=== PATIENT | female | born 1995 | race Hispanic/Latino ===

== ENCOUNTER 2018-05-17 17:42 | Emergency (ER) | payer SELFPAY ==
[2018-05-17] MEDS ORDERED: KETOROLAC 30 MG/ML INJ ONE (19:12)
[2018-05-17] MEDS ORDERED: FENTANYL CITR 100 MCG/2 ML ONE (19:12)
[2018-05-17] MEDS ORDERED: LIDOCAINE 1% MPF 30 ML VIAL ONE (20:13)
--- NOTE | 2018-05-17 20:52 | ER ---
Nurse's Notes [facility] Name: Bette Dahl Age: 23 yrs Sex: Female : 1995 Arrival Date: 05/17/2018 Time: 17:46 Bed 19 Private MD: None, None Diagnosis: Cutaneous abscess of limb;Cellulitis of left lower limb Presentation: 05/17 18:18 Presenting complaint: Patient states: Abscess to back of L upper leg, seen in [facility] and prescribed Clindamycin and bactroban, reports that mother drained abscess yesterday and today,appears to be approx nickel sized w/ purulent drainage noted, pt denies fever, V/D reports nausea yesterday. Transition of care: patient was not received from another setting of care. Onset of symptoms was May 17, 2018. Risk Assessment: Do you want to hurt yourself or someone else? Patient reports no desire to harm self or others. Initial Sepsis Screen: Does the patient meet any 2 criteria? No. Patient's initial sepsis screen is negative. Does the patient have a suspected source of infection? No. Patient's initial sepsis screen is negative. Care prior to arrival: None. 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 Denies injuries from another. Nutritional hb screening: No deficits noted. Tuberculosis screening: No symptoms or risk factors identified. Fall Risk None identified. Assessment: 18:27 General: Appears in no apparent distress. Behavior is calm, cooperative. Pain: Pain hb currently is 2 out of 10 on a pain scale. Neuro: Level of Consciousness is awake, alert, obeys commands, Oriented to person, place, time, situation. Cardiovascular: Capillary refill < 3 seconds Patient's skin is warm and dry. Respiratory: Airway is patent Trachea midline Respiratory effort is even, unlabored, Respiratory pattern is regular, symmetrical. GI: No signs and/or symptoms were reported involving the gastrointestinal system. : No signs and/or symptoms were reported regarding the genitourinary system. EENT: No signs and/or symptoms were reported regarding the EENT system. Derm: Skin is healthy with good turgor, Abscess located on left leg is nickel sized, has purulent drainage, is hot to touch, is red. Musculoskeletal: No signs and/or symptoms reported regarding the musculoskeletal system. 20:00 Reassessment: Patient and/or family updated on plan of care and expected duration. Pain ls4 level reassessed. Patient is alert, oriented x 3, equal unlabored respirations, skin warm/dry/pink. 21:14 Reassessment: Patient and/or family updated on plan of care and expected duration. Pain ls4 level reassessed. Patient is alert, oriented x 3, equal unlabored respirations, skin warm/dry/pink. Patient states symptoms have improved. Vital Signs: 18:21 BP 132 / 84; Pulse 115; Resp 16; Temp 98.5(TE); Pulse Ox 100% on R/A; Weight 90.26 kg; ph Height 4 ft. 11 in. (149.86 cm); 20:29 BP 131 / 82; Pulse 107; Resp 16; Pulse Ox 99% on R/A; mt 21:14 BP 130 / 80; Pulse 78; Resp 16; Pulse Ox 99% on R/A; Pain 3/10; ls4 18:21 Body Mass Index 40.19 (90.26 kg, 149.86 cm) ph ED Course: 17:46 Patient arrived in ED. mr 17:47 None, None is Private Physician. mr 18:15 Myra Crenshaw FNP-C [facility]. snw 18:15 Evangelista Diaz MD is Attending Physician. snw 18:21 Triage completed. ph 18:22 Arm band placed on. ph 18:27 Jany Strickland, RINA is Primary Nurse. hb 18:28 Patient has correct armband on for positive identification. Bed in low position. Call light in reach. Side rails up X 1. 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 Exp: ls4 06/25/2020. Lot #: [id number]. } Route: IM; Site: left deltoid; 21:31 Follow up: Response: No adverse reaction ls4 Outcome: 20:52 Discharge ordered by . snnicole 21:15 Discharged to home ambulatory, with family. ls4 21:15 Condition: good 21:15 Discharge instructions given to patient, friend, Instructed on discharge instructions, follow up and referral plans. medication usage, safety practices, Demonstrated understanding of instructions, follow-up care, medications, wound care, Prescriptions given X 1. 21:24 Patient left the ED. ls4 Signatures: Myra Crenshaw, INTERNAL COMBUSTION ENGINEER-C INTERNAL COMBUSTION ENGINEER-Lisset Pemberton Patricia RN RN Jany Lopez RN RN hb [facility] Varsha Christopher RN RN ls4
--- NOTE | 2018-05-17 20:53 | EDPHYS ---
Physician Documentation [facility] Name: Bette Dahl Age: 23 yrs Sex: Female : 1995 Arrival Date: 05/17/2018 Time: 17:46 Bed 19 Private MD: None, None ED Physician Evangelista Diaz HPI: 05/17 19:05 This 23 yrs old Female presents to ER via Ambulatory with complaints of snw Abscess. 19:05 The patient presents with an abscess of the left hamstring, The patient presents with snw cellulitis of the left hamstring. Description: firm exudate noted. Onset: The symptoms/episode began/occurred 1 week(s) ago, and became worse. Associated signs and symptoms: Pertinent positives: pain. Severity of symptoms: At their worst the symptoms were moderate. The patient has not experienced similar symptoms in the past. The patient has been recently seen by a physician: Pt was seen at a [place] ER and given oral and topical abx, area has since worsened and her Mom squeezed area and large amount of exudate returned. 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 ph Historical: - Allergies: 18:23 No Known Allergies; ph - Home Meds: 18:23 oral control [Active]; ph - PMHx: 18:23 None; ph - PSHx: 18:23 None; ph ROS: 19:04 Constitutional: Negative for fever, chills, and weight loss, Eyes: Negative for injury, snw pain, redness, and discharge, ENT: Negative for injury, pain, and discharge, Neck: Negative for injury, pain, and swelling, Cardiovascular: Negative for chest pain, palpitations, and edema, Respiratory: Negative for shortness of breath, cough, wheezing, and pleuritic chest pain, Abdomen/GI: Negative for abdominal pain, nausea, vomiting, diarrhea, and constipation, Back: Negative for injury and pain, : Negative for injury, bleeding, discharge, and swelling, Skin: Negative for injury, rash, and discoloration, Neuro: Negative for headache, weakness, numbness, tingling, and seizure, Psych: Negative for depression, anxiety, suicide ideation, homicidal ideation, and hallucinations. 19:04 MS/extremity: Positive for pain, of the left posterior thigh, abscess, cellulitis. Exam: 19:01 Constitutional: This is a well developed, well nourished patient who is awake, alert, snw and in no acute distress. Head/Face: Normocephalic, atraumatic. Eyes: Pupils equal round and reactive to light, extra-ocular motions intact. Lids and lashes normal. Conjunctiva and sclera are non-icteric and not injected. Cornea within normal limits. Periorbital areas with no swelling, redness, or edema. ENT: Nares patent. No nasal discharge, no septal abnormalities noted. Tympanic membranes are normal and external auditory canals are clear. Oropharynx with no redness, swelling, or masses, exudates, or evidence of obstruction, uvula midline. Mucous membranes moist. Neck: Trachea midline, no thyromegaly or masses palpated, and no cervical lymphadenopathy. Supple, full range of motion without nuchal rigidity, or vertebral point tenderness. No Meningismus. Chest/axilla: Normal chest wall appearance and motion. Nontender with no deformity. No lesions are appreciated. 19:01 Respiratory: Lungs have equal breath sounds bilaterally, clear to auscultation and percussion. No rales, rhonchi or wheezes noted. No increased work of breathing, no retractions or nasal flaring. Abdomen/GI: Soft, non-tender, with normal bowel sounds. No distension or tympany. No guarding or rebound. No evidence of tenderness throughout. Back: No spinal tenderness. No costovertebral tenderness. Full range of motion. MS/ Extremity: Pulses equal, no cyanosis. Neurovascular intact. Full, normal range of motion. Neuro: Awake and alert, GCS 15, oriented to person, place, time, and situation. Cranial nerves II-XII grossly intact. Motor strength 5/5 in all extremities. Sensory grossly intact. Cerebellar exam normal. Normal gait. Psych: Awake, alert, with orientation to person, place and time. Behavior, mood, and affect are within normal limits. 19:01 Cardiovascular: Rate: tachycardic, Pulses: no pulse deficits are appreciated, Edema: is not appreciated. 19:01 Skin: Appearance: normal except for affected area, abscess, that is moderate sized, approximately 2 cm(s), of the left hamstring, thick exudate noted. Vital Signs: 18:21 BP 132 / 84; Pulse 115; Resp 16; Temp 98.5(TE); Pulse Ox 100% on R/A; Weight 90.26 kg; ph Height 4 ft. 11 in. (149.86 cm); 20:29 BP 131 / 82; Pulse 107; Resp 16; Pulse Ox 99% on R/A; mt 21:14 BP 130 / 80; Pulse 78; Resp 16; Pulse Ox 99% on R/A; Pain 3/10; ls4 18:21 Body Mass Index 40.19 (90.26 kg, 149.86 cm) ph Procedures: 20:48 I \T\ D: Incision and drainage was performed for an abscess of the left left leg Prepped snw with hibiclens. Anesthetized with 8 ml's 1% Lidocaine. Drained small amount Loculations removed. Abscess cavity explored. Dressing: sterile 4x4 gauze, the patient tolerated the procedure well. MDM: 18:28 Patient medically screened. snw 20:48 Data reviewed: vital signs, nurses notes. Data interpreted: Pulse oximetry: on room air snw is 99 %. Interpretation: normal. Counseling: I had a detailed discussion with the patient and/or guardian regarding: the historical points, exam findings, and any diagnostic results supporting the discharge/admit diagnosis, radiology results, the need for outpatient follow up, to return to the emergency department if symptoms worsen or persist or if there are any questions or concerns that arise at home. Special discussion: I have referred the patient to see his PCP for further evaluation of high blood pressure. I discussed in detail with the patient the higher chance of wound infection based on his presenting history. Based on the history and exam findings, there is no indication for further emergent testing or inpatient evaluation. I discussed with the patient/guardian the need to see the primary care provider for further evaluation of the symptoms. 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 Exp: ls4 06/25/2020. Lot #: [id number]. } Route: IM; Site: left deltoid; 21:31 Follow up: Response: No adverse reaction ls4 Disposition: 05/18 07:03 Co-signature as Attending Physician, Evangelista Diaz MD. rn Disposition: 05/17/18 20:52 Discharged to Home. Impression: Cutaneous abscess of limb, Cellulitis of left lower limb. - Condition is Stable. - Discharge Instructions: Skin Abscess, Cellulitis, Adult, Heat Therapy. - Prescriptions for Diclofenac Sodium 75 mg Oral Tablet Sustained Release - take 1 tablet by ORAL route 2 times per day; 30 tablet. - Work release form, Medication Reconciliation Form, Thank You Letter, Antibiotic Education, Prescription Opioid Use form. - Follow up: Private Physician; When: 2 - 3 days; Reason: Recheck today's complaints, Continuance of care, Re-evaluation by your physician. Follow up: Emergency Department; When: As needed; Reason: Worsening of condition. - Notes: continue Clindamycin Signatures: Myra Crenshaw, LASTING MACHINE OPERATOR BED-C LASTING MACHINE OPERATOR BED-Csnw Evangelista Diaz MD MD rn Hall, Patricia, RN RN Varsha Christopher RN RN ls4 Corrections: (The following items were deleted from the chart) 05/17 20:52 20:52 05/17/2018 20:52 Discharged to Home. Impression: Cutaneous abscess of limb. snw Condition is Stable. Forms are Medication Reconciliation Form, Thank You Letter, Antibiotic Education, Prescription Opioid Use. Follow up: Private Physician; When: 2 - 3 days; Reason: Recheck today's complaints, Continuance of care, Re-evaluation by your physician. Follow up: Emergency Department; When: As needed; Reason: Worsening of condition. snw 21:24 20:52 05/17/2018 20:52 Discharged to Home. Impression: Cutaneous abscess of limb; ls4 Cellulitis of left lower limb. Condition is Stable. Forms are Medication Reconciliation Form, Thank You Letter, Antibiotic Education, Prescription Opioid Use. Follow up: Private Physician; When: 2 - 3 days; Reason: Recheck today's complaints, Continuance of care, Re-evaluation by your physician. Follow up: Emergency Department; When: As needed; Reason: Worsening of condition. snw
[2018-05-17] MEDS ORDERED: TETANUS & DIPHTHERIA TOX,ADULT 0.5 ML VIAL ONE (21:14)
== END 2018-05-17 21:24 | disposition home or self-care (01) ==
LOC: ER 17:42
PROC: 0J9P0ZZ Drainage of Left Lower Leg Subcutaneous Tissue and Fascia, Open Approach (ICD-10-PCS; principal; 2018-05-17)
DX: L03.116 Cellulitis of left lower limb (principal); Z23 Encounter for immunization
CPT/HCPCS: 90714; 96372; 99283; J3010

== ENCOUNTER 2019-03-05 20:52 | Observation (INO) | payer SELFPAY ==
[2019-03-05] MEDS ORDERED: ONDANSETRON 4 MG/2 ML VIAL ONE (21:14)
[2019-03-05] MEDS ORDERED: NA CHLORIDE 0.9% 1,000 ML ONE (21:14)
[2019-03-05] MEDS ORDERED: FAMOTIDINE 20 MG/2 ML VIAL IV ONE (21:15)
[2019-03-05 21:22] LABS: Absolute Lymphocytes (CBC) 3.3 K/uL (0.7-4.9); Basophils % 0.6 % (0-1.3); Hematocrit 40.8 % (36.0-45.0); Lymphocytes % 40.3 % (15.3-44.8); MPV 8.8 fL (7.6-11.3); RBC Red Blood Cell Count 4.54 M/uL (3.86-4.86)
[2019-03-05] MEDS ORDERED: MORPHINE 2 MG/ML SYR ONE ×3 (21:23→22:37)
[2019-03-05 21:40] LABS: ALT/SGPT 26 U/L (12-78); AST/SGOT 30 U/L (15-37); Alkaline Phosphatase 83 U/L (45-117); BUN Blood Urea Nitrogen 10 mg/dL (7-18); Bicarbonate 26 mmol/L (21-32); Bilirubin Direct 0.1 mg/dL (0-0.2); Bilirubin Total 0.4 mg/dL (0.2-1.0); Glucose Level 120 mg/dL (74-106); Lipase 164 U/L (73-393); Protein, Total 7.3 g/dL (6.4-8.2); Sodium Level 141 mmol/L (136-145)
[2019-03-05 22:32] LABS: Urine Blood NEGATIVE (NEG); Urine Glucose NEGATIVE (NEG); Urine Protein NEGATIVE (NEG); Urine Specific Gravity 1.025 (1.005-1.030)
--- NOTE | 2019-03-05 22:42 | EDPHYS ---
Physician Documentation [facility] Name: Bette Dahl Age: 24 yrs Sex: Female : 1995 Arrival Date: 03/05/2019 Time: 20:54 Bed 8 Private MD: ED Physician Rj Trujillo HPI: 03/05 21:10 This 24 yrs old Female presents to ER via Ambulatory with complaints of cp Abdominal Pain. 21:10 The patient presents with abdominal pain in the epigastric area. The symptoms do not cp radiate. Associated signs and symptoms: Pertinent positives: nausea and vomiting, chest pain, Pertinent negatives: constipation, diarrhea, dysuria, fever. 21:10 The symptoms are described as sharp. cp 21:10 Onset: The symptoms/episode began/occurred 10 minute(s) ago. Modifying factors: the cp symptoms are aggravated by pressure. Severity of pain: in the emergency department the pain is unchanged. 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 - Social history:: Smoking status: Patient/guardian denies using tobacco. - Ebola Screening: : No symptoms or risks identified at this time. ROS: 21:15 Constitutional: Negative for body aches, chills, fever, poor PO intake. cp 21:15 Eyes: Negative for injury, pain, redness, and discharge. cp 21:15 ENT: Negative for drainage from ear(s), ear pain, sore throat, difficulty swallowing, difficulty handling secretions. 21:15 Cardiovascular: Positive for chest pain. 21:15 Respiratory: Negative for cough, shortness of breath, wheezing. 21:15 Abdomen/GI: Positive for abdominal pain, nausea and vomiting, Negative for diarrhea, constipation, hematemesis. 21:15 Back: Negative for radiated pain. 21:15 : Negative for urinary symptoms, pelvic pain, flank pain, difficulty urinating. 21:15 Skin: Negative for rash. 21:15 Neuro: Negative for headache. 21:15 All other systems are negative. Exam: 21:20 Constitutional: The patient appears in no acute distress, alert, awake, cp non-diaphoretic, non-toxic, well developed, well nourished, uncomfortable. 21:20 Head/Face: Normocephalic, atraumatic. cp 21:20 Eyes: Periorbital structures: appear normal, Conjunctiva: normal, no exudate, no injection, Sclera: no appreciated abnormality, Lids and lashes: appear normal, bilaterally. 21:20 ENT: External ear(s): are unremarkable, Nose: is normal, Mouth: Lips: moist, Oral mucosa: pink and intact, moist, Posterior pharynx: is normal, airway is patent, no erythema, no exudate. 21:20 Chest/axilla: Inspection: normal, Palpation: is normal, no crepitus, no tenderness. 21:20 Cardiovascular: Rate: normal, Rhythm: regular. 21:20 Respiratory: the patient does not display signs of respiratory distress, Respirations: normal, no use of accessory muscles, no retractions, no splinting, no tachypnea, labored breathing, is not present, Breath sounds: are clear throughout, no decreased breath sounds, no stridor, no wheezing. 21:20 Abdomen/GI: Inspection: abdomen appears normal, Bowel sounds: active, all quadrants, Palpation: soft, in all quadrants, severe abdominal tenderness, in the epigastric area, voluntary guarding, is elicited in the epigastric area. 21:20 Back: pain, is absent, ROM is normal. 21:20 Neuro: Orientation: to person, place \T\ time. Mentation: is normal, Motor: moves all fours, strength is normal. Vital Signs: 21:06 BP 114 / 72; Pulse 90; Resp 18; Temp 97.8; Pulse Ox 100% on R/A; Weight 76.2 kg; Height aa1 4 ft. 11 in. (149.86 cm); Pain 7/10; 22:05 Pulse 70; Resp 16 S; Pulse Ox 100% on R/A; Pain 0/10; jd3 23:30 BP 113 / 59; Pulse 75; Resp 17 S; Pulse Ox 100% on R/A; jd3 21:06 Body Mass Index 33.93 (76.20 kg, 149.86 cm) aa1 MDM: 21:07 Patient medically screened. cp 22:35 Data reviewed: vital signs, nurses notes, lab test result(s), radiologic studies, cp ultrasound, I have discussed the patient's presentation/case with the attending Emergency Department Physician;. 22:40 Physician consultation: Estevan Lopez MD was called at 22:40, was contacted at 22:40, cp regarding admission, to the medical/surgical unit. patient's condition. 03/05 21:08 Order name: Basic Metabolic Panel; Complete Time: 21:42 03/05 21:42 Interpretation: Normal except: CL 109; GLUC 120. 03/05 21:08 Order name: CBC with Diff; Complete Time: 21:42 03/05 21:42 Interpretation: Reviewed. 03/05 21:08 Order name: Creatinine for Radiology; Complete Time: 21:42 03/05 21:08 Order name: Hepatic Function; Complete Time: 21:42 03/05 21:08 Order name: Lipase; Complete Time: 21:42 03/05 21:42 Interpretation: Reviewed. 03/05 22:29 Order name: Urine Dipstick--Ancillary (enter results); Complete Time: 22:34 [facility] 03/05 22:29 Order name: Urine --Ancillary (enter results); Complete Time: 22:34 [facility] 03/05 22:53 Order name: Basic Metabolic Panel [facility] 03/05 22:53 Order name: Basic Metabolic Panel [facility] 03/05 22:53 Order name: CBC with Automated Diff [facility] 03/05 22:53 Order name: CBC with Automated Diff [facility] 03/05 22:53 Order name: Lipase [facility] 03/05 22:53 Order name: Lipase [facility] 03/05 22:53 Order name: Liver (Hepatic) Function [facility] 03/05 21:08 Order name: IV Saline Lock; Complete Time: 21:20 03/05 21:08 Order name: Labs collected and sent; Complete Time: 21:20 03/05 21:08 Order name: Urine Dipstick-Ancillary (obtain specimen); Complete Time: 22:29 03/05 21:08 Order name: Urine Test (obtain specimen); Complete Time: 22:29 03/05 21:09 Order name: US Abdomen Limited 03/05 22:40 Order name: NPO; Complete Time: 22:43 03/05 22:53 Order name: NPO [facility] 09/29 22:53 Order name: Liver (Hepatic) Function EDMS Administered Medications: 21:25 Drug: Zofran 4 mg Route: IVP; Site: right antecubital; jd3 22:25 Follow up: Response: No adverse reaction jd3 21:25 Drug: Pepcid 20 mg Route: IVP; Site: right antecubital; jd3 22:25 Follow up: Response: No adverse reaction jd3 21:25 Drug: NS 0.9% 1000 ml Route: IV; Rate: 1 bolus; Site: right antecubital; jd3 23:01 Follow up: Response: No adverse reaction; IV Status: Completed infusion; IV Intake: jd3 1000ml 21:25 Drug: morphine 2 mg Route: IVP; Site: right antecubital; jd3 23:38 Follow up: Response: No adverse reaction; RASS: Alert and Calm (0) jd3 21:42 Drug: morphine 2 mg Route: IVP; Site: right antecubital; jd3 22:25 Follow up: Response: No adverse reaction; RASS: Alert and Calm (0) jd3 22:45 Drug: morphine 2 mg Route: IVP; Site: right antecubital; jd3 23:37 Follow up: Response: No adverse reaction; RASS: Alert and Calm (0) jd3 23:00 Drug: Rocephin 1 grams Route: IV; Rate: calculated rate; Site: right antecubital; jd3 23:37 Follow up: Response: No adverse reaction; IV Status: Completed infusion; IV Intake: [id number] Disposition: 03/06 06:32 Co-signature as Attending Physician, Rj Trujillo MD Available for consultation at ps1 all times . Disposition: 03/05/19 22:41 Hospitalization ordered by Estevan Lopez for Observation. Preliminary diagnosis are Cholelithiasis, Upper abdominal pain, unspecified - intractable. - Bed requested for Telemetry/MedSurg (observation). - Status is Observation. jd3 - Condition is Stable. - Problem is new. - Symptoms have improved. UTI on Admission? No Signatures: Dispatcher [employer] EDMS Dorene Aguilera RN RN mw Autenrieth, Alissa, RN RN aa1 Esau Anaya PA PA cp Davies, Jonathon, RN RN jd3 Singer, Phillip, MD MD ps1 Corrections: (The following items were deleted from the chart) 03/05 21:34 21:10 Onset: The symptoms/episode began/occurred suddenly, just prior to arrival, cp cp : 22:41 Hospitalization Ordered by Estevan Lopez MD for Observation. Preliminary cp diagnosis is Cholecystitis. Bed requested for Telemetry/MedSurg (observation). Status is Observation. Condition is Stable. Problem is new. Symptoms have improved. UTI on Admission? No. cp : 23:04 03/05/2019 22:41 Hospitalization Ordered by Estevan Lopez MD for Observation. mw Preliminary diagnosis is Cholelithiasis; Upper abdominal pain, unspecified - intractable. Bed requested for Telemetry/MedSurg (observation). Status is Observation. Condition is Stable. Problem is new. Symptoms have improved. UTI on Admission? No. cp 03/06 00:08 03/05 23:29 03/05/2019 22:41 Hospitalization Ordered by Estevan Lopez MD for jd3 Observation. Preliminary diagnosis is Cholelithiasis; Upper abdominal pain, unspecified - intractable. Bed requested for Telemetry/MedSurg (observation). Status is Observation. Condition is Stable. Problem is new. Symptoms have improved. UTI on Admission? No. mw
--- NOTE | 2019-03-05 22:42 | ER ---
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 Transition of care: patient was not received from another setting of care. Onset of symptoms was March 05, 2019. Risk Assessment: Do you want to hurt yourself or someone else? Patient reports no desire to harm self or others. Initial Sepsis Screen: Does the patient meet any 2 criteria? No. Patient's initial sepsis screen is negative. Does the patient have a suspected source of infection? Yes: Acute abdominal pain. Care prior to arrival: None. 21:04 Method Of Arrival: Ambulatory aa1 21:04 Acuity: SHAKIRA 3 aa1 Triage Assessment: 21:06 General: Appears in no apparent distress. uncomfortable, Behavior is calm, cooperative, aa1 appropriate for age. 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 - Social history:: Smoking status: Patient/guardian denies using tobacco. - Ebola Screening: : No symptoms or risks identified at this time. Screenin:31 Abuse screen: Denies threats or abuse. Nutritional screening: No deficits noted. jd3 Tuberculosis screening: No symptoms or risk factors identified. Fall Risk IV access (20 points). Ambulatory Aid- None/Bed Rest/Nurse Assist (0 pts). Gait- Normal/Bed Rest/Wheelchair (0 pts) Mental Status- Oriented to own ability (0 pts). Total Cervantes Fall Scale indicates No Risk (0-24 pts). Assessment: 21:05 General: Appears in no apparent distress. uncomfortable, Behavior is calm, cooperative, jd3 appropriate for age. Pain: Complains of pain in epigastric area Quality of pain is described as sharp, tender. Neuro: Level of Consciousness is awake, alert, obeys commands, Oriented to person, place, time, situation. Cardiovascular: Capillary refill < 3 seconds Patient's skin is warm and dry. Respiratory: Airway is patent Respiratory effort is even, unlabored, Respiratory pattern is regular, symmetrical. GI: Abdomen is round non-distended, Bowel sounds present X 4 quads. Abd is soft X 4 quads Abdomen is tender to palpation X 4 quads. Reports upper abdominal pain, nausea, Patient currently denies diarrhea. : No signs and/or symptoms were reported regarding the genitourinary system. EENT: No signs and/or symptoms were reported regarding the EENT system. Derm: Skin is intact, Skin is dry, Skin is normal, Skin temperature is warm. Musculoskeletal: Circulation, motion, and sensation intact. Range of motion: intact in all extremities. 21:33 Reassessment: Patient appears in no apparent distress at this time. Patient and/or jd3 family updated on plan of care and expected duration. Pain level reassessed. Patient is alert, oriented x 3, equal unlabored respirations, skin warm/dry/pink. pt reports relief from pain Patient states feeling better. 21:42 Reassessment: pt reported pain returning, provider notified. new order received, see jd3 MAR. 22:05 Reassessment: Patient appears in no apparent distress at this time. Patient and/or jd3 family updated on plan of care and expected duration. Pain level reassessed. Patient is alert, oriented x 3, equal unlabored respirations, skin warm/dry/pink. pt reports relief from pain. 23:30 Reassessment: Patient appears in no apparent distress at this time. Patient and/or jd3 family updated on plan of care and expected duration. Pain level reassessed. Patient is alert, oriented x 3, equal unlabored respirations, skin warm/dry/pink. Patient states feeling better. Vital Signs: 21:06 BP 114 / 72; Pulse 90; Resp 18; Temp 97.8; Pulse Ox 100% on R/A; Weight 76.2 kg; Height aa1 4 ft. 11 in. (149.86 cm); Pain 7/10; 22:05 Pulse 70; Resp 16 S; Pulse Ox 100% on R/A; Pain 0/10; jd3 23:30 BP 113 / 59; Pulse 75; Resp 17 S; Pulse Ox 100% on R/A; jd3 21:06 Body Mass Index 33.93 (76.20 kg, 149.86 cm) aa1 ED Course: 20:54 Patient arrived in ED. mr 21:02 Esau Anaya PA is PHCP. cp 21:02 Rj Trujillo MD is Attending Physician. cp 21:05 Triage completed. aa1 21:06 Arm band placed on right wrist. aa1 21:10 Elmer Varela RN is Primary Nurse. jd3 21:18 Inserted saline lock: 20 gauge in right antecubital area, using aseptic technique. mt Blood collected. 21:56 US Abdomen Limited In Process Unspecified. EDMS 22:41 Estevan Lopez MD is Hospitalizing Provider. cp 23:31 Patient has correct armband on for positive identification. Bed in low position. Call jd3 light in reach. Side rails up X2. Adult w/ patient. 23:41 No provider procedures requiring assistance completed. Patient admitted, IV remains in jd3 place. Administered Medications: 21:25 Drug: Zofran 4 mg Route: IVP; Site: right antecubital; jd3 22:25 Follow up: Response: No adverse reaction jd3 21:25 Drug: Pepcid 20 mg Route: IVP; Site: right antecubital; jd3 22:25 Follow up: Response: No adverse reaction jd3 21:25 Drug: NS 0.9% 1000 ml Route: IV; Rate: 1 bolus; Site: right antecubital; jd3 23:01 Follow up: Response: No adverse reaction; IV Status: Completed infusion; IV Intake: jd3 1000ml 21:25 Drug: morphine 2 mg Route: IVP; Site: right antecubital; jd3 23:38 Follow up: Response: No adverse reaction; RASS: Alert and Calm (0) jd3 21:42 Drug: morphine 2 mg Route: IVP; Site: right antecubital; jd3 22:25 Follow up: Response: No adverse reaction; RASS: Alert and Calm (0) jd3 22:45 Drug: morphine 2 mg Route: IVP; Site: right antecubital; jd3 23:37 Follow up: Response: No adverse reaction; RASS: Alert and Calm (0) jd3 23:00 Drug: Rocephin 1 grams Route: IV; Rate: calculated rate; Site: right antecubital; jd3 23:37 Follow up: Response: No adverse reaction; IV Status: Completed infusion; IV Intake: [id number] Intake: 23:01 IV: 1000ml; Total: 1000ml. jd3 23:37 IV: 10ml; Total: 1010ml. jd3 Outcome: 22:41 Decision to Hospitalize by Provider. cp 23:41 Admitted to Med/surg accompanied by tech, via wheelchair, room 409, with chart, Report jd3 called to Sussy FLYNN 23:41 Condition: stable 23:41 Instructed on the need for admit, Demonstrated understanding of instructions. 03/06 00:08 Patient left the ED. guerrero Signatures: Dispatcher [employer] EDMS Queenie Mckeon RN RN aa1 Deon, Lisset mr Esau Anaya PA PA cp Thompson, Elmer Rod mt, RN RN jd3 Corrections: (The following items were deleted from the chart) 03/05 23:38 22:25 Response: No adverse reaction jofe jofe
[2019-03-05] MEDS ORDERED: MORPHINE 4 MG/ML SYR IV PRN (22:48)
[2019-03-05] MEDS ORDERED: ONDANSETRON 4 MG/2 ML VIAL IV PRN (22:48)
[2019-03-05] MEDS ORDERED: ACETAMINOPHEN 500 MG TAB PO PRN (22:48)
--- NOTE | 2019-03-05 22:55 | RAD REPORT ---
EXAM DESCRIPTION: US - Abdomen Exam Limited - 03/05/2019 9:56 pm CLINICAL HISTORY: EPIGASTRIC PAIN COMPARISON: <Comparisons> FINDINGS: The gallbladder demonstrates several large shadowing stones No pericholecystic fluid or ga llbladder wall thickening. The common bile duct is normal measuring 5-6 mm. The liver demonstrates no findings of intrahepatic biliary dilatation. IMPRESSION: Cholelithiasis.
[2019-03-05] MEDS ORDERED: CEFTRIAXONE/SWI 1gm 1 GM/10 ML SYR ONE (22:58)
[2019-03-06 00:20] VITALS: BMI 35.5
[2019-03-06] MEDS: D5 0.45 NS 1,000 ML IV SCH ×2 (00:29→09:00)
[2019-03-06 05:43] LABS: Absolute Lymphocytes (CBC) 2.9 K/uL (0.7-4.9); Basophils % 0.5 % (0-1.3); Hematocrit 36.6 % (36.0-45.0); Lymphocytes % 32.5 % (15.3-44.8); MPV 9.1 fL (7.6-11.3); RBC Red Blood Cell Count 4.12 M/uL (3.86-4.86)
[2019-03-06 05:58] LABS: ALT/SGPT 27 U/L (12-78); AST/SGOT 22 U/L (15-37); Albumin 3.4 g/dL (3.4-5.0); Alkaline Phosphatase 69 U/L (45-117); BUN Blood Urea Nitrogen 6 mg/dL (7-18); Bicarbonate 25 mmol/L (21-32); Bilirubin Direct 0.1 mg/dL (0-0.2); Bilirubin Total 0.4 mg/dL (0.2-1.0); Glucose Level 87 mg/dL (74-106); Lipase 99 U/L (73-393); Potassium 3.6 mmol/L (3.5-5.1); Protein, Total 6.2 g/dL (6.4-8.2); Sodium Level 141 mmol/L (136-145)
[2019-03-06] MEDS ORDERED: INFLUENZA VACCINE (for 3y+) 0.5 ML DOSE IMVAC ONE (08:00)
[2019-03-06] MEDS ORDERED: CEFTRIAXONE 1 GM/NS 50 ML 1 GM/50 ML BAG IV SCH (09:00)
[2019-03-06] MEDS ORDERED: CEFTRIAXONE/SWI 1gm 1 GM/10 ML SYR IV SCH (09:00)
--- NOTE | 2019-03-06 11:10 | HP ---
Date of Admission: 03/05/2019 Reason For Service: Epigastric right upper quadrant pain, acute cholecystitis, and symptomatic toribio lithiasis. History Of Present Illness: This is the case of a 24-year-old patient, came overnight to the ER, com plaining of epigastric right upper quadrant pain radiating to the back with nausea, vomiting. The pa in is constant and intractable. She denies any dysuria, hematuria, hematochezia, or melena. Denies any recent traveling out of the country. Denies any family member sick at home. Allergies: NONE. Medical Problems: None. Surgeries: None. Last menstrual period 01/11/2019. Family History: Unremarkable. Social History: She does not smoke. She does not drink alcohol. Review of Systems: Ten points, otherwise unremarkable. Physical Examination: General: Patient is awake and alert. HEENT: Pupils are equal and reactive, anicteric. Neck: Supple. Chest: Clear. Heart: S1, S2. Abdomen: Epigastric right upper quadrant tenderness with Guy sign positive. Breasts, Rectal, Pel alvin: Deferred. Extremities: Good capillary refill. NEUROLOGIC: Oriented x3. Laboratory Data: Blood work shows WBC count of 8.2 with hemoglobin of 13.8 and platelets of 227. Sod ium is 141, chloride is 109, glucose 120. UA, nitrite negative. Urine test negative. Abd omen ultrasound interpreted by Dr. Quigley as cholelithiasis. Assessment: This is a 24-year-old patient with intractable right upper quadrant pain, diagnosed with acute cholecystitis, symptomatic cholelithiasis. Guy sign positive. She does not want to go home . She is very tender. She wants the gallbladder to be removed during this admission. The patient w as admitted to the hospital and explained that the options for laparoscopic, possible open cholecyste ctomy with benefits, alternatives, and risks including, but not limited to infection, bleeding, damag e to adjacent structures as complication, choledocholithiasis, bile leak, pancreatitis, LA, and even . She also understands this may not relieve any symptoms, she might need more than one surgical intervention. She understood, signed a consent. The patient was booked in OR. ALVARO/ROBBIE Voice ID: [id number]
[2019-03-06] MEDS ORDERED: Ringers Lactate 1,000 ML IV ONE (11:25)
[2019-03-06] MEDS ORDERED: PROPOFOL 200 MG/20 ML VIAL IV ONE (11:57)
[2019-03-06] MEDS ORDERED: GLYCOPYRROLATE 0.2 MG/ML SYR ONE (11:58)
[2019-03-06] MEDS ORDERED: LIDOCAINE 2% MPF 5 ML VIAL ONE (11:58)
[2019-03-06] MEDS ORDERED: FENTANYL CITR 250 MCG/5 ML ONE (11:58)
[2019-03-06] MEDS ORDERED: MIDAZOLAM HCL 2 MG/2 ML INJ ONE (11:58)
--- NOTE | 2019-03-06 12:45 | P.BOP ---
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
[2019-03-06] MEDS ORDERED: ONDANSETRON 4 MG/2 ML VIAL ONE (13:05)
[2019-03-06] MEDS ORDERED: ROCURONIUM 50 MG/5 ML VIAL IV ONE (13:05)
[2019-03-06] MEDS ORDERED: NEOSTIGMINE 1 MG/ML -10 ML VIAL ONE (13:05)
[2019-03-06] MEDS ORDERED: CODEINE 30MG/APAP 300MG TAB PO PRN (13:20)
[2019-03-06 13:31] VITALS: O2SAT 100
[2019-03-06 20:10] VITALS: BP 120/68; TEMP 98.7
--- NOTE | 2019-03-08 13:27 | OP ---
Surgeon: Estevan Lopez MD Participant Administrator: ELIZABETH Mckay. Preoperative Diagnoses: Acute cholecystitis, symptomatic cholelithiasis. Postoperative Diagnoses: Acute cholecystitis, symptomatic cholelithiasis. Procedure: Laparoscopic cholecystectomy. Anesthesia: General. Indications: This is a case of a female who comes to us with above diagnosis. Fully explained the b enefits, alternatives, and risks of laparoscopic, possible open cholecystectomy, which include but ar e not limited to infection, bleeding, damage to adjacent structures and complication, choledocholithi asis, bile leak, pancreatitis, MT, and even . She also understands this may not relieve the sym ptoms. She may need more than 1 surgical intervention. She understood, signed a consent. Description Of Procedure: The patient was brought to the operating room, placed in supine position. Anesthesia was given without complication. Abdominal area was prepped and draped in the usual steri le fashion. Marcaine 0.5% was injected for local anesthetic, followed by sharp incision of the skin in the infraumbilical region. Incision was carried down to fascia, which was opened under direct vis ion. Peritoneum was encountered, opened under direct vision. Vicryl #1 placed inside the fascia. H asson trocar was carefully introduced. No bleeding was obtained. I placed 3 more trocars, 5 mm each one of them, 1 in the epigastric area, 2 in the right upper quadrant under direct visualization. Th is allowed me to put a grasper in the dome of the fundus of the gallbladder, another grasper in the i nfundibulum, retracted the gallbladder in the inferolateral fashion exposing the triangle of Calot, o btaining critical view of safety. Cystic duct and cystic artery were clearly isolated free circumfer entially and a connection between those and the gallbladder was clearly identified. I proceeded to l igate those by using at least 3 clips proximal, 1 clip distal, ligation in middle. Same was done wit h the cystic artery. No bile leak. No bleeding. The gallbladder was removed from liver using hook Bovie cauterizer and removed from abdominal cavity using EndoCatch through the umbilical incision. T he area was inspected once again. No bile leak. No bleeding. Gallbladder fossa was intact. At patrick t moment, I proceeded to remove the trocars under direct vision. Deflated the pneumoperitoneum. Tanisha sed the fascia with #1 Vicryl. Irrigated subcu tissue, closed with 3-0 chromic and skin approximated . Sponge count and instrument counts were correct. The patient tolerated the procedure well. [facility]. ALVARO/ROBBIE Voice ID: [id number] Report ID: [id number]
--- NOTE | 2019-03-08 13:33 | DS ---
Date of Discharge: 03/06/2019 Diagnoses: Acute cholecystitis, symptomatic cholelithiasis. Procedure: Laparoscopic cholecystectomy. The patient will be discharged home if she can tolerate diet. Discharge Instructions: Follow in my office in 1 week if she goes home today otherwise tomorrow morn ing. No heavy lifting, no more than 20 pounds. Keep area dry for 48 hours, then may shower. Medications: See orders. ALVARO/ROBBIE Voice ID: [id number] Report ID: [id number]
== END 2019-03-06 20:15 | disposition home or self-care (01) ==
LOC: ER 20:52 → ERHOLD 22:46 → 4TH 23:56
PROVIDERS: ADMIT Surgery; ATTEND Surgery
PROC: 0FT44ZZ Resection of Gallbladder, Percutaneous Endoscopic Approach (ICD-10-PCS; principal; 2019-03-05)
DX: K80.00 Calculus of gallbladder with acute cholecystitis without obstruction (principal); Z28.21 Immunization not carried out because of patient refusal
CPT/HCPCS: 36415; 76705; 80048; 80076; 81003; 81025; 83690; 85025; 88304; 96361; 96365; 96375; 99285; G0378; J0696; J2250; J2270; J2405; J2704; J2710; J3010; J7030

== ENCOUNTER 2019-07-22 16:24 | Emergency (ER) | payer SELFPAY ==
--- NOTE | 2019-07-22 18:26 | EDPHYS ---
Physician Documentation [facility] Name: Bette Dahl Age: 24 yrs Sex: Female : 1995 Arrival Date: 07/22/2019 Time: 16:27 Bed 26 Private MD: ED Physician Esau Child HPI: 07/22 18:12 This 24 yrs old Female presents to ER via Ambulatory with complaints of Ankle snw Injury. 18:12 The patient presents with a contusion, decreased range of motion, an injury, pain, snw swelling, tenderness. The complaints affect the left ankle. Onset: The symptoms/episode began/occurred suddenly, last night. Context: pt states, "I got drunk and fell off the porch". Associated signs and symptoms: The patient has no apparent associated signs or symptoms. Modifying factors: The symptoms are alleviated by sitting. Severity of symptoms: At their worst the symptoms were moderate. It is unknown whether or not the patient has had similar symptoms in the past. It is unknown whether or not the patient has recently seen a physician. denies LOC. denies vomiting. Historical: - Allergies: 17:14 No Known Allergies; ls4 - Home Meds: 17:14 ORAL CONTROL [Active]; ls4 - PMHx: 17:15 None; ls4 - PSHx: 17:14 Cholecystectomy; ls4 - Immunization history:: Adult Immunizations up to date. - Coronavirus screen:: The patient has NOT traveled to [place] in the past 14 days. Proceed with normal triage process as indicated. - Social history:: Smoking status: Patient denies any tobacco usage or history of. - Ebola Screening: : No symptoms or risks identified at this time. ROS: 18:11 Constitutional: Negative for fever, chills, and weight loss, Eyes: Negative for injury, snw pain, redness, and discharge, ENT: Negative for injury, pain, and discharge, Neck: Negative for injury, pain, and swelling, Cardiovascular: Negative for chest pain, palpitations, and edema, Respiratory: Negative for shortness of breath, cough, wheezing, and pleuritic chest pain, Abdomen/GI: Negative for abdominal pain, nausea, vomiting, diarrhea, and constipation, Back: Negative for injury and pain, : Negative for injury, bleeding, discharge, and swelling, Skin: Negative for injury, rash, and discoloration, Neuro: Negative for headache, weakness, numbness, tingling, and seizure. 18:11 MS/extremity: Positive for injury or acute deformity, decreased range of motion, pain, swelling, tenderness, of the left ankle. Exam: 18:09 Constitutional: This is a well developed, well nourished patient who is awake, alert, snw and in no acute distress. Head/Face: Normocephalic, atraumatic. Eyes: Pupils equal round and reactive to light, extra-ocular motions intact. Lids and lashes normal. Conjunctiva and sclera are non-icteric and not injected. Cornea within normal limits. Periorbital areas with no swelling, redness, or edema. ENT: Nares patent. No nasal discharge, no septal abnormalities noted. Tympanic membranes are normal and external auditory canals are clear. Oropharynx with no redness, swelling, or masses, exudates, or evidence of obstruction, uvula midline. Mucous membranes moist. Neck: Trachea midline, no thyromegaly or masses palpated, and no cervical lymphadenopathy. Supple, full range of motion without nuchal rigidity, or vertebral point tenderness. No Meningismus. Cardiovascular: Regular rate and rhythm with a normal S1 and S2. No gallops, murmurs, or rubs. Normal PMI, no JVD. No pulse deficits. Respiratory: Lungs have equal breath sounds bilaterally, clear to auscultation and percussion. No rales, rhonchi or wheezes noted. No increased work of breathing, no retractions or nasal flaring. Abdomen/GI: Soft, non-tender, with normal bowel sounds. No distension or tympany. No guarding or rebound. No evidence of tenderness throughout. Back: No spinal tenderness. No costovertebral tenderness. Full range of motion. Skin: Warm, dry with normal turgor. Normal color with no rashes, no lesions, and no evidence of cellulitis. Neuro: Awake and alert, GCS 15, oriented to person, place, time, and situation. Cranial nerves II-XII grossly intact. Motor strength 5/5 in all extremities. Sensory grossly intact. Cerebellar exam normal. Normal gait. Psych: Awake, alert, with orientation to person, place and time. Behavior, mood, and affect are within normal limits. 18:09 Chest/axilla: Inspection: normal, Palpation: tenderness, that is moderate, of the anterior aspect of left upper chest, Breasts: are normal. 18:09 Musculoskeletal/extremity: Extremities: grossly normal except: noted in the left lateral ankle: contusion, decreased ROM, ecchymosis, swelling, tenderness, ROM: limited active range of motion due to pain, in the left lateral ankle, limited passive range of motion due to pain, Circulation is intact in all extremities. Compartment Syndrome exam of affected extremity: is normal. Vital Signs: 16:56 BP 112 / 70 LA; Pulse 87; Resp 17; Temp 98.5(O); Pulse Ox 99% on R/A; Pain 2/10; jb1 18:50 BP 110 / 60; Pulse 74; Resp 16; Temp 98.4(O); Pulse Ox 99% on R/A; Pain 5/10; ls4 MDM: 16:57 Patient medically screened. snw 18:26 Data reviewed: vital signs, nurses notes. Data interpreted: Pulse oximetry: on room air snw is 99 %. Interpretation: normal. Counseling: I had a detailed discussion with the patient and/or guardian regarding: the historical points, exam findings, and any diagnostic results supporting the discharge/admit diagnosis, radiology results, the need for outpatient follow up, to return to the emergency department if symptoms worsen or persist or if there are any questions or concerns that arise at home. Special discussion: Based on the history and exam findings, there is no indication for further emergent testing or inpatient evaluation. I discussed with the patient/guardian the need to see the orthopedic surgeon for further evaluation of the symptoms. I discussed with the patient/guardian the need to see the primary care provider for further evaluation of the symptoms. 07/22 17:49 Order name: Ankle Left 3 View XRAY snw 07/22 17:54 Order name: Chest Pa And Lat (2 Views) XRAY snw 07/22 18:24 Order name: Walking boot; Complete Time: 18:49 snw Administered Medications: 18:40 Drug: Blanco 5 mg-325 mg 1 tabs Route: PO; ls4 Disposition: 07/22/19 18:25 Discharged to Home. Impression: Fall (on) (from) unspecified stairs and steps, Contusion of front wall of thorax, Sprain of ankle. - Condition is Stable. - Discharge Instructions: Elastic Bandage and RICE, Ankle Sprain, Chest Contusion, Adult, Fall Prevention in the Home, Ankle Pain, Cryotherapy, Walking Boot. - Prescriptions for Diclofenac Sodium 75 mg Oral Tablet Sustained Release - take 1 tablet by ORAL route 2 times per day; 30 tablet. - Medication Reconciliation Form, Thank You Letter, Antibiotic Education, Prescription Opioid Use, Work release form form. - Follow up: Emergency Department; When: As needed; Reason: Worsening of condition. Follow up: Private Physician; When: 2 - 3 days; Reason: Recheck today's complaints, Continuance of care, Re-evaluation by your physician. Addendum: 07/24/2019 08:26 Co-signature as Attending Physician, Esau Child MD I agree with the assessment and c sanz plan of care. Signatures: Dispatcher [employer] EDEsau Duke MD MD cha Therrien, Shelly, ADVERTISING VICE PRESIDENT-C ADVERTISING VICE PRESIDENT-Csnw Varsha Christopher, RN RN ls4 Corrections: (The following items were deleted from the chart) 07/22 18:56 18:25 07/22/2019 18:25 Discharged to Home. Impression: Fall (on) (from) unspecified ls4 stairs and steps; Contusion of front wall of thorax; Sprain of ankle. Condition is Stable. Forms are Medication Reconciliation Form, Thank You Letter, Antibiotic Education, Prescription Opioid Use. Follow up: Emergency Department; When: As needed; Reason: Worsening of condition. Follow up: Private Physician; When: 2 - 3 days; Reason: Recheck today's complaints, Continuance of care, Re-evaluation by your physician. snw
--- NOTE | 2019-07-22 18:26 | ER ---
Nurse's Notes [facility] Name: Bette Dahl Age: 24 yrs Sex: Female : 1995 Arrival Date: 07/22/2019 Time: 16:27 Bed 26 Private MD: Diagnosis: Fall (on) (from) unspecified stairs and steps;Contusion of front wall of thorax;Sprain of ankle Presentation: 07/22 17:07 Presenting complaint: Patient states: LEFT ANKLE PAIN. ANKLE IS BRUISED. PT FELL LAST ls4 NIGHT. Transition of care: patient was not received from another setting of care. Onset of symptoms was July 22, 2019 at 17:08. Risk Assessment: Do you want to hurt yourself or someone else? Patient reports no desire to harm self or others. Initial Sepsis Screen: Does the patient meet any 2 criteria? No. Patient's initial sepsis screen is negative. Does the patient have a suspected source of infection? No. Patient's initial sepsis screen is negative. Care prior to arrival: None. 17:07 Method Of Arrival: Ambulatory ls4 17:07 Acuity: SHAKIRA 4 ls4 Triage Assessment: 16:50 General: Appears uncomfortable, Behavior is calm, cooperative. Pain: Complains of pain ls4 in left lateral ankle, left medial ankle and anterior aspect of left ankle Pain currently is 7 out of 10 on a pain scale. Quality of pain is described as throbbing. Neuro: No deficits noted. Cardiovascular: No deficits noted. Respiratory: No deficits noted. Derm: Bruising that is dark purple, on anterior aspect of left ankle. Musculoskeletal: Circulation, motion, and sensation intact. Capillary refill < 3 seconds, Range of motion: limited in left ankle Swelling present in left lateral ankle, left medial ankle and anterior aspect of left ankle Historical: - Allergies: 17:14 No Known Allergies; ls4 - Home Meds: 17:14 ORAL CONTROL [Active]; ls4 - PMHx: 17:15 None; ls4 - PSHx: 17:14 Cholecystectomy; ls4 - Immunization history:: Adult Immunizations up to date. - Coronavirus screen:: The patient has NOT traveled to [place] in the past 14 days. Proceed with normal triage process as indicated. - Social history:: Smoking status: Patient denies any tobacco usage or history of. - Ebola Screening: : No symptoms or risks identified at this time. Screenin:18 Abuse screen: Denies threats or abuse. Denies injuries from another. Nutritional ls4 screening: No deficits noted. Tuberculosis screening: No symptoms or risk factors identified. Fall Risk None identified. Assessment: 18:02 Musculoskeletal: Circulation, motion, and sensation intact. Capillary refill < 3 ls4 seconds, Range of motion: limited in left ankle. 18:02 Neuro: No deficits noted. Cardiovascular: No deficits noted. Respiratory: No deficits ls4 noted. Vital Signs: 16:56 BP 112 / 70 LA; Pulse 87; Resp 17; Temp 98.5(O); Pulse Ox 99% on R/A; Pain 2/10; jb1 18:50 BP 110 / 60; Pulse 74; Resp 16; Temp 98.4(O); Pulse Ox 99% on R/A; Pain 5/10; ls4 ED Course: 16:27 Patient arrived in ED. mr 16:45 Myra Crenshaw FNP-C [facility] snw 16:45 Esau Child MD is Attending Physician. snw 16:50 Arm band placed on. ls4 17:07 Varsha Christopher, RN is Primary Nurse. ls4 17:09 Triage completed. ls4 17:18 Patient has correct armband on for positive identification. Bed in low position. Call ls4 light in reach. Side rails up X 1. Adult w/ patient. Verbal reassurance given. ICE TO INJURY. 18:49 Chest Pa And Lat (2 Views) XRAY Sent. ls4 18:49 Ankle Left 3 View XRAY Sent. ls4 18:56 No provider procedures requiring assistance completed. Patient did not have IV access ls4 during this emergency room visit. 3D boot applied to left foot. Administered Medications: 18:40 Drug: [place] 5 mg-325 mg 1 tabs Route: PO; ls4 Outcome: 18:25 Discharge ordered by . snw 18:56 Patient left the ED. ls4 20:07 Discharged to home ambulatory, with friend. ls4 20:07 Condition: stable 20:07 Discharge instructions given to patient, family, Instructed on discharge instructions, follow up and referral plans. medication usage, Demonstrated understanding of instructions, follow-up care, medications, Prescriptions given X 1. Signatures: Fidencio Abebe jb1 Myra Crenshaw FNP-C COMPLAINT CLERK-Csnw Lisset Chavarria mr Varsha Christopher, RN RN ls4
[2019-07-22] MEDS ORDERED: HYDROCODONE/APAP 5/325 MG TAB ONE (18:38)
[2019-07-22 19:39] VITALS: BP 112/70; TEMP 98.5; O2SAT 99
--- NOTE | 2019-07-22 19:53 | RAD REPORT ---
EXAM DESCRIPTION: RAD - Chest Single View - 07/22/2019 6:15 pm CLINICAL HISTORY: TRAUMA, chest pain COMPARISON: No comparisons TECHNIQUE: AP portable chest image was obtained 07/22/2019 6:15 pm . FINDINGS: Lungs are clear. Heart and vasculature are normal. No measurable pleural effusion and no p neumothorax. No acute bony abnormality seen. No acute aortic findings suspected. IMPRESSION: No acute cardiopulmonary process.
--- NOTE | 2019-07-22 19:54 | RAD REPORT ---
EXAM DESCRIPTION: RAD - Ankle Left 3 View - 07/22/2019 6:13 pm CLINICAL HISTORY: Fall, twisting injury, ankle pain COMPARISON: None. FINDINGS: No fracture, dislocation or periosteal reaction. No joint effusion seen. No joint space na rrowing. No soft tissue abnormality. Lateral soft tissue swelling is present. IMPRESSION: Soft tissue swelling with no left ankle fracture.
== END 2019-07-22 18:56 | disposition home or self-care (01) ==
LOC: ER 16:24
DX: S20.212A Contusion of left front wall of thorax, initial encounter (principal); S93.402A Sprain of unspecified ligament of left ankle, initial encounter; W17.89XA Other fall from one level to another, initial encounter; Y93.89 Activity, other specified; Y92.9 Unspecified place or not applicable
CPT/HCPCS: 71045; 99284

== ENCOUNTER 2020-04-25 11:48 | Emergency (ER) | payer SELFPAY ==
--- OUTSIDE RECORDS SUMMARY | 2020-04-25 11:57 | XMS REPORT | Continuity of Care Document ---
:1995 Author Organization [facility] t Address [address] [place] [address] Care Team Providers Name Role Phone Lab, Dewey Pob I Attending Clinician Unavailable Problems This patient has no known problems. Allergies, Adverse Reactions, Alerts This patient has no known allergies or adverse reactions. Medications This patient has no known medications. Procedures This patient has no known procedures. Encounters Start End Encounter Admission Attending Care Care Encounter Source Date/Time Date/Time Type Type Clinicians Facility Department ID 2019-12-13 2019-12-13 Laboratory Lab, Adc [facility] [id number] 07:53:50 08:13:50 Only Fam Pob [facility] [id number] [place] [id number] [place] [phone] [address] Results This patient has no known results.
[2020-04-25 13:03] LABS: Urine Blood TRACE (NEG); Urine Glucose NEGATIVE (NEG); Urine Protein NEGATIVE (NEG); Urine Specific Gravity 1.025 (1.005-1.030)
[2020-04-25 13:56] LABS: Absolute Lymphocytes (CBC) 1.7 K/uL (0.7-4.9); Basophils % 0.6 % (0-1.3); Hematocrit 39.6 % (36.0-45.0); Lymphocytes % 17.6 % (15.3-44.8); MPV 9.2 fL (7.6-11.3); RBC Red Blood Cell Count 4.45 M/uL (3.86-4.86)
[2020-04-25 14:43] LABS: BUN Blood Urea Nitrogen 8 mg/dL (7-18); Bicarbonate 24 mmol/L (21-32); Glucose Level 89 mg/dL (74-106); HCG, Quantitative 26934 mIU/mL (1-3); Potassium 3.9 mmol/L (3.5-5.1); Sodium Level 140 mmol/L (136-145)
--- NOTE | 2020-04-25 14:53 | RAD REPORT ---
EXAM DESCRIPTION: US - Transvaginal OB - 04/25/2020 2:18 pm CLINICAL HISTORY: ABD CRAMPING, COMPARISON: No comparisons FINDINGS: A single gestational sac is seen within the uterus. The shape of the sac is within normal limits for gestational age. No yolk sac or embryo detected within the sac. No placental tissue The maternal adnexa and ovaries are within normal limits. Normal Doppler blood flow was demonstrated to both ovaries. IMPRESSION: Fairly large gestational sac is present within the uterus without evidence of yolk sac o r embryo. Findings raise suspicion for blighted ovum, however a follow-up sonogram would be recommend ed in 7-10 days along with serial HCG level correlation.
--- NOTE | 2020-04-25 14:59 | ER ---
Nurse's Notes [facility] Name: Bette Dahl Age: 25 yrs Sex: Female : 1995 Arrival Date: 04/25/2020 Time: 11:49 Bed 13 Private MD: Diagnosis: Threatened Presentation: 04/25 12:32 Chief complaint: Patient states: im eight weeks and i went for my first appt iw and they sent me here for possible miscarriage. Coronavirus screen: Client denies travel out of the [place] in the last 14 days. Ebola Screen: Patient negative for fever greater than or equal to 101.5 degrees Fahrenheit, and additional compatible Ebola Virus Disease symptoms. 12:32 Method Of Arrival: Ambulatory iw 12:32 Acuity: SHAKIRA 3 iw 12:32 Initial Sepsis Screen: Does the patient meet any 2 criteria? No. Patient's initial iw sepsis screen is negative. Does the patient have a suspected source of infection? No. Patient's initial sepsis screen is negative. Risk Assessment: Do you want to hurt yourself or someone else? Patient reports no desire to harm self or others. Onset of symptoms was April 25, 2020. 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 - Social history:: Smoking status: Patient denies any tobacco usage or history of. Screenin:00 Abuse screen: Denies threats or abuse. Denies injuries from another. Nutritional ca1 screening: No deficits noted. Tuberculosis screening: No symptoms or risk factors identified. Fall Risk IV access (20 points). Assessment: 12:35 General: Appears in no apparent distress. comfortable, Behavior is calm, cooperative, ca1 appropriate for age. Pain: Denies pain. Neuro: Level of Consciousness is awake, alert, obeys commands, Oriented to person, place, time, situation. Cardiovascular: Heart tones S1 S2 present Capillary refill < 3 seconds Patient's skin is warm and dry. Respiratory: Airway is patent Respiratory effort is even, unlabored, Respiratory pattern is regular, symmetrical, Breath sounds are clear bilaterally. GI: Abdomen is round non-distended, Bowel sounds present X 4 quads. Abd is soft and non tender X 4 quads. : No signs and/or symptoms were reported regarding the genitourinary system. EENT: No signs and/or symptoms were reported regarding the EENT system. Derm: Skin is intact, is healthy with good turgor, Skin is pink, warm \T\ dry. Musculoskeletal: Circulation, motion, and sensation intact. Capillary refill < 3 seconds. 13:30 Reassessment: Patient appears in no apparent distress at this time. Patient and/or ca1 family updated on plan of care and expected duration. Pain level reassessed. Patient is alert, oriented x 3, equal unlabored respirations, skin warm/dry/pink. 14:38 Reassessment: Patient appears in no apparent distress at this time. Patient and/or ca1 family updated on plan of care and expected duration. Pain level reassessed. Patient is alert, oriented x 3, equal unlabored respirations, skin warm/dry/pink. 15:36 Reassessment: Patient appears in no apparent distress at this time. Patient and/or ca1 family updated on plan of care and expected duration. Pain level reassessed. Patient is alert, oriented x 3, equal unlabored respirations, skin warm/dry/pink. Vital Signs: 12:32 BP 126 / 73; Pulse 88; Resp 18; Temp 99.4(TE); Pulse Ox 99% on R/A; Weight 72.57 kg iw (R); Height 4 ft. 11 in. (149.86 cm); Pain 3/10; 14:30 BP 110 / 68; Pulse 81; Resp 16 S; Pulse Ox 100% on R/A; ca1 15:36 BP 116 / 71; Pulse 85; Resp 16 S; Pulse Ox 100% on R/A; ca1 12:32 Body Mass Index 32.32 (72.57 kg, 149.86 cm) iw ED Course: 11:49 Patient arrived in ED. ag5 12:01 Lori Peña FNP-C is PHCP. kb 12:02 Esau Child MD is Attending Physician. kb 12:41 Toya Cunningham, RINA is Primary Nurse. ca1 13:00 Patient has correct armband on for positive identification. Placed in gown. Bed in low ca1 position. Call light in reach. Side rails up X 1. Pulse ox on. NIBP on. Warm blanket given. 13:00 Arm band placed on. ca1 13:03 Triage completed. iw 13:24 Initial lab(s) drawn, by me, sent to lab. Inserted saline lock: 20 gauge in right ca1 antecubital area, using aseptic technique. Blood collected. 14:18 US Transvaginal Ob In Process Unspecified. EDMS 15:37 No provider procedures requiring assistance completed. IV discontinued, intact, ca1 bleeding controlled, No redness/swelling at site. Pressure dressing applied. Administered Medications: No medications were administered Outcome: 14:59 Discharge ordered by . kb 15:37 Discharged to home ambulatory, with friend. ca1 15:37 Condition: stable 15:37 Discharge instructions given to patient, Instructed on discharge instructions, follow up and referral plans. Demonstrated understanding of instructions, follow-up care. 15:38 Patient left the ED. ca1 Signatures: Dispatcher [employer] EDND Lori Peña, GLOBAL DIRECTOR AIR AND CLIMATE CHANGE-C NABEEL-Octavia Montaño RN RINA Toya Cunningham RN RN ca1 Fred Mandel ag5
--- NOTE | 2020-04-25 14:59 | EDPHYS ---
Physician Documentation [facility] Name: Bette Dahl Age: 25 yrs Sex: Female : 1995 Arrival Date: 04/25/2020 Time: 11:49 Bed 13 Private MD: ED Physician Esau Child HPI: 04/25 13:04 This 25 yrs old Female presents to ER via Ambulatory with complaints of kb Abdominal Pain, 9 wks Preg. 13:04 The patient presents to the emergency department with abdominal pain. course: kb care: at a clinic. Previous pregnancies: the patient has never been . Associated signs and symptoms: Pertinent positives: abdominal pain, Pertinent negatives: vaginal bleeding, vaginal discharge. The patient has not experienced similar symptoms in the past. The patient has been recently seen by a physician:. Pt reports she went to the help clinic today to confirm and they sent her here to rule out ectopic . 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 - Social history:: Smoking status: Patient denies any tobacco usage or history of. ROS: 13:16 Constitutional: Negative for fever, chills, and weight loss, Cardiovascular: Negative kb for chest pain, palpitations, and edema, Respiratory: Negative for shortness of breath, cough, wheezing, and pleuritic chest pain, Back: Negative for injury and pain, : Negative for injury, bleeding, discharge, and swelling, MS/Extremity: Negative for injury and deformity, Skin: Negative for injury, rash, and discoloration, Neuro: Negative for headache, weakness, numbness, tingling, and seizure. 13:16 Abdomen/GI: Positive for abdominal pain, Negative for nausea, vomiting, and diarrhea. Exam: 13:16 Constitutional: This is a well developed, well nourished patient who is awake, alert, kb and in no acute distress. Head/Face: Normocephalic, atraumatic. Chest/axilla: Normal chest wall appearance and motion. Nontender with no deformity. No lesions are appreciated. Cardiovascular: Regular rate and rhythm with a normal S1 and S2. No gallops, murmurs, or rubs. Normal PMI, no JVD. No pulse deficits. Respiratory: Lungs have equal breath sounds bilaterally, clear to auscultation and percussion. No rales, rhonchi or wheezes noted. No increased work of breathing, no retractions or nasal flaring. Skin: Warm, dry with normal turgor. Normal color with no rashes, no lesions, and no evidence of cellulitis. MS/ Extremity: Pulses equal, no cyanosis. Neurovascular intact. Full, normal range of motion. Neuro: Awake and alert, GCS 15, oriented to person, place, time, and situation. Cranial nerves II-XII grossly intact. Motor strength 5/5 in all extremities. Sensory grossly intact. Cerebellar exam normal. Normal gait. 13:16 Abdomen/GI: Inspection: abdomen appears normal, Bowel sounds: normal, in all quadrants, Palpation: soft, in all quadrants, mild abdominal tenderness, in the suprapubic area and left lower quadrant. Vital Signs: 12:32 BP 126 / 73; Pulse 88; Resp 18; Temp 99.4(TE); Pulse Ox 99% on R/A; Weight 72.57 kg iw (R); Height 4 ft. 11 in. (149.86 cm); Pain 3/10; 14:30 BP 110 / 68; Pulse 81; Resp 16 S; Pulse Ox 100% on R/A; ca1 15:36 BP 116 / 71; Pulse 85; Resp 16 S; Pulse Ox 100% on R/A; ca1 12:32 Body Mass Index 32.32 (72.57 kg, 149.86 cm) iw MDM: 12:28 Patient medically screened. kb 13:16 Data reviewed: vital signs, nurses notes. Data interpreted: Pulse oximetry: on room air kb is 99 %. Interpretation: normal. 14:38 Counseling: I had a detailed discussion with the patient and/or guardian regarding: the kb historical points, exam findings, and any diagnostic results supporting the discharge/admit diagnosis, lab results, radiology results, the need for outpatient follow up, an OB/Gyne specialist, to return to the emergency department if symptoms worsen or persist or if there are any questions or concerns that arise at home. 04/25 12:50 Order name: Urine Dipstick--Ancillary (enter results); Complete Time: 13:04 em1 04/25 12:50 Order name: Urine --Ancillary (enter results); Complete Time: 13:04 em1 04/25 13:04 Order name: Quantitative Hcg; Complete Time: 14:51 kb 04/25 13:04 Order name: Abo/rh Typing; Complete Time: 14:51 kb 04/25 13:04 Order name: Basic Metabolic Panel; Complete Time: 14:51 kb 04/25 13:04 Order name: CBC with Diff; Complete Time: 14:21 kb 04/25 12:02 Order name: Urine Test (obtain specimen); Complete Time: 12:44 kb 04/25 12:02 Order name: Urine Dipstick-Ancillary (obtain specimen); Complete Time: 12:44 kb 04/25 13:04 Order name: IV Saline Lock; Complete Time: 13:24 kb 04/25 13:04 Order name: Labs collected and sent; Complete Time: 13:23 kb 04/25 13:04 Order name: NPO; Complete Time: 13:23 kb 04/25 13:04 Order name: US Transvaginal Ob; Complete Time: 14:58 kb Administered Medications: No medications were administered Disposition: 04/26 06:04 Co-signature as Attending Physician, Esau Child MD I agree with the assessment and angel luis plan of care. Disposition: 04/25/20 14:59 Discharged to Home. Impression: Threatened . - Condition is Stable. - Discharge Instructions: Threatened Miscarriage, [id number], Pelvic Rest. - Medication Reconciliation Form, Thank You Letter, Antibiotic Education, Prescription Opioid Use form. - Follow up: Emergency Department; When: As needed; Reason: Worsening of condition. Follow up: Private Physician; When: 2 - 3 days; Reason: Recheck today's complaints, Continuance of care, Re-evaluation by your physician. Signatures: Dispatcher [employer] Lori Newberry, ASSISTANT PROFESSOR OF LIFE SCIENCES-C ASSISTANT PROFESSOR OF LIFE SCIENCES-Esau Mendoza MD MD cha Acob, Cheryl, RN RN ca1 Corrections: (The following items were deleted from the chart) 04/25 15:38 14:59 04/25/2020 14:59 Discharged to Home. Impression: Threatened . Condition ca1 is Stable. Forms are Medication Reconciliation Form, Thank You Letter, Antibiotic Education, Prescription Opioid Use. Follow up: Emergency Department; When: As needed; Reason: Worsening of condition. Follow up: Private Physician; When: 2 - 3 days; Reason: Recheck today's complaints, Continuance of care, Re-evaluation by your physician. kb
[2020-04-26 02:45] VITALS: TEMP 99.4
[2020-04-26 02:47] VITALS: O2SAT 100
[2020-04-26 02:49] VITALS: BP 116/71
== END 2020-04-25 15:38 | disposition home or self-care (01) ==
LOC: ER 11:48
DX: O20.0 Threatened abortion (principal); Z3A.09 9 weeks gestation of pregnancy
CPT/HCPCS: 36415; 76817; 80048; 81003; 81025; 84702; 85025; 86900; 86901; 99284

== ENCOUNTER 2020-05-19 08:09 | Emergency (ER) | payer OTHER, SELFPAY ==
--- OUTSIDE RECORDS SUMMARY | 2020-05-19 08:12 | XMS REPORT | Continuity of Care Document ---
:1995 Author Organization [facility] t Address [address] [place] [address] Care Team Providers Name Role Phone Jhonathan Marcus Attending Clinician Problems This patient has no known problems. Allergies, Adverse Reactions, Alerts This patient has no known allergies or adverse reactions. Medications This patient has no known medications. Procedures This patient has no known procedures. Encounters Start End Encounter Admission Attending Care Care Encounter Source Date/Time Date/Time Type Type Clinicians Facility Department ID 2020-05-08 2020-05-08 BENEDICTO Sierra [id number] 08:54:15 10:00:35 Richard Ring GIN FEEDER [id number] Visit REGIONAL [id number] MATERNAL [id number] & CHILD [address] [place] [address] Results This patient has no known results.
--- OUTSIDE RECORDS SUMMARY | 2020-05-19 08:12 | XMS REPORT | Summary of Care ---
:1995 Author Organization [facility] - Health Address [address] [place] [address] Care Team Providers Name Role Phone Heather Tamar [facility] Provider [phone] Encounter Details Date Type Department Care Team Description 05/08/2020 Orders Only [facility] Doctor Unassigned, No [address] [facility] [place] [address] [address] [place] [address] Allergies Not on Filedocumented as of this encounter (statuses as of 05/08/2020) Medications Not on filedocumented as of this encounter (statuses as of 05/08/2020) Active Problems Not on filedocumented as of this encounter (statuses as of 05/08/2020) Social History Tobacco Use Types Packs/Day Years Used Date Never Assessed Sex Assigned at Date Recorded Not on file documented as of this encounter Last Filed Vital Signs Not on filedocumented in this encounter Plan of Treatment Date Type Specialty Care Team Description 05/08/2020 Initial Visit OB Satellites Jhonathan Burton, METAPHYSICIAN [address] [place], [place] [address] [phone] Health Maintenance Due Date Last Done Comments VARICELLA VACCINES (1 of 2 - 01/21/1996 2-dose childhood series) HPV VACCINES (1 - 2-dose series) 2006 Depression Screening 2007 DTaP,Tdap,and Td Vaccines (1 - 2014 Tdap) PAP SMEAR 01/21/2016 INFLUENZA VACCINE (#1) 2020 PNEUMOCOCCAL 0-64 YEARS COMBINED Aged Out No longer eligible based on SERIES patient's age to complete this topic documented as of this encounter Procedures Procedure Name Priority Date/Time Associated Diagnosis Comme nts ASSIGNMENT OF BENEFITS Routine 05/08/2020 8:27 AM DIVISION HEAD documented in this encounter Results Not on filedocumented in this encounter
--- OUTSIDE RECORDS SUMMARY | 2020-05-19 08:12 | XMS REPORT | Summary of Care ---
:1995 Author Organization [facility] Address [address] [place] [id number] Care Team Providers Name Role Phone Heather Tamar Lizarraga [facility] Primary Care Provider [phone] Reason for Visit Reason Comments New OB Visit Encounter Details Date Type Department Care Team Description 05/08/2020 Initial [facility]- Richard Burton upervision of high risk in first trimester (Primary Dx); Visit Lalitha R, TOE PUNCHER Primigravida in first trimester; [address] [place] [address] Screening for viral disease; [address] [place] Obesity in ; [facility], [place] BMI 33.0-33.9,a [facility] [id number] Allergies No Known Allergiesdocumented as of this encounter (statuses as of 05/08/2020) Medications No known medicationsdocumented as of this encounter (statuses as of 05/08/2020) Active Problems Problem Noted Date BMI 33.0-33.9,adult 05/08/2020 Screening for viral disease 05/08/2020 Obesity in 05/08/2020 Primigravida in first trimester 05/08/2020 Supervision of high risk in first trimester 05/08/2020 Estimated Date of Delivery Comments Yes 12/17/2020 Based on last menstr ual period of 03/12/2020 (Exact Date) documented as of this encounter (statuses as of 05/08/2020) Social History Tobacco Use Types Packs/Day Years Used Date Never Smoker Smokeless Tobacco: Never Used Alcohol Use Drinks/Week oz/Week Comments Not Currently 2 glasses daily before Estimated Date of Delivery Comments Yes 12/17/2020 Based on last menstr ual period of 03/12/2020 (Exact Date) Sex Assigned at Date Recorded Not on file COVID-19 Exposure Response Date Recorded In the last month, have you been in contact with No / Unsure 05/08/2020 9:04 AM [employer] someone who was confirmed or suspected to have Coronavirus / COVID-19? documented as of this encounter Last Filed Vital Signs Vital Sign Reading Time Taken Comments Blood Pressure 127/69 05/08/2020 9:05 AM [employer] Pulse 86 05/08/2020 9:05 AM [employer] Temperature 37.2 C (98.9 F) 05/08/2020 9:05 AM [employer] Respiratory Rate 16 05/08/2020 9:05 AM [employer] Oxygen Saturation - - Inhaled Oxygen Concentration - - Weight 76 kg (167 lb 9.6 oz) 05/08/2020 9:05 AM [employer] Height 149.9 cm (4' 11") 05/08/2020 9:05 AM [employer] Body Mass Index 33.85 05/08/2020 9:05 AM [employer] documented in this encounter Patient Instructions Patient InstructionsJoyce Otoole, RINA - 05/08/2020 8:30 AM CST Patient Education Prevention Guidelines,Women Ages 18 to 39 Screening tests and vaccines are an important part of managing your health. A screening test is doneto find possible disorders or diseases in people who don't have any symptoms. The goal is to find a disease early so lifestyle changes can be made and you can be watched more closely to reduce the riskof disease, or to detect it early enough to treat it most effectively. Screening tests are not considered diagnostic, but are used to determine if more testing is needed. Health counseling is essential, too. Below are guidelines for these, for women ages 18 to 39. Talk with your healthcare provider tomake sure youre up-to-date on what you need. Screening Who needs it How often Alcohol misuse All women in this age group At routine exams Blood pressure All women in this age group Yearly checkup if your blood pressure is normal Normal blood pressure is less than 120/80 mm Hg If your blood pressure reading is higher than normal, follow the advice of your healthcare provider Breast cancer All women in this age group should talk with their healthcare providers about the needfor clinical breast exams (CBE)1 Clinical breast exam every 3 years1 Cervical cancer Women ages 21 and older Women between ages 21 and 29 should have a Pap test every 3years; women between ages 30 and 65 are advised to have a Pap test plus an HPV test every 5 years Chlamydia Sexually active women ages 24 and younger, and women at increased risk for infection Every 3 years if you're at risk or have symptoms Depression All women in this age group At routine exams Diabetes mellitus, type 2 Adults with no symptoms who are overweight or obese and have 1 or more other risk factors for diabetes At least every 3 years. Also, testing for diabetes during after the 24th week. Gonorrhea Sexually active women at increased risk for infection At routine exams Hepatitis C Anyone at increased risk At routine exams HIV All women At routine exams3 Obesity All women in this age group At routine exams Syphilis Women at increased risk for infection should talk with their healthcare provider At routine exams Tuberculosis Women at increased risk for infection should talk with their healthcare provider Ask your healthcare provider Vision All women in this age group At least 1 complete exam in your 20s, and 2 in your 30s Vaccine Who needs it How often Chickenpox (varicella) All women in this age group who have no record of this infection or vaccine2 doses; the second dose should be given 4 to 8 weeks after the first dose Hepatitis A Women at increased risk for infection should talk with their healthcare provider 2 doses given at least 6 months apart Hepatitis B Women at increased risk for infection should talk with their healthcare provider 3 doses over 6 months; second dose should be given 1 month after the first dose; the third dose should be given at least 2 months after the second dose and at least 4 months after the first dose Haemophilus influenzae Type B (HIB) Women at increased risk for infection should talk with their healthcare provider 1 to 3 doses Human papillomavirus (HPV) All women in this age group up to age 26 3 doses; the second dose should be given 1 to 2 months after the first dose and the third dose given 6 months after the first dose Influenza (flu) All women in this age group Once a year Measles, mumps, rubella (MMR) All women in this age group who have no record of these infections orvaccines 1 or 2 doses Meningococcal Women at increased risk for infection should talk with their healthcare provider 1 ormore doses Pneumococcal conjugate vaccine (PCV13)and pneumococcal polysaccharidevaccine(PPSV23) Women atincreased risk for infection should talk with their healthcare provider PCV13: 1 dose ages 19 to 65(protects against 13 types of pneumococcal bacteria) PPSV23: 1 to2 doses through age 64, or 1 dose at 65 or older (protects against 23 types of pneumococcal bacteria) Tetanus/diphtheria/pertussis (Td/Tdap) booster All women in this age group Td every 10 years, or a one-time dose of Tdap instead of a Td booster after age 18, then Td every 10 years Counseling Who needs it How often BRCA gene mutation testing for breast and ovarian cancer susceptibility Women with increased risk for having gene mutation When your risk is known Breast cancer and chemoprevention Women at high risk for breast cancer When your risk is known Diet and exercise Women who are overweight or obese When diagnosed, and then at routine exams Domestic violence Women at the age in which they are able to have children At routine exams Sexually transmitted infection prevention Women who are sexually active At routine exams Skin cancer Prevention of skin cancer in fair-skinned adults At routine exams Use of tobacco and the health effects it can cause All women in this age group Every visit 1 According to the ACS, women ages 20 to 39 years should have a clinical breast exam (CBE) as part of their routine health exam every 3 years. Breast self-exams are an option for women starting in their 20s.But the U.S. Preventive Services Task Force (USPSTF) does not recommend CBE. 2 Those who are 18 years old and not up-to-date on their childhood vaccines should get all appropriate catch-up vaccines recommended by the CDC. 3 The USPSTF recommends that all people ages 15 to 65 years be screened for HIV and those younger orolder people at increased risk. The CDC recommends that everyone between the ages of 13 and 64 get tested for HIV at least once as part of routine health care. Cu[employer] last reviewed this educational content on 03/07/201719992996-7171 [employer]. All rights reserved. This information is not intended as a substitute for professional medical care. Always follow your healthcare professional's instructions. Patient Education Understanding STIs When it comes to sex, nothing is risk-free. Any sexual contact with the penis, vagina, anus, or mouth can spread a sexually transmitted infection (STI). These include chlamydia, gonorrhea, herpes, HIV,and genital warts. STIs are also known as sexually transmitted diseases (STDs). The only sure way toprevent STIs is not having sex (abstinence). But there are ways to make sex safer. Use a latex condom each time you have sex. And choose your partner wisely. Use condoms for safer sex If you have sex, latex condoms provide the best protection against STIs. Latex condoms stop the exchange of body fluids that carry certain STIs. They also limit contact with affected skin. Be aware that a condom doesnt cover all skin. So affected skin that isn't covered can still transfer disease. But youre safer with a condom than without one. Use a condom even if you use other control. control methods such as the pill or IUD help prevent , but they don't protect against STIs. Choose the right condom Condoms made of latex prevent disease best. If youre allergic to latex, use polyurethane condoms instead. Male condoms fit over the penis. Female condoms line the vagina. Before buying a condom, read the label to be sure it prevents disease. Some novelty condoms dont. The right lubricant helps Buy lubricated condoms or use lubricant. This provides greater comfort and reduces the risk for condom breakage. Use only water-based lubricants. Dont use oil, lotion, or petroleum jelly. They can weaken the condom, causing breakage. Also, you may want to choose lubricants without nonoxynol-9. This spermicide may cause irritation. It can raise the risk for certain STIs. Use condoms correctly For condoms to work, they must be used the right way. Keep these tips in mind: Use a new latex condom each time you have sex. Slip the condom on the penis before any contact ismade. When ready to withdraw, hold the rim of the condom as the penis pulls out. This prevents the condom from slipping off. Check the expiration date before using a condom. Dont store condoms in places that can get hot, such as a car or a wallet that is carried in a back pocket. Get to know your partner Safer sex is a process. It involves getting to know your partner and making informed choices. Ask each other how many partners you have had in the past, and how many you have now. Find out if either ofyou has HIV or any other STI. If you decide to have sex, use a condom each time. Dont stop using condoms unless youre sure neither of you has other partners and youve both been tested to confirm you dont have HIV or other STIs. Then stay free of disease by having sex only with each other (monogamy). Keep your cool Dont let alcohol or drugs cloud your judgment. They could lead you to have sex with someone you wouldnt have chosen if you were sober. Or you might forget to use a condom. If you do plan to have sex, keep a latex condom with you. Dont wait until youre in the heat of passion to try to find one. Consider abstinence The only way to be sure you wont get an STI is to abstain from sex. Abstinence is a choice that many people make at some point in their life. Maybe you want to wait until you are sure youre readybefore you have sex. Maybe youd like a break from the responsibilities of sex for a while. Or maybe you just want to know your partner better before taking the next step. Abstinence is a choice you can make now to protect your future. Cu[employer] last reviewed this educational content on 05/07/201819999854-4201 [employer]. [address] [place] [address]. All rights reserved. This information is not intended as a substitute for professional medical care. Always follow your healthcare professional's instructions. Patient Education Understanding HIV and AIDS It's important to know how HIV can get into your body and what happens once its there. Then youll be better prepared to protect yourself or others against this virus. A person with HIV can look and feel perfectly healthy. But that person can give HIV to others as soon as he or she is infected with the virus. Having unsafe or unprotected sex or sharing needles puts you at risk for HIV. Talk with your healthcare provider about ways to protect yourself or a loved one from getting HIV. How HIV infection progresses After HIV enters the body, it attacks the immune system in the stages below. A person with HIV can infect others once the virus gets into the blood. HIV with no symptoms. A person with HIV may have no symptoms for years. The only sign of infection may be a positive blood test for HIV 2 weeks to 3 months or later after HIV enters the body. HIV with symptoms. Some people develop an illness similar to mono (mononucleosis) 2 to 4 weeks after the virus enters the body. This is called acute retroviral syndrome. Symptoms may include swollen lymph glands, chills, fever, night sweats, weakness, weight loss, skin rashes, mouth ulcers, or sore t hroat. Symptoms may be mild or the person can feel quite sick. Even without treatment the symptoms almost always go away in a few days or up to 2 to 3 weeks. Then the person has no symptoms, often for years. But over time the immune system starts to get weaker and symptoms start appearing. People at this stage may have a yeast infection in the mouth (oral thrush), shingles, skin problems, pneumonia, diarrhea that keeps coming back, or weight loss. AIDS. AIDS is the most advanced stage of HIV infection, when the immune system is severely weakened.Certain rare diseases and cancers that normally would not occur, now can occur because the body can no longer fight them well enough. It is often these diseases that cause in people with AIDS. HIV may also directly attack the brain and nervous system. This causes seizures and loss of memory and body movement. It also affects many other parts of the body. This leads to problems such as anemia, low white blood cell count, diarrhea, belly pain, skin problems, and many others. How HIV enters the body HIV is carried in semen, vaginal fluid, blood, and breastmilk. During sex, HIV can enter the body. It gets in through the fragile tissue and linings, sores, or cuts in or around the vagina, penis, anus, and mouth. During drug use, tattooing, or body piercing, the virus can enter the blood through an infected needle. A mother who has HIV can infect her child during , childbirth, and . Cu[employer] last reviewed this educational content on 11/05/201819991445-0202 [employer]. [address] [place] [address]. All rights reserved. This information is not intended as a substitute for professional medical care. Always follow your healthcare professional's instructions. Patient Education Clinical Breast Exam Many health organizations recommend a yearly clinical breast exam. This exam may be done by a locomotive firer/fireman, family healthcare provider, nurse practitioner, nurse clarification operator, or specially trained nurse. Yearly breast exams help tomake surethat breast conditions are found early. Your healthcare providers role A healthcare professional knows the tests and follow-up care needed if a problem is found. Your clinical exam is also a great time to ask questions about breast self-exams. You can find out if yourechecking your breasts in the best way. Or you may want to ask how , breast implants, or breast reduction surgery affect the way you should check your breasts. Diagnostic tests If a clinical exam reveals a breast change, you may have other tests to find out more. These tests may include: Mammography. A low-dose X-ray of your breast tissue. Ultrasound. An imaging test that uses sound waves to create images of your breast. Biopsy. A small amount of breast tissue is removed by needle or by a cut (incision). The tissue is then checked under a microscope. Guidelines for having clinical breast exams The [place] [employer] recommends that starting at age 29, you should have a clinical breast exam every 1 to 3 years. After age 40, have a clinical breast exam each year. If youre at higher risk for breast cancer, you may need exams more often. Risk factors for breast cancer may include: Being over 50 or postmenopausal Having a family history of breast cancer Having the BRCA1 or BRCA2 gene mutation or certain other gene mutations Having more menstrual periods due to starting menstruation early(before age 12) or having a late menopause (after age 55) Having no pregnancies Having a first after age 30 Being obese Having a history of radiation treatment to your chest area Exposure to YASHIRA during your mother's Not being active Drinking too much alcohol Having dense breast tissue Taking hormone therapy after menopause Other health organizations have different recommendations. Talk with your healthcare provider about what is best for you. [employer] last reviewed this educational content on 09/06/201919994864-1904 [employer]. All rights reserved. This information is not intended as a substitute for professional medical care. Always follow your healthcare professional's instructions. Patient Education Breast Health: Breast Self-Awareness What is breast self-awareness? Breast self-awareness is knowing how your breasts normally look and feel. Your breasts change as yougo through different stages of your life. So its important to learn what is normal for your breasts. Knowing about your breasts helps you spot any changes in them right away. Tell your healthcare provider about any changes. Why is breast self-awareness important? Many experts now say that women should focus on breast self-awareness instead of doing a breast self-examination (BSE). These experts include the [place] [employer] and the [place] [employer]. Some experts even advise not teaching women to do a BSE. Thats because research hasnt shown a clear benefit to doing BSEs. Breast self-awareness is different than a BSE. It isnt about following a certain method and schedule. Its about knowing what's normal for your breasts. That way you can spot even small changes right away. If you see any changes, tell your healthcare provider. Changes to look for Call your healthcare provider if you find any changes in your breasts that worry you. These changes may be: A lump Nipple discharge other than breast milk, especially if it's bloody Swelling A change in size or shape Skin changes, such as redness, thickening, or dimpling of the skin Swollen lymph nodes in the armpit Nipple problems, such as pain or redness If you find a lump Call your provider if you find lumpiness in one breast. Also call if you feel something different inthe tissue or feel a definite lump. Sometimes lumpiness may be due to menstrual changes. But there may be reason for concern. Your provider may want to see you right away if you have: Nipple discharge that is bloody Skin changes on your breast, such as dimpling or puckering Its okay to be upset if you find a lump. Be sure to call your provider right away. Remember that most breast lumps are benign. This means they are not cancer. Brandy last reviewed this educational content on 10/06/201919994996-8553 [employer]. All rights reserved. This information is not intended as a substitute for professional medical care. Always follow your healthcare professional's instructions. Patient Education Understanding USDA MyPlate The USDA has guidelines to help you make healthy food choices. These are called MyPlate. MyPlate shows the food groups that make up healthy meals using the image of a place setting. Before you eat, think about the healthiest choices for what to put on your plate or in your cup or bowl. To learn more about building a healthy plate, visit www.choosemyplate.gov. The food groups Fruits. Any fruit or 100% fruit juice counts as part of the Fruit Group. Fruits may be fresh, canned, frozen, or dried, and may be whole, cut-up, or pureed. Make 1/2 of your plate fruits and vegetables. Vegetables. Any vegetable or 100% vegetable juice counts as a member of the Vegetable Group. Vegetables may be fresh, frozen, canned, or dried. They can be served raw or cooked and may be whole, cut-up, or mashed. Make 1/2 of your plate fruits and vegetables. Grains. All foods made from grains are part of the Grains Group. These include wheat, rice, oats,cornmeal, and barley. Grains are often used to make foods such as bread, pasta, oatmeal, cereal, tortillas, and grits. Grains should be no more than 1/4 of your plate. At least half of your grains should be whole grains. Protein. This group includes meat, poultry, seafood, beans and peas, eggs, processed soy products(such as tofu), nuts (including nut butters), and seeds. Make protein choices no more than 1/4 of your plate. Meat and poultry choices should be lean or low fat. Dairy. The Dairy Group includes all fluid milk products and foods made from milk that contain calcium, such as yogurt and cheese. (Foods that have little calcium, such as cream, butter, and cream cheese, are not part of this group.) Most dairy choices should be low-fat or fat-free. Oils. Oils aren't a food group, but they do contain essential nutrients. However it's important to watch your intake of oils. These are fats that are liquid at room temperature. They include canola,corn, olive, soybean, vegetable, and sunflower oil. Foods that are mainly oil include mayonnaise, certain salad dressings, and soft margarines. You likely already get your daily oil allowance from the foods you eat. Things to limit Eating healthy also means limiting these things in your diet: Salt (sodium). Many processed foods have a lot of sodium. To keep sodium intake down, eat fresh vegetables, meats, poultry, and seafood when possible. Purchase low-sodium, reduced-sodium, or fb-seai-fbypa food products at the store. And don't add salt to your meals at home. Instead, season them with herbs and spices such as dill, oregano, cumin, and paprika. Or try adding flavor with lemon or limezest and juice. Saturated fat. Saturated fats are most often found in animal products such as beef, pork, and chicken. They are often solid at room temperature, such as butter. To reduce your saturated fat intake, choose leaner cuts of meat and poultry. And try healthier cooking methods such as grilling, broiling,roasting, or baking. For a simple lower-fat swap, use plain nonfat yogurt instead of mayonnaise whenmaking potato salad or macaroni salad. Added sugars. These are sugars added to foods. They are in foods such as ice cream, candy, soda, fruit drinks, sports drinks, energy drinks, cookies, pastries, jams, and syrups. Cut down on added sugars by sharing sweet treats with a family member or friend. You can also choose fruit for dessert, and drink water or other unsweetened beverages. [employer] last reviewed this educational content on 11/06/201919995830-6573 [employer]. All rights reserved. This information is not intended as a substitute for professional medical care. Always follow your healthcare professional's instructions. WORKER RICE documented in this encounter Progress Notes Betsy Menard RN - 05/08/2020 8:30 AM CSTPatient is 25 year old female here for current . Patient is . 1) Previous delivery methods Initial 2) Patient is not experiencing cramping 3) Patient is not experiencing bleeding. 4) LMP: 03/12/2020 5) Last Pap was n/a Results N/a 6) PPD candidate? no 7) Patient denies history of physical, emotional, or sexual abuse. Patient states she currently feels safe at home. 8) C/O none 9) Would like flu vaccine? no 10) Hx of (+)positive COVID? no Richard Rosen FNP - 05/08/2020 8:30 AM CST Chief complaint: Chief Complaint Patient presents with New OB Visit HPI CC: Initial Visit Bette Dahl is a 25 year old, , /White female. Patient's last menstrual period was 03/12/2020 (exact date). She is 8w1d with an intrauterine . Her Estimated Date of Delivery:12/17/20. She is being seen today for her first obstetrical visit. She has no complaints today. Patient denies any complaints at this time. She denies FM, contractions, LOF and bleeding today. Patient denies current or past physical, sexual or emotional abuse. OB History Para Term AB Living 1 0 0 0 0 0 SAB TAB Ectopic Multiple Live Births 0 0 0 0 0 # Outcome Date GA Lbr Edward/2nd Weight Sex Delivery Anes PTL Lv 1 Current Histories OB History Para Term AB Living 1 0 0 0 0 0 SAB TAB Ectopic Multiple Live Births 0 0 0 0 0 # Outcome Date GA Lbr Edward/2nd Weight Sex Delivery Anes PTL Lv 1 Current No past medical history on file. Family History Problem Relation Age of Onset Diabetes Father Family Status Relation Name Status Mo Alive Fa Alive Sis Alive Bro Alive Sis Alive Sis Alive Sis Alive Bro Alive Bro Alive Bro Alive Past Surgical History: Procedure Laterality Date CHOLECYSTECTOMY 02/2019 Social History Socioeconomic History Marital status: Single Spouse name: Not on file Number of children: Not on file Years of education: Not on file Highest education level: Not on file Occupational History Not on file Social Needs Financial resource strain: Not on file Food insecurity Worry: Not on file Inability: Not on file Transportation needs Medical: Not on file Non-medical: Not on file Tobacco Use Smoking status: Never Smoker Smokeless tobacco: Never Used Substance and Sexual Activity Alcohol use: Not Currently Comment: 2 glasses daily before Drug use: Not Currently Sexual activity: Yes control/protection: None, Other-see comments Comment: previously on OCPs, discontinued approximately 2 years ago Lifestyle Physical activity Days per week: Not on file Minutes per session: Not on file Stress: Not on file Relationships Social connections Talks on phone: Not on file Gets together: Not on file Attends hoahaoism service: Not on file Active member of club or organization: Not on file Attends meetings of clubs or organizations: Not on file Relationship status: Not on file Intimate partner violence Fear of current or ex partner: Not on file Emotionally abused: Not on file Physically abused: Not on file Forced sexual activity: Not on file Other Topics Concern Not on file Social History Narrative Not on file Social History Substance and Sexual Activity Sexual Activity Yes control/protection: None, Other-see comments Comment: previously on OCPs, discontinued approximately 2 years ago Labs Labs are pending. Radiology No new radiology. Allergies Bette has No Known Allergies. Medications Bette currently has no medications in their medication list. Review of Systems Constitutional: Negative for activity change, appetite change, fatigue, unexpected weight change, weight gain and weight loss. HENT: Negative for sore throat. Eyes: Negative for visual disturbance. Respiratory: Negative for cough and shortness of breath. Breasts: Negative for discharge, mass, pain and unequal size. Cardiovascular: Negative for chest pain, palpitations and leg swelling. Gastrointestinal: Negative. Negative for abdominal pain, anal bleeding, blood in stool, constipation, diarrhea, nausea, rectal pain and vomiting. Genitourinary: Negative for bladder incontinence, dysuria, urgency, flank pain, vaginal bleeding, vaginal discharge, genital sores, vaginal pain and pelvic pain. Skin: Negative for color change and rash. Neurological: Negative. Negative for dizziness, syncope and headaches. Psychiatric/Behavioral: Negative for confusion, self-injury and sleep disturbance. The patient is not nervous/anxious. Hematological: Negative for cold intolerance and heat intolerance. Endocrine: Negative for hair loss, cold intolerance, heat intolerance, weight gain and weight loss. BP 127/69 (BP Location: Right arm, Patient Position: Sitting, BP CUFF SIZE: Adult Medium) | Pulse 86 | Temp 37.2 C (98.9 F) (Oral) | Resp 16 | Ht 4' 11" (1.499 m) | Wt 167 lb 9.6 oz (76 kg) |LMP 03/12/2020 (Exact Date) | BMI 33.85 kg/m Pregravid BMI: 33.91 Physical Exam Vitals reviewed. Constitutional: She is oriented to person, place, and time. She appears well- developed, well-nourished and well-groomed. She has no deformities. Neck: No tenderness and no mass. No thyroid nodules and no thyromegaly palpated. Cardiovascular: Regular rate and rhythm. No murmur auscultated. Pulmonary/Chest: Breath sounds clear to auscultation. Normal inspiratory effort. Abdominal: Abdomen is soft. No mass palpated. No tenderness present. There is no guarding. Neuro/Psychiatric: She has a normal mood and affect. She is oriented to person, place, and time. Skin: Skin normal. No lesion and no rash present. Breast: Right breast exhibits no mass, no nipple discharge and no tenderness. Left breast exhibits no mass, no nipple discharge and no tenderness. Normal left breast and normal right breast Rectal: normal rectum External genitalia: Normal external genitalia appropriate for age. Normal hair distribution. No labial lesion. Mirror Polisher present for the exam: LOGAN Brower Vagina:Normal vagina. No lesion inspected. No abnormal vaginal discharge found. No lesions in thevagina. Cervix: Normal cervix. No lesion. No tenderness and no discharge present. Uterus: Uterus is normal size and non-tender. Normal uterus Adnexa: Right adnexa without tenderness or mass. Left adnexa without tenderness or mass. Normal leftadnexa and normal right adnexa Anus/perineum: Normal perineum. PHYSICAL: General Exam: HEENT: Normal Thyroid: Normal Lymph Node: Normal Neurological: Normal Abdomen: Normal Skin: Normal Extremities: Normal Pelvic Exam: Vulva: Normal Vagina: Normal Mirror Polisher present for the exam: LOGAN Brower Cervix: Normal Closed/50/-3 Uterus: 6cm Weeks Adnexa: Normal Spines: Average Sacrum: Concave Subpubic Arch: Normal Assessment/Plan Supervision of high risk in first trimester (primary encounter diagnosis) Primigravida in first trimester Comment: Routine NOB appt Plan: POCT TEST, POCT URINALYSIS W/O SPECIFIC GRAVITY, PAP Smear-Liquid Based, Glucose 1 Hour Post Prandial, CBC WITH DIFF, GC & CHLAMYDIA AMPLIFIED ASSAY, HEPATITIS B SURFACE ANTIGEN, HIV 1/2 AG-AB WITH REFLEX, POCT URINALYSIS W SPECIFIC GRAVITY, WORKUP, BLOOD BANK, RUBELLA SCREEN (LENI) IGG, GALV ONLY - SYPHILIS IGG/IGM, URINE CULTURE, VZV ANTIBODY SCREEN Denies zika virus risk, signs and symptoms such as fever,rash,joint pain, conjunctivitis (red eyes), muscle pain, headaches; outside [place] travel to areas affected by zika, and FOB exposure to zika.Educated on use of mosquito repellent. Covid x12 screening done, screening results are negative. Screening for viral disease Comment: per protocol Plan: SARS-COV-2 IGG Obesity in BMI 33.0-33.9,adult Comment: BMI: 33.85 Plan: Patient encouraged to limit weight gain and advised to eat healthy diet, fruits, vegetables, increased fiber and water intake and protein low in fat. Encouraged exercise for 30 min everyday; begin regimen with caution to prevent injury. Encouraged to decrease BMI to <25. Patient educated onthe effects of chronic health problems of obesity on future pregnancies and/or retirement health. Return to clinic in 4 weeks. Discussed treatment options. Medications as ordered. Reviewed patient instructions and provided printed copy. This visit did not involve counseling and coordination that comprised more than 50% of the visit time. NABEEL Ward 05/08/2020 9:45 AM WORKER RICE documented in this encounter Plan of Treatment Date Type Specialty Care Team Description 06/05/2020 Routine Visit OB Satellites Jhonathan Burton FNP [address] [id number] 15 [phone] Name Type Priority Associated Diagnoses Order S chedule SARS-COV-2 IGG LAB Routine Screening for viral Ordere d: 05/08/2020 disease PAP Smear-Liquid Based LAB Routine Supervision of hig h risk Expected: 05/08/2020, in first Expires: 05/08/2021 trimester Glucose 1 Hour Post LAB Routine Supervision of high r isk Expected: 05/08/2020, Prandial in first Expires: 05/08/2021 trimester CBC WITH DIFF LAB Routine Supervision of high risk Ex pected: 05/08/2020, in first Expires: 05/08/2021 trimester GC & CHLAMYDIA LAB Routine Supervision of high risk E xpected: 05/08/2020, AMPLIFIED ASSAY in first s: 05/08/2021 trimester HEPATITIS B SURFACE LAB Routine Supervision of high r isk Expected: 05/08/2020, ANTIGEN in first Expires: 05/08/2021 trimester HIV 1/2 AG-AB WITH LAB Routine Supervision of high ri sk Expected: 05/08/2020, REFLEX in first Expires: 05/08/2021 trimester POCT URINALYSIS W LAB Routine Supervision of high ris k 20 Occurrences starting SPECIFIC GRAVITY in first 05/08 until trimester 03/04/2021 WORKUP, BLOOD LAB Routine Supervision of hig h risk Expected: 05/08/2020, BANK in first Expires: 05/08/2021 trimester RUBELLA SCREEN (LENI) LAB Routine Supervision of hig h risk Expected: 05/08/2020, IGG in first Expires: 05/08/2021 trimester GALV ONLY - SYPHILIS LAB Routine Supervision of high risk Expected: 05/08/2020, IGG/IGM in first Expires: 05/08/2021 trimester URINE CULTURE LAB Routine Supervision of high risk Ex pected: 05/08/2020, in first Expires: 05/08/2021 trimester VZV ANTIBODY SCREEN LAB Routine Supervision of high r isk Expected: 05/08/2020, in first Expires: 05/08/2021 trimester Health Maintenance Due Date Last Done Comments VARICELLA VACCINES (1 of 2 - 01/21/1996 2-dose childhood series) HPV VACCINES (1 - 2-dose series) 2006 DTaP,Tdap,and Td Vaccines (1 - 2014 Tdap) PAP SMEAR 01/21/2016 INFLUENZA VACCINE (#1) 2020 Depression Screening 05/08/2021 05/08/2020 PNEUMOCOCCAL 0-64 YEARS COMBINED Aged Out No longer eligible based on SERIES patient's age to complete this topic documented as of this encounter Procedures Procedure Name Priority Date/Time Associated Diagnosis Comme nts POCT URINALYSIS W/O Routine 05/08/2020 Supervision of high R esults for this SPECIFIC GRAVITY risk in first procedure are in the trimester results section . POCT TEST Routine 05/08/2020 Supervision of high R esults for this risk in first proc edure are in the trimester results section . documented in this encounter Results POCT URINALYSIS W/O SPECIFIC GRAVITY (05/08/2020) Pathologist Sig nature POCT PH U 5 5 - 8 mg/dl POCT U LEUK EST 2+ Negative - Negative POCT U NIT neg Negative - Negative POCT U PROT 1+ Negative - Negative POCT U GLU neg Negative - Negative POCT U KETONE neg Negative - Negative POCT U BLD trace Negative - Negative Specimen Urine - URINE, CLEAN CATCH POCT TEST (05/08/2020) Pathologist Sig nature POCT PREG Positive On board controls acceptable Yes with C Line POCT PREG LOT # POCT PREG TEST DATE Specimen Urine - URINE, CLEAN CATCH documented in this encounter Visit Diagnoses Diagnosis Supervision of high risk in fi rst trimester - Primary Unspecified high-risk Primigravida in first trimester Screening for viral disease Special screening examination for unspec ified viral disease Obesity in Obesity complicating , childbir th, or the puerperium, unspecified as to episode of care or not applicable BMI 33.0-33.9,adult Body Mass Index 33.0-33.9, adult documented in this encounter Insurance Payer Benefit Plan / Subscriber ID Effective Phone Address T ype Group Dates MEDICAID MEDICAID PENDING 2020-[address] [place] [address] documented as of this encounter
--- OUTSIDE RECORDS SUMMARY | 2020-05-19 08:13 | XMS REPORT | Summary of Care ---
:1995 Author Organization [facility] Address [address] [place] [id number] Care Team Providers Name Role Phone Heather Tamar Lizarraga [facility] Primary Care Provider [phone] Reason for Visit Reason Comments New OB Visit Encounter Details Date Type Department Care Team Description 05/08/2020 Initial [facility]- Richard Burton upervision of high risk in first trimester (Primary Dx); Visit Lalitha R, CONTRACT ANALYST Primigravida in first trimester; [address] [place] [address] Screening for viral disease; [address] [place] Obesity in ; [facility] [place] BMI 33.0-33.9,a [facility] [id number] [phone] Allergies No Known Allergiesdocumented as of this [...] with No / Unsure 05/08/2020 9:04 AM CAMP COUNSELOR someone who was confirmed or suspected to have Coronavirus / COVID-19? documented as of this encounter Last Filed Vital Signs Vital Sign Reading Time Taken Comments Blood Pressure 127/69 05/08/2020 9:05 AM CAMP COUNSELOR Pulse 86 05/08/2020 9:05 AM CAMP COUNSELOR Temperature 37.2 C (98.9 F) 05/08/2020 9:05 AM CAMP COUNSELOR Respiratory Rate 16 05/08/2020 9:05 AM CAMP COUNSELOR Oxygen Saturation - - Inhaled Oxygen Concentration - - Weight 76 kg (167 lb 9.6 oz) 05/08/2020 9:05 AM CAMP COUNSELOR Height 149.9 cm (4' 11") 05/08/2020 9:05 AM CAMP COUNSELOR Body Mass Index 33.85 05/08/2020 9:05 AM CAMP COUNSELOR documented in this encounter Patient Instructions Patient [...] once as part of routine health care. [email or web address] last reviewed this educational content on 03/07/201719990510-1909 [employer]. All rights reserved. This information is not [...] can make now to protect your future. [email or web address] last reviewed this educational content on 05/07/201819993236-[address] [employer]. [address] [place] [address]. All rights reserved. This information is not [...] her child during , childbirth, and . [email or web address] last reviewed this educational content on 11/05/201819992766-5794 [employer]. [address] [place] [address]. All rights reserved. This information is not intended as a substitute for professional medical care. Always follow your healthcare professional's instructions. Patient Education Clinical Breast Exam Many health organizations recommend a yearly clinical breast exam. This exam may be done by a parking lot attendant, family healthcare provider, nurse practitioner, nurse manager diesel, or specially trained nurse. Yearly breast exams [...] Guidelines for having clinical breast exams The [place] [employer]st[employer]nec[employer] recommends that [...] provider about what is best for you. [email or web address] last reviewed this educational content on 09/06/201919997986-5332 [employer]. All rights reserved. This information is not [...] breast self-examination (BSE). These experts include the [place] [employer] and the [place] [employer] of Obstetricians and Gynecologists. Some experts [...] Brandy last reviewed this educational content on 10/06/201919991908-8518 [employer]. All rights reserved. This information is not [...] seafood when possible. Purchase low-sodium, reduced-sodium, or ko-xiab-syhry food products at the store. And don't [...] and drink water or other unsweetened beverages. [email or web address] last reviewed this educational content on 11/06/201919993349-2317 [employer]. All rights reserved. This information is not intended as a substitute for professional medical care. Always follow your healthcare professional's instructions. COUNSELOR documented in this encounter Progress Notes Betsy [...] file Gets together: Not on file Attends alevism service: Not on file Active member of [...] age. Normal hair distribution. No labial lesion. International Recruiter present for the exam: LOGAN Brower Vagina:Normal [...] Normal Pelvic Exam: Vulva: Normal Vagina: Normal International Recruiter present for the exam: LOGAN Brower Cervix: [...] problems of obesity on future pregnancies and/or prison health. Return to clinic in 4 weeks. Discussed treatment options. Medications as ordered. Reviewed patient instructions and provided printed copy. This visit did not involve counseling and coordination that comprised more than 50% of the visit time. NABEEL Ward 05/08/2020 9:45 AM COUNSELOR documented in this encounter Plan of Treatment Date Type Specialty Care Team Description 06/05/2020 Routine Visit OB Satellites Jhonathan Burton FNP [address] [address] 15 [phone] Name Type Priority Associated Diagnoses Date/Ti me SARS-COV-2 IGG LAB Routine Screening for viral 2019 10:15 AM CAMP COUNSELOR disease PAP Smear-Liquid Based LAB Routine Supervision of hig h risk 05/08/2020 10:22 AM CAMP COUNSELOR in first trimester Glucose 1 Hour Post LAB Routine Supervision of high r isk 05/08/2020 10:15 AM CAMP COUNSELOR Prandial in first trimester CBC WITH DIFF LAB Routine Supervision of high risk 10:15 AM CAMP COUNSELOR in first trimester GC & CHLAMYDIA LAB Routine Supervision of high risk 1 07/09/2019 10:22 AM CAMP COUNSELOR AMPLIFIED ASSAY in first trimester HEPATITIS B SURFACE LAB Routine Supervision of high r isk 05/08/2020 10:15 AM CAMP COUNSELOR ANTIGEN in first trimester HIV 1/2 AG-AB WITH LAB Routine Supervision of high ri sk 05/08/2020 10:15 AM CAMP COUNSELOR REFLEX in first trimester RUBELLA SCREEN (LENI) LAB Routine Supervision of hig h risk 05/08/2020 10:15 AM CAMP COUNSELOR IGG in first trimester GALV ONLY - SYPHILIS LAB Routine Supervision of high risk 05/08/2020 10:15 AM CAMP COUNSELOR IGG/IGM in first trimester URINE CULTURE LAB Routine Supervision of high risk 10:22 AM CAMP COUNSELOR in first trimester VZV ANTIBODY SCREEN LAB Routine Supervision of high r isk 05/08/2020 10:15 AM CAMP COUNSELOR in first trimester Name Type Priority Associated Diagnoses Order S chedule PAP Smear-Liquid Based LAB Routine Supervision of [...] T ype Group Dates MEDICAID MEDICAID PENDING 2020-[address] Pending [place] [address] documented as of this encounter
--- OUTSIDE RECORDS SUMMARY | 2020-05-19 08:13 | XMS REPORT | Summary of Care ---
:1995 Author Organization [facility] Address [address] [place] [address] Care Team Providers Name Role Phone Heather Tamar Lizarraga [facility] Primary Care Provider [phone] Reason for Visit Reason Comments New OB Visit Encounter Details Date Type Department Care Team Description 05/08/2020 Initial [facility]- Richard Burton upervision of high risk in first trimester (Primary Dx); Visit Lalitah R, TALENT REP Primigravida in first trimester; [address] [place] [address] Screening for viral disease; [address] [place] Obesity in ; [facility] [place], [place] BMI 33.0-33.9,a [facility] [id number] [phone] Allergies No Known Allergiesdocumented as of this [...] with No / Unsure 05/08/2020 9:04 AM OXIDE FURNACE TENDER someone who was confirmed or suspected to have Coronavirus / COVID-19? documented as of this encounter Last Filed Vital Signs Vital Sign Reading Time Taken Comments Blood Pressure 127/69 05/08/2020 9:05 AM OXIDE FURNACE TENDER Pulse 86 05/08/2020 9:05 AM OXIDE FURNACE TENDER Temperature 37.2 C (98.9 F) 05/08/2020 9:05 AM OXIDE FURNACE TENDER Respiratory Rate 16 05/08/2020 9:05 AM OXIDE FURNACE TENDER Oxygen Saturation - - Inhaled Oxygen Concentration - - Weight 76 kg (167 lb 9.6 oz) 05/08/2020 9:05 AM OXIDE FURNACE TENDER Height 149.9 cm (4' 11") 05/08/2020 9:05 AM OXIDE FURNACE TENDER Body Mass Index 33.85 05/08/2020 9:05 AM OXIDE FURNACE TENDER documented in this encounter Patient Instructions Patient [...] once as part of routine health care. [employer] last reviewed this educational content on 03/07/201719993754-9446 [employer]. All rights reserved. This information is not [...] can make now to protect your future. [employer] last reviewed this educational content on 05/07/201819993498-3524 [employer]. [address] [place] [address]. All rights reserved. This information is not [...] her child during , childbirth, and . [employer] last reviewed this educational content on 11/05/201819990822-8138 [employer]. [address] [place] [address]. All rights reserved. This information is not intended as a substitute for professional medical care. Always follow your healthcare professional's instructions. Patient Education Clinical Breast Exam Many health organizations recommend a yearly clinical breast exam. This exam may be done by a airplane pilot helper, family healthcare provider, nurse practitioner, nurse computer engineering technologist, or specially trained nurse. Yearly breast exams [...] Guidelines for having clinical breast exams The [place] [employer]st[employer]ians and Gynecologists recommends that [...] provider about what is best for you. [employer] last reviewed this educational content on 09/06/201919999939-6801 [employer]. All rights reserved. This information is not [...] breast self-examination (BSE). These experts include the [place] [employer] and the [place] [employer] Obstetricians and Gynecologists. Some experts [...] Brandy last reviewed this educational content on 10/06/201919990830-3554 [employer]. All rights reserved. This information is not [...] seafood when possible. Purchase low-sodium, reduced-sodium, or wj-yscn-jnvgs food products at the store. And don't [...] and drink water or other unsweetened beverages. [employer] last reviewed this educational content on 11/06/201919994724-5939 [employer]. All rights reserved. This information is not intended as a substitute for professional medical care. Always follow your healthcare professional's instructions. E FURNACE TENDER documented in this encounter Progress Notes Betsy [...] file Gets together: Not on file Attends mosque service: Not on file Active member of [...] age. Normal hair distribution. No labial lesion. Consultant Nurse present for the exam: LOGAN Brower Vagina:Normal [...] Normal Pelvic Exam: Vulva: Normal Vagina: Normal Consultant Nurse present for the exam: LOGAN Brower Cervix: [...] problems of obesity on future pregnancies and/or long-term health. Return to clinic in 4 weeks. Discussed treatment options. Medications as ordered. Reviewed patient instructions and provided printed copy. This visit did not involve counseling and coordination that comprised more than 50% of the visit time. NABEEL Ward 05/08/2020 9:45 AM E FURNACE TENDER documented in this encounter Plan of Treatment Date Type Specialty Care Team Description 06/05/2020 Routine Visit OB Satellites Jhonathan Burton FNP [address] [address] [phone] Name Type Priority Associated Diagnoses Date/Ti me SARS-COV-2 IGG LAB Routine Screening for viral 2019 10:15 AM OXIDE FURNACE TENDER disease PAP Smear-Liquid Based LAB Routine Supervision of hig h risk 05/08/2020 10:22 AM OXIDE FURNACE TENDER in first trimester Glucose 1 Hour Post LAB Routine Supervision of high r isk 05/08/2020 10:15 AM OXIDE FURNACE TENDER Prandial in first trimester CBC WITH DIFF LAB Routine Supervision of high risk 10:15 AM OXIDE FURNACE TENDER in first trimester GC & CHLAMYDIA LAB Routine Supervision of high risk 1 07/09/2019 10:22 AM OXIDE FURNACE TENDER AMPLIFIED ASSAY in first trimester HEPATITIS B SURFACE LAB Routine Supervision of high r isk 05/08/2020 10:15 AM OXIDE FURNACE TENDER ANTIGEN in first trimester HIV 1/2 AG-AB WITH LAB Routine Supervision of high ri sk 05/08/2020 10:15 AM OXIDE FURNACE TENDER REFLEX in first trimester RUBELLA SCREEN (LENI) LAB Routine Supervision of hig h risk 05/08/2020 10:15 AM OXIDE FURNACE TENDER IGG in first trimester GALV ONLY - SYPHILIS LAB Routine Supervision of high risk 05/08/2020 10:15 AM OXIDE FURNACE TENDER IGG/IGM in first trimester URINE CULTURE LAB Routine Supervision of high risk 10:22 AM OXIDE FURNACE TENDER in first trimester VZV ANTIBODY SCREEN LAB Routine Supervision of high r isk 05/08/2020 10:15 AM OXIDE FURNACE TENDER in first trimester Name Type Priority Associated [...] T ype Group Dates MEDICAID MEDICAID PENDING 2020-[address] Pending [place] [address] documented as of this encounter
[2020-05-19 09:06] LABS: Absolute Lymphocytes (CBC) 2.1 K/uL (0.7-4.9); Basophils % 0.7 % (0-1.3); RBC Red Blood Cell Count 4.39 M/uL (3.86-4.86)
[2020-05-19] MEDS ORDERED: NA CHLORIDE 0.9% 1,000 ML ONE (09:10)
[2020-05-19 09:20] LABS: Urine Blood 2+ (NEG); Urine Glucose NEGATIVE (NEG); Urine Protein NEGATIVE (NEG); Urine Specific Gravity 1.025 (1.005-1.030)
[2020-05-19 09:46] LABS: ALT/SGPT 21 U/L (12-78); AST/SGOT 11 U/L (15-37); Albumin 3.6 g/dL (3.4-5.0); Alkaline Phosphatase 57 U/L (45-117); BUN Blood Urea Nitrogen 8 mg/dL (7-18); Bicarbonate 26 mmol/L (21-32); Bilirubin Total 0.3 mg/dL (0.2-1.0); Glucose Level 90 mg/dL (74-106); HCG, Quantitative 6360 mIU/mL (1-3); Potassium 3.7 mmol/L (3.5-5.1); Protein, Total 7.1 g/dL (6.4-8.2); Sodium Level 139 mmol/L (136-145)
--- NOTE | 2020-05-19 10:37 | EDPHYS ---
Physician Documentation [facility] Name: Bette Dahl Age: 25 yrs Sex: Female : 1995 Arrival Date: 05/19/2020 Time: 08:13 Bed 6 Private MD: ED Physician Esau Child HPI: 05/19 08:41 This 25 yrs old Female presents to ER via Ambulatory with complaints of angel luis Vaginal Bleeding, + Preg <12wks. 08:41 The patient presents to the emergency department with vaginal bleeding, that is light. angel luis The estimated gestational age is 6 weeks. course: care:. 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 - Social history:: Smoking status: Patient denies any tobacco usage or history of. - Family history:: not pertinent. ROS: 08:41 Constitutional: Negative for fever, chills, and weight loss, Eyes: Negative for injury, angel luis pain, redness, and discharge, ENT: Negative for injury, pain, and discharge, Neck: Negative for injury, pain, and swelling, Cardiovascular: Negative for chest pain, palpitations, and edema, Respiratory: Negative for shortness of breath, cough, wheezing, and pleuritic chest pain, Abdomen/GI: Negative for abdominal pain, nausea, vomiting, diarrhea, and constipation, Back: Negative for injury and pain, MS/Extremity: Negative for injury and deformity, Skin: Negative for injury, rash, and discoloration, Neuro: Negative for headache, weakness, numbness, tingling, and seizure, Psych: Negative for depression, anxiety, suicide ideation, homicidal ideation, and hallucinations, Allergy/Immunology: Negative for hives, rash, and allergies, Endocrine: Negative for neck swelling, polydipsia, polyuria, polyphagia, and marked weight changes, Hematologic/Lymphatic: Negative for swollen nodes, abnormal bleeding, and unusual bruising. 08:41 : Positive for vaginal bleeding. Exam: 08:41 Constitutional: This is a well developed, well nourished patient who is awake, alert, angel luis and in no acute distress. Head/Face: Normocephalic, atraumatic. Eyes: Pupils equal round and reactive to light, extra-ocular motions intact. Lids and lashes normal. Conjunctiva and sclera are non-icteric and not injected. Cornea within normal limits. Periorbital areas with no swelling, redness, or edema. ENT: Nares patent. No nasal discharge, no septal abnormalities noted. Tympanic membranes are normal and external auditory canals are clear. Oropharynx with no redness, swelling, or masses, exudates, or evidence of obstruction, uvula midline. Mucous membranes moist. Neck: Trachea midline, no thyromegaly or masses palpated, and no cervical lymphadenopathy. Supple, full range of motion without nuchal rigidity, or vertebral point tenderness. No Meningismus. Chest/axilla: Normal chest wall appearance and motion. Nontender with no deformity. No lesions are appreciated. Cardiovascular: Regular rate and rhythm with a normal S1 and S2. No gallops, murmurs, or rubs. Normal PMI, no JVD. No pulse deficits. Respiratory: Lungs have equal breath sounds bilaterally, clear to auscultation and percussion. No rales, rhonchi or wheezes noted. No increased work of breathing, no retractions or nasal flaring. Abdomen/GI: Soft, non-tender, with normal bowel sounds. No distension or tympany. No guarding or rebound. No evidence of tenderness throughout. Back: No spinal tenderness. No costovertebral tenderness. Full range of motion. Female : Normal external genitalia. Skin: Warm, dry with normal turgor. Normal color with no rashes, no lesions, and no evidence of cellulitis. MS/ Extremity: Pulses equal, no cyanosis. Neurovascular intact. Full, normal range of motion. Neuro: Awake and alert, GCS 15, oriented to person, place, time, and situation. Cranial nerves II-XII grossly intact. Motor strength 5/5 in all extremities. Sensory grossly intact. Cerebellar exam normal. Normal gait. 09:44 ECG was reviewed by the Attending Physician. [facility] Vital Signs: 08:40 BP 121 / 84; Pulse 89; Resp 17; Temp 98.2; Pulse Ox 98% ; Weight 75.75 kg; Height 4 ft. jl7 11 in. (149.86 cm); Pain 3; 08:40 Body Mass Index 33.73 (75.75 kg, 149.86 cm) 7 MDM: 08:23 Patient medically screened. angel luis 08:46 Differential diagnosis: Data reviewed: vital signs, nurses notes. 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 Counseling: I had a detailed discussion with the patient and/or guardian regarding: the historical points, exam findings, and any diagnostic results supporting the discharge/admit diagnosis, lab results. 05/19 08:20 Order name: CBC with Diff; Complete Time: 10:10 [facility] 05/19 08:20 Order name: Comprehensive Metabolic Panel; Complete Time: 10:10 [facility] 05/19 08:20 Order name: Quantitative Hcg; Complete Time: 10:10 [facility] 05/19 08:20 Order name: Abo/rh Typing; Complete Time: 10:10 [facility] 05/19 08:38 Order name: Urine Dipstick--Ancillary (enter results); Complete Time: 10:10 [facility] 05/19 08:39 Order name: Urine --Ancillary (enter results); Complete Time: 10:10 [facility] 05/19 08:20 Order name: Urine Test (obtain specimen); Complete Time: 08:35 [facility] 05/19 08:20 Order name: IV Saline Lock; Complete Time: 08:58 [facility] 05/19 08:20 Order name: Labs collected and sent; Complete Time: 08:58 [facility] 05/19 08:20 Order name: NPO; Complete Time: 08:58 [facility] 05/19 08:20 Order name: Urine Dipstick-Ancillary (obtain specimen); Complete Time: 08:35 [facility] 05/19 08:20 Order name: US Transvaginal Ob [facility] EC:44 Rate is 70 beats/min. Rhythm is regular. QRS [place] is Normal. MA interval is normal. QRS angel luis interval is normal. QT interval is normal. No Q waves. T waves are Normal. No ST changes noted. Interpreted by me. Reviewed by me. Administered Medications: 08:58 Drug: NS 0.9% 1000 ml Route: IV; Rate: 1 bolus; Site: right antecubital; [facility] 11:05 Follow up: IV Status: Completed infusion iw Disposition: 05/19/20 10:36 Discharged to Home. Impression: Threatened , related conditions, unspecified, first trimester. - Condition is Stable. - Discharge Instructions: Threatened Miscarriage, Vaginal Bleeding During , First Trimester, First Trimester of , [id number], First Trimester of , Threatened Miscarriage, [id number], Pelvic Rest. - Prescriptions for Vitamin 27- 0.8 mg Oral Tablet - take 1 tablet by ORAL route once daily; 30 tablet. - Medication Reconciliation Form, Thank You Letter, Antibiotic Education, Prescription Opioid Use form. - Follow up: Private Physician; When: 2 - 3 days; Reason: Recheck today's complaints, Continuance of care, Re-evaluation by your physician. Follow up: Geovanni Granger; When: 2 - 3 days; Reason: Recheck today's complaints, Re-evaluation by your physician. - Problem is new. - Symptoms have improved. Signatures: Dispatcher [employer] EDMS Esau Child MD MD cha Williams, Irene, RN RN Long Jenkins RN RN jl7 Corrections: (The following items were deleted from the chart) 11:05 10:36 05/19/2020 10:36 Discharged to Home. Impression: Threatened ; iw related conditions, unspecified, first trimester. Condition is Stable. Discharge Instructions: Threatened Miscarriage, Vaginal Bleeding During , First Trimester, First Trimester of , [id number], First Trimester of , Threatened Miscarriage, [id number]-ff-Xott, Pelvic Rest. Prescriptions for Vitamin 27-0.8 mg Oral Tablet - take 1 tablet by ORAL route once daily; 30 tablet. and Forms are Medication Reconciliation Form, Thank You Letter, Antibiotic Education, Prescription Opioid Use. Follow up: Private Physician; When: 2 - 3 days; Reason: Recheck today's complaints, Continuance of care, Re-evaluation by your physician. Follow up: Geovanni Granger; When: 2 - 3 days; Reason: Recheck today's complaints, Re-evaluation by your physician. Problem is new. Symptoms have improved. angel luis
--- NOTE | 2020-05-19 10:37 | ER ---
Nurse's Notes [facility] Name: Bette Dahl Age: 25 yrs Sex: Female : 1995 Arrival Date: 05/19/2020 Time: 08:13 Bed 6 Private MD: Diagnosis: Threatened ; related conditions, unspecified, first trimester Presentation: 05/19 08:40 Chief complaint: Patient states: Wiped after voiding and there was red blood on the jl7 toilet paper, mild cramping. Coronavirus screen: Client denies travel out of the [place] in the last 14 days. At this time, the client does not indicate any symptoms associated with coronavirus-19. Ebola Screen: No symptoms or risks identified at this time. Initial Sepsis Screen: Does the patient meet any 2 criteria? No. Patient's initial sepsis screen is negative. Does the patient have a suspected source of infection? No. Patient's initial sepsis screen is negative. Risk Assessment: Do you want to hurt yourself or someone else? Patient reports no desire to harm self or others. Onset of symptoms was May 19, 2020. Care prior to arrival: None. 08:40 Method Of Arrival: Ambulatory jl7 08:40 Acuity: SHAKIRA 3 jl7 Triage Assessment: 08:42 General: Appears in no apparent distress. uncomfortable, Behavior is calm, cooperative, jl7 appropriate for age. Pain: Complains of pain in right lower quadrant and left lower quadrant Pain currently is 3 out of 10 on a pain scale. Quality of pain is described as crampy. Neuro: Level of Consciousness is awake, alert, obeys commands, Oriented to person, place, time, situation. Cardiovascular: Patient's skin is warm and dry. Respiratory: Airway is patent Respiratory effort is even, unlabored, Respiratory pattern is regular, symmetrical. : Reports vaginal bleeding that is spotty. Derm: Skin is pink, warm \T\ dry. RANGE AID: 08:41 1, Full Term 0, Premature 0, 0, Living 1 angel luis 08:42 LMP 02/2020 jl7 Historical: - Allergies: 08:42 No Known Allergies; jl7 - Home Meds: 08:42 None [Active]; jl7 - PMHx: 08:42 None; jl7 - PSHx: 08:42 Cholecystectomy; jl7 - Immunization history:: Adult Immunizations unknown. - Social history:: Smoking status: Patient denies any tobacco usage or history of. - Family history:: not pertinent. Screenin:57 Abuse screen: Denies threats or abuse. Denies injuries from another. Nutritional jl7 screening: No deficits noted. Tuberculosis screening: No symptoms or risk factors identified. Fall Risk IV access (20 points). Total Cervantes Fall Scale indicates No Risk (0-24 pts). Assessment: 08:57 Obstetrical Assessment: Patient reports abdominal cramping. General: See triage jl7 assessment. Vital Signs: 08:40 BP 121 / 84; Pulse 89; Resp 17; Temp 98.2; Pulse Ox 98% ; Weight 75.75 kg; Height 4 ft. jl7 11 in. (149.86 cm); Pain 3/10; 08:40 Body Mass Index 33.73 (75.75 kg, 149.86 cm) jl7 Vitals: 11:04 Heart Tones N/A. iw ED Course: 08:13 Patient arrived in ED. ag5 08:17 Esau Child MD is Attending Physician. angel luis 08:40 Long Zarate RN is Primary Nurse. jl7 08:42 Triage completed. jl7 08:42 Arm band placed on right wrist. jl7 08:57 Patient has correct armband on for positive identification. Placed in gown. Bed in low jl7 position. Call light in reach. Side rails up X 1. Pulse ox on. NIBP on. 08:57 Initial lab(s) drawn, by or, sent to lab. Urine collected: clean catch specimen, clear. jl7 Inserted saline lock: 20 gauge in right antecubital area, using aseptic technique. Blood collected. 10:36 Geovnani Granger MD is Referral Physician. angel luis 10:36 Transvaginal Ob In Process Unspecified. EDMS 11:04 Ultrasound completed. Patient tolerated well. Notified ED Physician jack. sg3 11:04 No provider procedures requiring assistance completed. IV discontinued, intact, iw bleeding controlled, No redness/swelling at site. Pressure dressing applied. Administered Medications: 08:58 Drug: NS 0.9% 1000 ml Route: IV; Rate: 1 bolus; Site: right antecubital; jl7 11:05 Follow up: IV Status: Completed infusion iw Outcome: 10:36 Discharge ordered by . angel luis 11:04 Discharged to home ambulatory. iw 11:04 Condition: good 11:04 Discharge instructions given to patient, Instructed on discharge instructions, follow up and referral plans. medication usage, Demonstrated understanding of instructions, follow-up care, medications, Prescriptions given X 1. 11:05 Patient left the ED. iw Signatures: Dispatcher [employer] EDEsau Duke MD MD cha Williams, Irene RN Long Sanchez RN RN [facility] Shaina Domingo [facility] Fred Mandel banner
--- NOTE | 2020-05-19 11:58 | RAD REPORT ---
EXAM DESCRIPTION: US - Transvaginal OB - 05/19/2020 10:36 am CLINICAL HISTORY: ABD CRAMPING, COMPARISON: Transvaginal OB dated 04/25/2020 FINDINGS: Large fluid-filled sac is present in the fundal portion of the endometrial cavity. This pr esumed gestational sac is somewhat irregular in shape resulting in variability in measuring technique s. If this does represent a gestational sac, the age is approximately 8 weeks. Within this presumed g estational sac there is no yolk sac or pole. No mass, hematoma, molar or other abnorm ality within the endometrial cavity. Uterine size is normal, retroflexed and possibly retroverted in configuration. No myometrial masses a re identifiable. Both ovaries are identified and show no suspicious solid or cystic masses. No adnexal abnormality. No blood or fluid in the cul de sac. IMPRESSION: Approximately 8 week irregularly-shaped gestational sac in the fundus not substantially different from April 25 study. No pole or yolk sac identifiable.
[2020-05-22 23:11] VITALS: BP 121/84; TEMP 98.2; O2SAT 98
== END 2020-05-19 11:05 | disposition home or self-care (01) ==
LOC: ER 08:09
DX: O20.0 Threatened abortion (principal); Z3A.01 Less than 8 weeks gestation of pregnancy
CPT/HCPCS: 36415; 76817; 80053; 81003; 81025; 84702; 85025; 86900; 86901; 96360; 96361; 99284; J7030

== ENCOUNTER 2021-03-25 09:39 | Emergency (ER) | payer OTHER ==
[2021-03-25 10:37] LABS: Absolute Lymphocytes (CBC) 1.8 K/uL (0.7-4.9); Basophils % 0.5 % (0-1.3); Hematocrit 35.8 % (36.0-45.0); Lymphocytes % 23.2 % (15.3-44.8); MPV 8.8 fL (7.6-11.3); RBC Red Blood Cell Count 4.08 M/uL (3.86-4.86)
[2021-03-25] MEDS ORDERED: NA CHLORIDE 0.9% 1,000 ML ONE (10:51)
[2021-03-25] MEDS ORDERED: MECLIZINE HCL 12.5 MG TAB ONE (10:51)
[2021-03-25] MEDS ORDERED: ONDANSETRON 4 MG/2 ML VIAL ONE (10:51)
[2021-03-25 11:14] LABS: ALT/SGPT 66 U/L (12-78); AST/SGOT 32 U/L (15-37); Albumin 3.4 g/dL (3.4-5.0); Alkaline Phosphatase 59 U/L (45-117); BUN Blood Urea Nitrogen 3 mg/dL (7-18); Bicarbonate 24 mmol/L (21-32); Bilirubin Direct < 0.1 mg/dL (0-0.2); Bilirubin Total 0.3 mg/dL (0.2-1.0); Glucose Level 96 mg/dL (74-106); Lipase 68 U/L (73-393); Potassium 3.9 mmol/L (3.5-5.1); Protein, Total 7.1 g/dL (6.4-8.2); Sodium Level 141 mmol/L (136-145); Troponin (Emerg Dept Use Only) < 0.02 ng/mL (0.0-0.045)
--- NOTE | 2021-03-25 13:06 | EDPHYS ---
Physician Documentation [facility] Name: Bette Dahl Age: 26 yrs Sex: Female : 1995 Arrival Date: 03/25/2021 Time: 09:42 Bed 14 Private MD: ED Physician Jena Dsos HPI: 03/25 09:54 This 26 yrs old Female presents to ER via Ambulatory with complaints of 15 wks jmm , Dizziness, Headache. 09:54 The patient presents with dizziness. Onset: The symptoms/episode began/occurred jmm acutely, last night. Modifying factors: The symptoms are alleviated by nothing, the symptoms are aggravated by movement of head. Associated signs and symptoms: Pertinent positives: headache. This is a 26-year-old female currently 15 weeks the presents emerge department with complaints of dizziness beginning last night when she went from a sitting position to a standing position. Patient also states having multiple episodes of vomiting with some lower back pain and right-sided pelvic pain. Patient denies vaginal bleeding denies dysuria denies diarrhea.. Historical: - Allergies: 09:47 No Known Allergies; ll1 - Social history:: Smoking status: Patient denies any tobacco usage or history of. ROS: 09:54 Constitutional: Negative for fever, chills, and weight loss, Cardiovascular: Negative jmm for chest pain, palpitations, and edema, Respiratory: Negative for shortness of breath, cough, wheezing, and pleuritic chest pain. 09:54 Abdomen/GI: Positive for vomiting. 09:54 Neuro: Positive for dizziness. 09:54 All other systems are negative. Exam: 10:44 Constitutional: This is a well developed, well nourished patient who is awake, alert, jmm and in no acute distress. Head/Face: atraumatic. 10:44 Neck: Trachea midline, Supple Chest/axilla: Normal chest wall appearance and motion. Cardiovascular: Regular rate and rhythm. No edema appreciated Respiratory: Normal respirations, no respiratory distress appreciated 10:44 Back: Normal ROM Skin: General appearance color normal MS/ Extremity: Moves all extremities, no obvious deformities appreciated, no edema noted to the lower extremities 10:44 Eyes: Extraocular movements: intact throughout, Nystagmus: nystagmus with fast component noted, bilaterally. 10:44 Abdomen/GI: Inspection: abdomen appears normal, Bowel sounds: normal, Palpation: soft, mild abdominal tenderness, in the suprapubic area. 10:44 Neuro: Orientation: is normal, Mentation: is normal, Memory: is normal. 10:44 Psych: Behavior/mood is pleasant, cooperative. Vital Signs: 09:54 BP 122 / 76; Pulse 86; Resp 18; Temp 98.9; Pulse Ox 99% ; Weight 88 kg; Height 4 ft. 11 ll1 in. (149.86 cm); Pain 8/10; 13:05 BP 117 / 66; Pulse 71; Resp 15; Pulse Ox 99% ; Pain 0/10; tc5 09:54 Body Mass Index 39.18 (88.00 kg, 149.86 cm) ll1 MDM: 09:54 Patient medically screened. [facility] 13:03 Data reviewed: vital signs, nurses notes. Counseling: I had a detailed discussion with alessandro the patient and/or guardian regarding: the historical points, exam findings, and any diagnostic results supporting the discharge/admit diagnosis, lab results, radiology results, the need for outpatient follow up, the need to transfer to another facility. ED course: I discussed the patient with Dr. Felipe whom accepted the patient for evaluation. . 03/25 10:13 Order name: Basic Metabolic Panel [facility] 03/25 10:13 Order name: CBC with Diff; Complete Time: 10:39 [facility] 03/25 10:13 Order name: Hepatic Function [facility] 03/25 10:13 Order name: Lipase; Complete Time: 11:23 [facility] 03/25 10:14 Order name: Basic Metabolic Panel; Complete Time: 11:23 [facility] 03/25 10:14 Order name: Liver (Hepatic) Function; Complete Time: 11:23 [facility] 03/25 10:14 Order name: Troponin (emerg Dept Use Only) [facility] 03/25 10:15 Order name: Troponin (Emerg Dept Use Only); Complete Time: 11:23 [facility] 03/25 10:15 Order name: CT Head Brain wo Cont; Complete Time: 13:17 [facility] 03/25 10:17 Order name: Urine --Ancillary (enter results); Complete Time: 10:27 bd 03/25 11:55 Order name: HCG-Quantitative; Complete Time: 13:26 [facility] 03/25 13:03 Order name: SARS-COV-2 RT PCR; Complete Time: 14:07 EDMS 03/25 10:13 Order name: IV Saline Lock; Complete Time: 10:29 [facility] 03/25 10:13 Order name: Labs collected and sent; Complete Time: 10:29 [facility] 03/25 10:14 Order name: Heart Tones [facility] 03/25 10:14 Order name: EKG - Nurse/Tech; Complete Time: 10:28 [facility] 03/25 10:15 Order name: CT Head Angio; Complete Time: 13:17 [facility] 03/25 10:15 Order name: CT Neck Angio; Complete Time: 13:09 [facility] 03/25 10:32 Order name: US 1st Trimest Single 1st Fetus; Complete Time: 13:26 [facility] 03/25 11:10 Order name: TRANSVAG OB CERVIX ASSESSMENT; Complete Time: 13:27 EDMS Administered Medications: 10:30 Drug: NS 0.9% 1000 ml Route: IV; Rate: 1 bolus; Site: left antecubital; tc5 13:06 Follow up: IV Status: Completed infusion; IV Intake: 1000ml tc5 10:30 Drug: Zofran (Ondansetron) 4 mg Route: IVP; Site: left antecubital; tc5 13:06 Follow up: Response: No adverse reaction tc5 10:30 Drug: Meclizine 25 mg Route: PO; tc5 13:05 Follow up: Response: No adverse reaction tc5 Disposition: 18:31 Co-signature as Attending Physician, Jena Doss MD PA/RESEARCH SUPPORT SPECIALIST's history reviewed, ma2 patient interviewed, and examined. I agree with assessment and care plan and confirm the diagnosis (es) above. Disposition Summary: 03/25/21 13:05 Transfer Ordered Transfer Location: [facility] Reason: Higher level of care jmm Condition: Stable jmm Problem: new jmm Symptoms: have improved jmm Accepting Physician: Dr. Felipe(03/25/21 14:59) tc5 Diagnosis - Pelvic Pain jmm - Urinary Tract Infection jmm - Cervical Tunneling jmm - Dizziness jmm - Vomiting jmm Forms: - Medication Reconciliation Form jmm - SBAR form jmm Signatures: Dispatcher [employer] EDMS Addi Monaco PA PA jmm Alzahri, Mohammad, MD MD ma2 Jenna Francisco RN RN ll1 Nano Nichole RN RN tc5 Corrections: (The following items were deleted from the chart) 10: 09:53 URINE --ANCILLARY+UC.LAB.BRZ ordered. EDMS EDMS 10:19 10:16 URINE --ANCILLARY+UC.LAB.BRZ reviewed. deuin EDMS 13:03 12:05 CORONAVIRUS+MR.LAB.BRZ ordered. EDMS EDMS 14:59 13:05 Dr. Felipe [facility] tc5
--- NOTE | 2021-03-25 13:06 | ER ---
Nurse's Notes [facility] Name: Bette Dahl Age: 26 yrs Sex: Female : 1995 Arrival Date: 03/25/2021 Time: 09:42 Bed 14 Private MD: Diagnosis: Pelvic Pain;Urinary Tract Infection;Cervical Tunneling;Dizziness;Vomiting Presentation: 03/25 09:47 Ebola Screen: Patient denies travel to an Ebola-affected area in the 21 days before ll1 illness onset. Risk Assessment: Do you want to hurt yourself or someone else? Patient reports no desire to harm self or others. 09:47 Method Of Arrival: Ambulatory ll1 09:47 Acuity: SHAKIRA 3 ll1 09:54 Chief complaint: Patient states: 15 weeks , dizziness and CADENA since last night. ll1 + N/V. No fever. Coronavirus screen: Vaccine status: Patient reports being unvaccinated. Client denies travel out of the [place] in the last 14 days. At this time, the client does not indicate any symptoms associated with coronavirus-19. Initial Sepsis Screen: Does the patient meet any 2 criteria? No. Patient's initial sepsis screen is negative. Does the patient have a suspected source of infection? Yes: Other: CADENA. Onset of symptoms was March 24, 2021. Historical: - Allergies: 09:47 No Known Allergies; ll1 - Social history:: Smoking status: Patient denies any tobacco usage or history of. Screenin:48 Abuse screen: Denies threats or abuse. Denies injuries from another. Nutritional tc5 screening: No deficits noted. Tuberculosis screening: No symptoms or risk factors identified. Fall Risk Secondary diagnosis (15 points) dizziness. Assessment: 10:47 Reassessment: Patient appears in no apparent distress at this time. General: 15 tc5 weeks , dizziness that started yesterday.. Pain: Denies pain. Neuro: Reports dizziness, since yesterday. Vital Signs: 09:54 BP 122 / 76; Pulse 86; Resp 18; Temp 98.9; Pulse Ox 99% ; Weight 88 kg; Height 4 ft. 11 ll1 in. (149.86 cm); Pain 8/10; 13:05 BP 117 / 66; Pulse 71; Resp 15; Pulse Ox 99% ; Pain 0/10; tc5 09:54 Body Mass Index 39.18 (88.00 kg, 149.86 cm) 1 ED Course: 09:42 Patient arrived in ED. mr 09:44 Addi Monaco PA is PHCP. jmm 09:44 Jena Doss MD is Attending Physician. [facility] 09:47 Arm band placed on Patient placed in an exam room, on a stretcher. 1 09:48 Triage completed. 1 10:16 Nano Nichole, RN is Primary Nurse. tc5 10:29 Troponin (emerg Dept Use Only) Sent. mh5 10:29 Troponin (Emerg Dept Use Only) Sent. mh5 10:29 Liver (Hepatic) Function Sent. mh5 10:29 Basic Metabolic Panel Sent. mh5 10:29 CBC with Diff Sent. mh5 10:29 Hepatic Function Sent. mh5 10:29 Basic Metabolic Panel Sent. mh5 10:30 Lipase Sent. mh5 10:30 Initial lab(s) drawn, by ut, sent to lab. Urine collected: clean catch specimen, clear, [facility] EKG done, by ED staff, reviewed by Addi FORD. Inserted saline lock: 20 gauge in left antecubital area, using aseptic technique. Blood collected. 10:31 Patient has correct armband on for positive identification. Placed in gown. Bed in low mh5 position. Call light in reach. Side rails up X 1. Adult w/ patient. Warm blanket given. Pulse ox on. NIBP on. 11:29 US 1st Trimest Single 1st Fetus In Process Unspecified. EDMS 11:29 TRANSVAG OB CERVIX ASSESSMENT In Process Unspecified. EDMS 11:36 CT Head Brain wo Cont In Process Unspecified. EDMS 11:37 CT Head Angio In Process Unspecified. EDMS 11:37 CT Neck Angio In Process Unspecified. EDMS 13:02 initiated transfer to [facility]. bd 13:03 pt accepted in transfer to [facility] L\T\D by dr Felipe, admin approval given by colten Sparrow. Administered Medications: 10:30 Drug: NS 0.9% 1000 ml Route: IV; Rate: 1 bolus; Site: left antecubital; tc5 13:06 Follow up: IV Status: Completed infusion; IV Intake: 1000ml tc5 10:30 Drug: Zofran (Ondansetron) 4 mg Route: IVP; Site: left antecubital; tc5 13:06 Follow up: Response: No adverse reaction tc5 10:30 Drug: Meclizine 25 mg Route: PO; tc5 13:05 Follow up: Response: No adverse reaction tc5 Intake: 13:06 IV: 1000ml; Total: 1000ml. tc5 Outcome: 13:05 ER care complete, transfer ordered by MD. denny 14:59 Patient left the ED. tc5 Signatures: Dispatcher [employer] EDMS Sravanthi Dave Joel, PA PA jmm Deon, Lisset Lopez, Taylor 5 Jenna Francisco RN RN 1 Nano Nichole RN RN tc5 Corrections: (The following items were deleted from the chart) 10:19 09:54 URINE --[email or web address] drawn and sent. [facility] RONAK
--- NOTE | 2021-03-25 13:08 | RAD REPORT ---
EXAM DESCRIPTION: CT - Neck Angio - 03/25/2021 12:55 pm CLINICAL HISTORY: dizziness TECHNIQUE: During dynamic enhancement using nonionic IV contrast, axial 2 mm thick images of the nec k were obtained. Sagittal and axial reconstruction images were generated using MIP technique and revi ewed. All CT scans are performed using dose optimization technique as appropriate and may include automated exposure control or mA/KV adjustment according to patient size. Wraparound abdominal and pelvic shielding was utilized. COMPARISON: CT head same date, CT angio head same date FINDINGS: No aneurysm or vascular malformation identified. No carotid or vertebral dissection. No aortic arch or great vessel origin abnormality seen. Vertebral artery origins unremarkable as well . No dissection. No stenosis, vasculitis or other significant carotid artery finding. No focal abnorm ality of either vertebral artery. Basilar artery is normal. IMPRESSION: Negative CT angio neck examination.
--- NOTE | 2021-03-25 13:14 | RAD REPORT ---
EXAM DESCRIPTION: CT - Head Brain Wo Cont - 03/25/2021 12:55 pm CLINICAL HISTORY: DIZZINESS, COMPARISON: Head angio dated 03/25/2021 TECHNIQUE: Axial 5 mm thick images of the head were obtained without IV contrast. All CT scans are performed using dose optimization technique as appropriate and may include automated exposure control or mA/KV adjustment according to patient size. Wraparound abdominal and pelvic shielding was utilized. FINDINGS: No intracranial hemorrhage, mass, edema or shift of mid-line structures. No acute infarcti on changes seen. No abnormal extra-axial fluid collections. Ventricles are normal. Mastoid air cells and visualized portions of the paranasal sinuses are clear. No acute bony findings. IMPRESSION: Negative non-contrast CT head examination.
--- NOTE | 2021-03-25 13:14 | RAD REPORT ---
EXAM DESCRIPTION: CT - Head angio - 03/25/2021 12:55 pm CLINICAL HISTORY: DIZZINESS, headache, TECHNIQUE: During dynamic enhancement using nonionic IV contrast, axial 1 millimeter thick images of the head were obtained. Sagittal and axial reconstruction images were generated using MIP technique and reviewed. All CT scans are performed using dose optimization technique as appropriate and may include automated exposure control or mA/KV adjustment according to patient size. Wraparound abdominal and pelvic shielding was utilized. COMPARISON: CT head same date FINDINGS: No aneurysm or vascular malformation identified. No dissection findings seen. Major venous sinuses are patent. No stenosis, named branch occlusion, vasculitis or other significant vascular finding identifiable. IMPRESSION: Negative CT angio head examination.
--- NOTE | 2021-03-25 13:25 | RAD REPORT ---
EXAM DESCRIPTION: US - 1St Trimest Single 1St Fetus - 03/25/2021 12:55 pm CLINICAL HISTORY: right lower abdominal pain, COMPARISON: No comparisons FINDINGS: Single intrauterine gestation is identifiable. Abdominal circumference and length me asurements were obtained. Calculated age is 15 weeks 1 day. Calculated JOES is 09/15/2021. Heart rate is 153 BPM. No gross anatomic abnormality identifiable at 15 weeks age. Amniotic fluid volume is norm al. Posterior grade 0 placenta seen. Placenta is low lying. The cervix and low-lying placenta are further detailed in separate endovaginal report. IMPRESSION: Single 15 week 1 day IUP with calculated JOSE of 09/15/2021. Heart rate is normal at 151 BPM. No gross abnormality seen. Amniotic fluid volume is normal. Posterior placenta, low-lying margin and cervical findings are separately detailed.
--- NOTE | 2021-03-25 13:26 | RAD REPORT ---
EXAM DESCRIPTION: US - TRANSVAG OB CERVIX ASSESSMENT - 03/25/2021 12:55 pm CLINICAL HISTORY: , pelvic pain COMPARISON: Transabdominal OB ultrasound same date TECHNIQUE: Endovaginal sonography was performed. FINDINGS: Transabdominal sonography demonstrated a 15 week single IUP with normal heart rate and no gross anatomic abnormality. The amniotic fluid volume was normal. Cervical canal is approximately 3.8 cm in length. Posterior grade 0 placenta is low lying with the in ferior margin approximately 10 mm from the internal os. Internal os is not well defined on this study. Conical shaped to the lower uterine segment cervix ricky ction was seen on multiple sequences. Findings are not definitive but are concerning for funneling. T he extent of funneling is estimated at 16 mm into the proximal cervix. Due to technical malfunctions at the time of the examination, a final report could not be generated a t that time. Findings were telephoned to the referring clinician at the time of the examination. IMPRESSION: As detailed above, findings are questionable but not definitive for funneling into the p roximal cervix. Cervical findings are of sufficient concern to warrant higher level of care for re-evaluation and any possible ongoing treatment. Posterior placenta is low lying near the internal os.
[2021-03-25 15:03] VITALS: TEMP 98.9; O2SAT 99
[2021-03-25 15:05] VITALS: BP 117/66
== END 2021-03-25 14:59 | disposition short-term general hospital (02) ==
LOC: ER 09:39
DX: O23.42 Unspecified infection of urinary tract in pregnancy, second trimester (principal); N39.0 Urinary tract infection, site not specified; Z3A.15 15 weeks gestation of pregnancy; Z20.822 Contact with and (suspected) exposure to COVID-19
CPT/HCPCS: 93005; 85025; 80048; 36415; 81025; 80076; 84702; 84484; 83690; 70450; 70496; 70498; 76801; 76817; U0003; Q9967; J7030; J2405

== ENCOUNTER 2021-09-07 22:08 | Emergency (ER) | payer OTHER ==
--- OUTSIDE RECORDS SUMMARY | 2021-09-07 22:13 | XMS REPORT | Continuity of Care Document ---
:1995 Author Organization [facility] t Address [address] [place] [address] Care Team Providers Name Role Phone Heather FOX, C Primary Care Physician Heather FOX C Attending Clinician Giovanni LEON Attending Clinician Unavailable Malik PLUNKETT Attending Clinician MALIK Attending Clinician Unavailable Aime PLUNKETT Attending Clinician Aditya PLUNKETT Attending Clinician Doctor Unassigned, Name Attending Clinician Unavailable Jhonathan MEYER Attending Clinician Unavailable Zia ROMERO Attending Clinician Unavailable KATIE CAAL Attending Clinician Unavailable Betsy LEES R Attending Clinician Lab, Fam Pob I Attending Clinician Unavailable Lavern LEES Attending Clinician LAVERN Attending Clinician Unavailable MALIK Admitting Clinician Unavailable Malik PLUNKETT Admitting Clinician Payers Payer Name Policy Type Policy Number Effective Date Expiration Date S gia EGANS [id number] 2020 HEALTH 00:00:00 MEDICAID PENDING PENDING 2020 00:00:00 [place]ID OF [place] [id number] 2020 00:00:00 Problems Condition Condition Condition Status Onset Resolution Last Treating Co mments Source Name Details Category Date Date Treatment Clinician Date Chorioamni Chorioamni Disease Active 2020-06 U kervin onitis in onitis in -18 ity of second second 00:00: [place] trimester trimester 00 [facility] Disease Active 2020-06 Univers labor in labor in 18 ity of second second 00:00: [place] trimester trimester 00 [facility] 19 weeks 19 weeks Disease Active 2020-06 Unive rs gestation gestation 1-13 ity of of of 00:00: [place] 00 [facility] Susceptibl Susceptibl Disease Active Overview : Univers e to e to 02-05 Formattin ity of varicella varicella 00:00: [place] of this [place] (non-immun (non-immun 00 note Me dical e), e), might be Branch currently currently different from the original. Address pp Abnormal Abnormal Disease Active Overview: Un felicia maternal maternal 02-04 Formattin ity of glucose glucose 00:00: g of this [place] tolerance, tolerance, 00 note Me dical antepartum antepartum might be Branch different from the original. 3hr gtt passed early, repeat at 26 weeks History of History of Disease Active U kervin miscarriag miscarriag 02-03 it y of e e 00:00: [place] 00 [facility] Maternal Maternal Disease Active 2019-06 Overview: Un felicia varicella, varicella, 2-03 [place] it y of non-immune non-immune 00:[place] 00 in Medical Postpartu Branch m. Rubella Rubella Disease Active 2019-06 Overview: Univ ers non-immune non-immune 2-03 Will it y of status, status, 00:00: address [place] antepartum antepartum 00 in Ny dical Postpartu Branch m. Obesity Obesity Disease Active 2019-06 Univers (BMI (BMI 2-02 ity of 30-39.9) 30-39.9) 00:00: [place] 00 Medical Branch Screening Screening Disease Active 2019-06 Uni vers for viral for viral 2- ity of disease disease 00:00: [place] 00 Medical Branch Obesity in Obesity in Disease Active 2019-06 U nivers 2-02 ity of 00:00: [place] 00 Medical Branch Primigravi Primigravi Disease Active 2019- U nivers da in da in 07-09 ity of first first 00:00: [place] trimester trimester 00 [facility] Branch Supervisio Supervisio Disease Active 2019-06 U nivers n of high n of high 07-09 ity of risk risk 00:00: [place] 00 Medi noreen in first in first Branch trimester trimester Allergies, Adverse Reactions, Alerts Allergy Allergy Status Severity Reaction(s) Onset Inactive Treating Comm ents Source Name Type Date Date Clinician NO KNOWN Drug Active [facility] ALLERGIE Class ity of S [facility] Social History Social Habit Start Date Stop Date Quantity Comments Source ASSERTION 2020-03-26 University of 00:00:00 [facility] History SDOH University o f Alcohol Frequency [facility] edical [place] History SDOH University o f Alcohol Std [place] Medical Drinks Branch History SDKY University o f Alcohol Binge [facility] al [place] Exposure to Not sure [facility] SARS-CoV-2 [facility] (event) [place] Sex Assigned At Universit y of [facility] Tobacco use and 2020-05-20 2020-05-20 Never used Universit y of exposure 00:00:00 00:00:00 [facility] Alcohol intake 2020-05-20 2020-05-20 Ex-drinker University 00:00:00 00:00:00 (finding) [facility] Alcohol Comment 2020-05-08 2020-05-08 2 glasses daily Univ ersity of 00:00:00 00:00:00 before [facility] dical [place] Smoking Status Start Date Stop Date Source Unknown if ever smoked [facility] Never smoker [facility] Medications Ordered Filled Start Stop Current Ordering Indication Dosage Frequency Signature Comments Components Source Medication Medication Date Date Medication? Clinician (SIG) Name Name benzocaine- 2020-06 Yes [id number] Apply to [facility] menthol, 1-17 area(s) as ity o f DERMOPLAST, 00:00[place] 20-0.5 % 00 (Perineum Medica l topical discomfort Branch spray ). docusate 2020-06 Yes [id number] 240mg Take 1 Un felicia calcium 240 1-17 capsule by it y of mg capsule 00:00: mouth once [place] 00 daily as Medical needed for Branch Constipati on. Nitrofurant 2020-06 Yes [id number] 100mg Take 1 Univers oin&Nit. 1-17 capsule by ity o f Macrocryst 00:00: mouth 2 [place] 100 mg 00 (two) Medical capsule times Branch daily. simethicone 2020-06 Yes [id number] 160mg Take 2 Univers 80 mg 1-17 tablets by ity of chewable 00:00: mouth [place] tablet 00 after Medical meals and Branch at bedtime as needed for Gas. 2020-06 Yes [id number] 1{tbl} Take 1 U nivers [id number] 1-17 tablet by ity of fum-folic 00:00: mouth [place] () 00 daily. Medical 27 mg iron- Branch 1 mg Tab docusate 2020-06 Yes [id number] 240mg Take 1 Un felicia calcium 240 1-17 capsule by it y of mg capsule 00:00: mouth once [place] 00 daily as Medical needed for Branch Constipati on. ferrous 2020-06 Yes [id number] 325mg Take 1 Uni vers sulfate 325 1-17 tablet by ity of mg (65 mg 00:00: mouth 2 [place] iron) 00 (two) Medical tablet times Branch daily. ibuprofen 2020-06 Yes [id number] 600mg Take 1 U nivers 600 mg 1-17 tablet by ity of tablet 00:00: mouth [place] 00 every 6 Medical (six) Branch hours as needed (Pain). Take with food or milk. benzocaine- 2020-06 Yes [id number] Apply to Univers menthol, 1-17 area(s) as ity o f DERMOPLAST, 00:00: [place] 20-0.5 % 00 (Perineum Medica l topical discomfort Branch spray ). docusate 2020-06 Yes [id number] 240mg Take 1 Un felicia calcium 240 1-17 capsule by it y of mg capsule 00:00: mouth once [place] 00 daily as Medical needed for Branch Constipati on. Nitrofurant 2020-06 Yes [id number] 100mg Take 1 Univers oin&Nit. 1-17 capsule by ity o f Macrocryst 00:00: mouth 2 [place] 100 mg 00 (two) Medical capsule times Branch daily. simethicone 2020-06 Yes [id number] 160mg Take 2 Univers 80 mg 1-17 tablets by ity of chewable 00:00: mouth [place] tablet 00 after Medical meals and Branch at bedtime as needed for Gas. 2020-06 Yes [id number] 1{tbl} Take 1 U nivers [id number] 1-17 tablet by ity of fum-folic 00:00: mouth [place] () 00 daily. Medical 27 mg iron- Branch 1 mg Tab docusate 2020-06 Yes [id number] 240mg Take 1 Un felicia calcium 240 1-17 capsule by it y of mg capsule 00:00: mouth once [place] 00 daily as Medical needed for Branch Constipati on. ferrous 2020-06 Yes [id number] 325mg Take 1 Uni vers sulfate 325 1-17 tablet by ity of mg (65 mg 00:00: mouth 2 [place] iron) 00 (two) Medical tablet times Branch daily. ibuprofen 2020-06 Yes [id number] 600mg Take 1 U nivers 600 mg 1-17 tablet by ity of tablet 00:00: mouth [place] 00 every 6 Medical (six) Branch hours as needed (Pain). Take with food or milk. benzocaine- 2020-06 Yes [id number] Apply to Univers menthol, 1-17 area(s) as ity o f DERMOPLAST, 00:00: [place] 20-0.5 % 00 (Perineum Medica l topical discomfort Branch spray ). docusate 2020-06 Yes [id number] 240mg Take 1 Un fel[place] calcium 240 1-17 capsule by it y of mg capsule 00:00: mouth once [place] 00 daily as Medical needed for Branch Constipati on. Nitrofurant 2020-06 Yes [id number] 100mg Take 1 Univers oin&Nit. 1-17 capsule by ity o f Macrocryst 00:00: mouth 2 [place] 100 mg 00 (two) Medical capsule times Branch daily. simethicone 2020-06 Yes [id number] 160mg Take 2 Univers 80 mg 1-17 tablets by ity of chewable 00:00: mouth [place] tablet 00 after Medical meals and Branch at bedtime as needed for Gas. 2020-06 Yes [id number] 1{tbl} Take 1 U nivers [id number] 1-17 tablet by ity of fum-folic 00:00: mouth [place] () 00 daily. Medical 27 mg iron- Branch 1 mg Tab docusate 2020-06 Yes [id number] 240mg Take 1 Un fel[place] calcium 240 1-17 capsule by it y of mg capsule 00:00: mouth once [place] 00 daily as Medical needed for Branch Constipati on. ferrous 2020-06 Yes [id number] 325mg Take 1 Uni vers sulfate 325 1-17 tablet by ity of mg (65 mg 00:00: mouth 2 [place] iron) 00 (two) Medical tablet times Branch daily. ibuprofen 2020-06 Yes [id number] 600mg Take 1 U nivers 600 mg 1-17 tablet by ity of tablet 00:00: mouth [place] 00 every 6 Medical (six) Branch hours as needed (Pain). Take with food or milk. rho(D) 2020-06 Yes 300ug 300 mcg, Univer s immune -16 Intramuscu ity of globulin 12:36: lar, ONCE, Andre as (RHOGAM) 21 For 1 Medical syringe 300 dose, Branch mcg Conditiona l, Routine ibuprofen 2020-06 Yes 600mg 600 mg, Univ ers (IBU) -16 Oral, ity of tablet 600 12:36: Q6HPRN, [place] mg 19 Starting Medical on [facility] 04/22/21 at 0636, Until Discontinu ed, Routine, Pain (scale 4-6) acetaminoph 2020-06 Yes 650mg 650 mg, Un felicia en -16 Oral, ity of (TYLENOL) 12:36: Q6HPRN, [place] tablet 650 19 Starting Medic al mg on Wed [place] 04/22/21 at 0636, Until Discontinu ed, Routine, Pain (scale 1-3) diphenhydrA 2020-06 Yes 25mg 25 mg, Univ ers MINE 1-16 Oral, ity of (BENADRYL) 12:36: Q6HPRN, [place] tablet 25 19 Starting Medica l mg on Wed [place] 04/22/21 at 0636, Until Discontinu ed, Routine, Sleep, Itching diphenhydrA 2020-06 Yes 25mg 25 mg, IV U nivers MINE-0.9 % 1-16 Piggyback, ity of sod.chlr 12:36: Administer [place] (BENADRYL) 19 over 30 Medica l 25 mg/50 mL Minutes, Bran ch piggyback Q6HPRN, 25 mg Starting on Wed04/22/21 at 0636, Until Discontinu ed, Routine, Itching ondansetron 2020-06 Yes 4mg 4 mg, Slow Univers (ZOFRAN 06-22 IV Push, ity of (PF)) 12:36: Q8HPRN, [place] injection 4 19 Starting Medi noreen mg on Wed Branch 04/22/21 at 0636, Until Discontinu ed, Routine, Nausea and Vomiting (N/V) simethicone 2020-06 Yes 160mg 160 mg, Un felicia (GAS RELIEF 06-22 Oral, ity of (SIMETHICON 12:36: PC+HSPRN, [place] E)) 19 Starting Medical chewable on Wed tablet 160 04/22/21 mg at 0636, Until Discontinu ed, Routine, Gas docusate 2020-06 Yes 240mg 240 mg, Unive rs calcium 06-22 Oral, ity of (SURFAK) 12:36: QDAILYPRN, [place] capsule 240 19 Starting Medi noreen mg on Wed Branch 04/22/21 at 0636, Until Discontinu ed, Routine, Constipati on magnesium 2020-06 Yes 30mL 30 mL, Univer s hydroxide 06-22 Oral, ity of (MILK OF 12:36: QDAILYPRN, [place] as MAGNESIA) 19 Starting Medica l 400 mg/5 mL on Wed suspension 04/22/21 30 mL at 0636, Until Discontinu ed, Routine, Constipati on benzocaine- 2020-06 Yes Topical, Un felicia menthol 06-22 PRN, ity of (DERMOPLAST 12:36: [place] 20-0.5 % 19 on Wed Medical topical 04/22/21 Branch spray at 0636, Until Discontinu ed, Routine, Perineum discomfort miSOPROStoL 2020-06- No 400ug 400 mcg, Univers (CYTOTEC) 06-22 Vaginal, ity o f tablet 400 08:15: 07:00 ONCE, 1 [place] mcg 00 :00 dose, On Medical Branch 04/22/21 at 0215, Routine miSOPROStoL 2020-06- No 400ug 400 mcg, Univers (CYTOTEC) 06-22 Vaginal, ity o f tablet 400 04:30: 03:55 ONCE, 1 [place] mcg 00 :00 dose, On Medical [facility] 04/21/21 at 2230, Routine acetaminoph 2020-06- No 650mg 650 mg, U nivers en 06-22 Oral, ity of (TYLENOL) 02:25: 12:36 Q6HPRN, [place] tablet 650 53 :22 Starting Medic al mg on [facility] 04/21/21 at 2025, Until Wed04/22/21 at 0636, Routine, Temp > 38.5 C miSOPROStoL 2020-06- No 400ug 400 mcg, Univers (CYTOTEC) 06-21 Vaginal, ity o f tablet 400 23:53: 00:11 ONCE, 1 [place] mcg 00 :00 dose, On Medical [facility] 04/21/21 at 1800, Routine acetaminoph 2020-06- No 1000mg 1,000 mg, Univers en 06-21 Oral, ity of (TYLENOL) 22:00: 21:14 ONCE, 1 [place] tablet 00 :00 dose, On Medical 1,000 mg [facility] 04/21/21 at 1600, Routine lactated 2020-06- No 1000mL at 999 Univ ers ringers IV 06-21 11-15 mL/hr, ity of infusion 19:45: 18:58 1,000 mL, Andre as 1,000 mL 00 :00 Intravenou Medic al s, ONCE, 1 Branch dose, On Wed04/21/21 at 1345, Routine lactated 2020-06- No 500mL at 999 Unive rs ringers IV 06-21 11-15 mL/hr, 500 it y of infusion 19:00: 17:37 mL, IV [place] 500 mL 00 :00 Infusion, Medical ONCE, 1 Branch dose, On Wed04/21/21 at 1300, Routine phenylephri 2020-06- No Slow IV Un felicia ne 06-21 Push, ONCE ity of (VAZCULEP) 18:07: 12:00 INTRA [place] injection 00 :42 PROCEDURE, Medi noreen Starting Branch on Wed04/21/21 at 1207, Until Discontinu ed, Routine, Intra-op lidocaine-e 2020-06- No Intraderma Univers pinephrine 06-21 11-16 l, ONCE ity o f (XYLOCAINE 17:58: 12:00 INTRA [place] W/EPINEPHRI 00 :42 PROCEDURE, Ny dical NE) 1.5 Starting Branch %-1:200,000 on Mon injection 04/21/21 at 1158, Until Discontinu ed, Routine, Intra-op FENTanyl 2 2020-06- No Intra-op Un felicia mcg/mL + 15 -16 ity of bupivacaine 17:51: 12:00 [place] 0.125% in 00 :42 Medical NS 250 mL Branch epidural bag FENTanyl 2 2020-06- No Intra-op Un felicia mcg/mL + 15 16 ity of bupivacaine 17:51: 12:00 [place] 0.125% in 00 :42 Medical NS 250 mL Branch epidural bag sodium 2020-06- No 30mL 30 mL, Univers citrate-cit 06-21 Oral, ity of laith acid 17:37: 17:44 PRE-PROCED [place] (BICITRA) 09 :00 URE ONCE, Medic al 500-334 1 dose, Branch mg/5 mL Starting solution 30 on Mon mL 04/21/21 at 1137, Until Wed04/21/21 at 1144, Routine, Surgery/Pr ocedure gentamicin 2020-06 Yes 315mg 315.2 mg Un fel[place] 40 mg/mL 06-21 (rounded ity of 315.2 mg in 16:45: from 315 [place] NaCl 0.9% 00 mg), IV Medical (NS) 250 mL Infusion, Bra nch IV infusion Q24H ABX, First dose on Wed04/21/21 at 1045, Until Discontinu ed, Administer over 60 Minutes, 250 mL
Reas on for Anti-Infec tive: Empiric Therapy for Suspected Infection< br>Empiric Therapy Site: Pelvic
Duration of therapy: 72 hours ampicillin 2020-06 Yes 2g 2,000 mg Uni vers (POLYCILLIN 1-15 (2 g), IV ity of -N) 2,000 16:45: [place]back, [place] mg in NaCl 00 Q6H ABX, Medic al 0.9% (NS) First dose Bran ch 100 mL on Mon MINI-BAG 04/21/21 at 1045, Until Discontinu ed, Administer over 30 Minutes, 100 mL
Reas on for Anti-Infec tive: Empiric Therapy for Suspected Infection< br>Empiric Therapy Site: Pelvic
Duration of therapy: 72 hours LR 1000 mL 2020-06- No 2mU/min at 6-120 Univers + oxytocin 1-15 11-16 mL/hr, IV ity of 20 units IV 15:37: 12:36 Infusion, [place] Solution 58 :22 TITRATE, Medical Starting Branch on Wed04/21/21 at 0937, Until Wed04/22/21 at 0636, CARIE Nitrofurant 2020-06 Yes 100mg 100 mg, Un felicia oin&Nit. 1-14 Oral, BID, ity o f Macrocryst 14:00: First dose [place] (MACROBID) 00 on [facility] 100 mg 04/20/21 Branch capsule 100 at 0800, mg Until Discontinu ed, Routine
Reason for Anti-Infec tive: Documented Infection< br>Documen flores Infection Site: Urine
D uration of Therapy: 7 days D5W-LR IV 2020-06- No 1000mL at 125 Uni vers infusion 1-14 11-16 mL/hr, IV ity o f 1,000 mL 05:15: 12:36 Infusion, Andre as 00 :22 CONTINUOUS Medical , Starting Branch on [facility] 04/19/21 at 2315, Until Wed04/22/21 at 0636, Routine 2020-06- No 1{tbl} 1 tablet, U nivers vitamin -04-22 Oral, ity of w/FA 05:15: 12:36 DAILY, [place] (PRENATABS 00 :22 First dose Med ical RX) tablet on [facility] Branch 1 tablet 04/19/21 at 2315, Until Discontinu ed, Routine acetaminoph 2020-06- No 650mg 650 mg, U nivers en -14 15 Oral, ity of (TYLENOL) 05:08: 15:45 Q6HPRN, [place] tablet 650 14 :06 Starting Medic al mg on Sat Branch 04/19/21 at 2308, Until Wed04/21/21 at 0945, Routine, Pain (scale 1-3), Pain (scale 4-6) pyridoxine, 2020-06 Yes [id number] 25mg Take 1 Univers VITAMIN 0-20 tablet by ity of B-6, 25 mg 00:00: mouth [place] tablet 00 daily. Medical Branch doxylamine 2020-06 Yes [id number] 25mg Take 1 Univers 25 mg 0-20 tablet by ity of tablet 00:00: mouth at [place] 00 bedtime. Medical Branch acetaminoph 2020-06 Yes [id number] 1{capsu Take 1 Univers en-caff-but 0-20 le} capsule by it y of albital 00:00: mouth [place] (ESGIC) per 00 every 6 Medic al capsule (six) Branch hours as needed (headache) . acetaminoph 2020-06- No [id number] 1{capsu Take 1 Univers en-caff-but 0-20 11-17 le} capsule by i ty of albital 00:00: 00:00 mouth [place] (ESGIC) per 00 :00 every 6 Medic al capsule (six) Branch hours as needed (headache) . pyridoxine, 2020-06- No [id number] 25mg Take 1 Univers VITAMIN 0-20 11-17 tablet by ity of B-6, 25 mg 00:00: 00:00 mouth [place] tablet 00 :00 daily. Medical Branch doxylamine 2020-06- No [id number] 25mg Take 1 Univers 25 mg 0-20 11-17 tablet by ity of tablet 00:00: 00:00 mouth at [place] 00 :00 bedtime. Medical Branch No known No [facility] No known No Univers medications [facility] No known No Univers medications [facility] No known No Univers medications [facility] Vital Signs Vital Name Observation Time Observation Value Comments Source Systolic blood 2021-04-23 22:30:00 111 mm[Hg] Univer sity of pressure [facility] Diastolic blood 2021-04-23 22:30:00 71 [facility]Hg[facility] 2021-04-23 22:30:00 91 /min Universi ty [facility] Body temperature 2021-04-23 22:30:00 36.83 Qi Univ ersity [facility] Respiratory rate 2021-04-23 22:30:00 18 /min Univ ersity of [facility] Oxygen saturation in 2021-04-23 22:30:00 98 /min University Arterial blood by [facility] Pulse oximetry [place] Body height 2021-04-22 07:00:00 149.[address] [facility] Body weight 2021-04-22 07:00:00 87.998 kg Universi ty of [place] [facility] Branch BMI 2021-04-22 07:00:00 39.18 kg/m2 Universi ty of [facility] Systolic blood 2020-05-20 21:26:00 113 mm[Hg] Univer sity of pressure [facility] Diastolic blood 2020-05-20 21:26:00 67 mm[Hg] Unive rsity of pressure [facility] Heart rate 2020-05-20 21:26:00 85 /min Universi ty of [facility] Body temperature 2020-05-20 21:26:00 37.06 Qi Univ [address] of [facility] Respiratory rate 2020-05-20 21:26:00 16 /min Univ ersity of [facility] Body height 2020-05-20 21:26:00 149.[address] [facility] Body weight 2020-05-20 21:26:00 78[address] [facility] BMI 2020-05-20 21:26:00 34.78 kg/m2 Universi ty of [facility] Systolic blood 2020-05-08 15:05:00 127 mm[Hg] Univer sity of pressure [facility] Diastolic blood 2020-05-08 15:05:00 69 mm[Hg] Unive rsity of pressure [facility] Heart rate 2020-05-08 15:05:00 86 /min Universi ty of [facility] Body temperature 2020-05-08 15:05:00 37.17 Qi Univ ersity of [facility] Respiratory rate 2020-05-08 15:05:00 16 /min Univ ersity of [facility] Body height 2020-05-08 15:05:00 149.[address] [facility] Body weight 2020-05-08 15:05:00 76.023 kg Universi ty of [place] [facility] Branch BMI 2020-05-08 15:05:00 33.85 kg/m2 Universi ty of [place] [facility] Systolic blood 2020-05-08 15:05:00 127 mm[Hg] [facility] Diastolic blood 2020-05-08 15:05:00 69 mm[Hg] [facility] Heart rate 2020-05-08 15:05:00 86 /min [facility] Body temperature 2020-05-08 15:05:00 37.17 Qi [facility] Respiratory rate 2020-05-08 15:05:00 16 /min [facility] Body height 2020-05-08 15:05:00 149.9 cm [facility] Body weight 2020-05-08 15:05:00 76.023 kg [facility] BMI 2020-05-08 15:05:00 33.85 kg/m2 [facility] Procedures Procedure Date / Time Performing Clinician Source Performed CBC WITH DIFF 2021-04-22 12:43:00 Yecenia Uriartessa [facility] CENTRAL NEURAXIAL BLOCK 2021-04-21 18:13:55 Owen Briscoe [facility] LACTIC ACID WHOLE BLOOD 2021-04-21 17:13:00 Analia Christopher [facility] COMP. METABOLIC PANEL 2021-04-21 16:19:00 Analia Christopher [facility] ([id number]) [facility] PROTHROMBIN TIME / INR 2021-04-21 16:19:00 Analia Christopher [facility] ACTIVATED PARTIAL 2021-04-21 16:19:00 Analia [facility] 2021-04-21 16:19:00 nAalia Christopher [facility] CBC WITH DIFF 2021-04-21 15:45:00 Ashwin Analia [facility] BLOOD CULTURE SCREEN 2021-04-21 15:44:[address] [facility] BLOOD CULTURE SCREEN 2021-04-21 15:43:[address] [facility] URINE CULTURE 2021-04-20 13:42:[address] [facility] HB ABO GROUPING 2021-04-20 06:50:00 Marie Varghese [facility] RHO (D) IMMUNE GLOBULIN 2021-04-20 06:50:00 Ana Paula Uriarte [facility] CBC WITH DIFF 2021-04-20 06:44:00 Marie Varghese [facility] URINALYSIS 2021-04-20 06:43:00 Marie Varghese [facility] HEPATITIS B SURFACE 2021-04-20 06:43:00 Marie Varghese Univers [facility] ANTIGEN [facility] GC & CHLAMYDIA AMPLIFIED 2021-04-20 06:43:00 [facility] HIV 1/2 AG-AB WITH REFLEX 2021-04-20 06:43:00 [facility] ONLY - SYPHILIS 2021-04-20 06:43:00 Marie Varghese [facility] IGG/IGM [facility] COVID-19 (ID NOW RAPID 2021-04-20 04:34:00 Spencer Gan [facility] TESTING) Medical Branch LAB ONLY COVID 2021-04-20 04:34:00 Spencer Gan [place] [facility] [place] INTERPRETATION [facility] HOSPITAL ADMISSION 2021-04-19 06:01:00 Doctor Unassigned, No Uni [facility] POCT TEST 2020-05-20 21:42:00 Tamar Romero Uni [facility] POCT URINALYSIS 2020-05-20 21:34:00 Richard Meyer [facility] ASSIGNMENT OF BENEFITS 2020-05-08 14:27:26 Doctor Unassigned, No [facility] POCT TEST 2020-05-08 00:00:00 [facility] POCT URINALYSIS W/O 2020-05-08 00:00:00 Richard [facility] [place] [facility] SPECIFIC GRAVITY [facility] Encounters Start End Encounter Admission Attending Care Care Encounter Source Date/Time Date/Time Type Type Clinicians Facility Department ID 2021-04-23 Outpatient P [facility] TALIB [id number] Univers 19:10:40 ity [facility] 2021-05-28 2021-05-28 Outpatient R [facility] [id number] Univers 10:45:00 10:45:00 [id number] ity [facility] 2021-05-28 2021-05-28 Outpatient P [facility] [id number] Univers 10:45:00 10:45:00 ity [facility] 2021-05-21 2021-05-21 [facility]phone [facility] 1.2.840.114 [id number] Univers 00:00:00 00:00:00 Tamar Lizarraga DANCE ENTERTAINER 350.1.13.10 ity of [place] [id number] Andre as MATERNAL [phone] Med ical & CHILD [address] [place] [address] 2021-04-24 2021-04-24 [facility] [id number] Univers 10:00:00 10:00:00 [facility] 2021-04-19 2021-04-23 Hospital SOLEDAD Gan 1.2.840.114 [id number] Univers 22:12:00 18:48:00 Encounter Spencer DISLA 350.1.13.10 ity of [place] [id number] Andre as [phone] [facility] [address] 2021-04-19 2021-04-23 [facility] TALIB [id number] Univers 22:12:00 18:48:00 SPENCER itclarke [facility] 2021-04-21 2021-04-22 Anesthesia Cecily Saolmon 1.2.840.1 [id number] Univers 11:35:00 06:00:00 Event Richy Burgess 350.1.13.10 ity of [place] [id number] Andre as [phone] [facility] [address] 2021-04-19 2021-04-19 Orders Doctor ROWE 1.2.840.114 [id number] Univers 00:00:00 00:00:00 Only Unassigned, NIGHAT 350.1.13.10 ity of [place] [facility] 4.2.7.2.686 Andre as [phone] [address] 2020-06-05 2020-06-05 Outpatient R BETSY, [facility] [id number] Univers 09:00:00 09:00:00 ROSHUNDA ity o f [facility] 2020-06-05 2020-06-05 Outpatient R BETSY, [facility] [id number] Univers 09:00:00 09:00:00 ROSHUNDA ity o f [facility] 2020-06-04 2020-06-04 Outpatient R AKINSIPE, [facility] [id number] Univers 12:45:00 12:45:00 TAMAR [id number] ity o [facility] 2020-06-04 2020-06-04 Outpatient R AKINSIPE, [facility] [id number] Univers 12:45:00 12:45:00 TAMAR ity o [facility] 2020-05-20 2020-05-20 [facility]ine [facility] 1.2.600.719 [id number] Univers 15:01:31 15:48:39 Tamar C DANCE ENTERTAINER 350.1.13.10 ity of Visit REGIONAL 4.2.7.2.686 Andre as MATERNAL [phone] Med ical & CHILD [address] [place] [address] 2020-05-20 2020-05-20 Outpatient R AKINSIPE, [facility] [id number] Univers 15:15:00 15:15:00 TAMAR [id number] ity o [facility] 2020-05-20 2020-05-20 Outpatient R AKINSIPE, [facility] [id number] Univers 15:15:00 15:15:00 TAMAR ity o [facility] 2020-05-09 2020-05-09 Outpatient R CAAL, BISI [facility] [id number] Univers 09:00:00 09:00:[address] [facility] 2020-05-08 2020-05-08 Initial Betsy, [facility] 1.2.840.114 [id number] 08:54:15 10:00:35 Roshunda R DANCE ENTERTAINER 350.1.13.10 Visit REGIONAL 4.2.7.2.686 MATERNAL [id number] & CHILD 107 [facility] 2020-05-08 2020-05-08 Initial Betsy [facility] 1.2.840.114 [id number] Univers 08:54:15 10:00:35 Richard Ring DANCE ENTERTAINER 350.1.13.10 ity of Visit [facility] 4.2.7.2.686 Andre as MATERNAL [phone] Med ical & CHILD [address] [place] [address] 2020-05-08 2020-05-08 Outpatient R [facility] [id number] Univers 08:00:00 08:00:[address] [facility] 2020-05-08 2020-05-08 [facility] [id number] Univers 08:00:00 08:00:00 RICHARD ity o f [facility] 2020-05-08 2020-05-08 Orders Doctor SOLEDAD 1.2.840.114 [id number] Univers 00:00:00 00:00:00 Only Unassigned, NIGHAT 350.1.13.10 ity of [place] [facility] 4.2.7.2.686 Andre as [phone] [address] 2019-12-13 2019-12-13 Laboratory Lab, Adc Fam Pob I [facility] 1.2. 840.114 [id number] Univers 07:53:50 08:13:50 Only Lavern [employer] 350.1.13.10 ity of [place] 4.2.7.2.686 Andre as Professio [phone] Ny dical [facility] [address] 2019-12-13 2019-12-13 Outpatient R LAVERN [facility] [id number] Univers 07:40:00 07:40:00 KAYLAN patino [facility] Results Test Description Test Time Test Comments Results Result Comments Source CBC with Differential 2021-04-22 13:06:42 Test Item Value Reference Range Interpretation Comme nts WBC (test code = 6690-2) See_Comment H [A utomated message] The system which ge nerated this result transmit flores reference range: 4.30 - 1 1.10 10*3/?L. The reference r allie was not used to interpr et this result as normal/abnor mal. RBC (test code = 789-8) See_Comment L [Au tomated message] The system which [employer] nerated this result transmit flores reference range: 3.93 - 5 .25 10*6/?L. The reference r allie was not used to interpr et this result as normal/abnor mal. HGB (test code = 718-7) 10.4 g/dL 11.6-15.0 L HCT (test code = 4544-3) 31.0 % 35.7-45.2 L MCV (test code = 787-2) 90.6 fL 80.6-95.5 MCH (test code = 785-6) 30.4 pg 25.9-32.8 MCHC (test code = 786-4) 33.5 g/dL 31.6-35.1 RDW-SD (test code = 19242-3) 41.5 fL 39.0-49.9 RDW-CV (test code = 788-0) 12.6 % 12.0-15.5 PLT (test code = 777-3) See_Comment [Au tomated message] The system which [employer] nerated this result transmit flores reference range: 166 - 35 8 10*3/?L. The reference range was not used to interpret th is result as normal/abnormal . MPV (test code = 08774-9) 10.4 fL 9.5-12.9 NRBC/100 WBC (test code = See_Comment [ Automated message] The 6241265953) system which [employer] nerated this result transmit flores reference range: 0.0 - 10 .0 /100 WBCs. The reference r allie was not used to interpr et this result as normal/abnor mal. NRBC x10^3 (test code = <0.01 See_Comment [Au tomated message] The 5448695320) system which [employer] nerated this result transmit flores reference range: 10*3/?L. The reference range was not u sed to interpret this result as normal/abnormal . GRAN MAT (NEUT) % (test code 84.5 % = 770-8) IMM GRAN % (test code = 1.00 % 3705964040) LYMPH % (test code = 736-9) 9.0 % MONO % (test code = 5905-5) 4.9 % EOS % (test code = 713-8) 0.3 % BASO % (test code = 706-2) 0.3 % GRAN MAT x10^3(ANC) (test 12.85 10*3/uL 1.88-7.09 H code = 5086066173) IMM GRAN x10^3 (test code = 0.15 10*3/uL 0.00-0.06 H 1070041024) LYMPH x10^3 (test code = 1.37 10*3/uL 1.32-3.29 731-0) MONO x10^3 (test code = 0.74 10*3/uL 0.33-0.92 742-7) EOS x10^3 (test code = 0.05 10*3/uL 0.03-0.39 711-2) BASO x10^3 (test code = 0.05 10*3/uL 0.01-0.07 704-7) Lab Interpretation (test Abnormal code = 13868-4) [facility] IMMUNE [id number] 12:46:49 Test Item Value Reference Range Interpretation Comments RHIG CANDIDATE? No- see comment Patient i s not a (test code = candidate for R [facility]- 5055) Patient is Rh Positive.Perfor med at [facility] Laboratory Services - [facility] Blood [address] [place] [address]Glpk Free: [phone] A No. [id number] [facility] CenterLactic Acid Whole [id number] 17:30:15 Test Item Value Reference Range Interpretation Comments LACTIC ACID (test code = 0.89 mmol/L 0.50-2.20 6404766207) Lab Interpretation (test code = Normal 61873-7) [facility] CenterCOM. METABOLIC PANEL (73705)2021-04-21 17:06:58 Test Item Value Reference Range Interpretation Comments NA (test code = 134 mmol/L 135-145 L 1594715086) K (test code = 3.5 mmol/L 3.5-5.0 7673679373) CL (test code = 104 mmol/L 98-108 4710494262) CO2 TOTAL (test code = 21 mmol/L 23-31 L 7540004910) AGAP (test code = 2-16 2218674118) BUN (test code = 3 mg/dL 7-23 L 5069381080) GLUCOSE (test code = 84 mg/dL 70-110 7273289772) CREATININE (test code = 0.34 mg/dL 0.50-1.04 L 9861544691) TOTAL BILI (test code = 0.8 mg/dL 0.1-1.5 5539195542) CALCIUM (test code = 9.0 mg/dL 8.6-10.6 0938272730) T PROTEIN (test code = 6.4 g/dL 6.3-8.2 8236542317) ALBUMIN (test code = 3.6 g/dL 3.5-5.0 5253515657) ALK PHOS (test code = 81 U/L 34-122 6976398771) ALTv (test code = 27 U/L 5-35 1742-6) AST(SGOT) (test code = 22 U/L 13-40 6780767052) eGFR (test code = mL/min/1.73m2 7683975918) GAL (test code = GAL) Association of Glomerular Filtration Rate (GFR) and Staging of Kidney Disease* + --+ --+ ------+| GFR (mL/min/1.73 m2) ?| With Kidney Damage ?| ?Without Kidney Damage+ --------+ --------+ +| ?>90 ?| ?Stage one ?| ? Normal ?+ ---+ ---+ -------+| ?60-89 ?| ?Stage two ?| ? Decreased GFR ? + --+ --+ ------+| ?30-59 ?| ?Stage three ?| ? Stage three ? + --+ --+ ------+| ?15-29 ?| ?Stage four ? | ? Stage four ?+ ---+ ---+ -------+| ?<15 (or dialysis) ? ?| ?Stage five ? | ? Stage five ?+ ---+ ---+ -------+ *Each stage assumes the associated GFR level has been in effect for at least three months. ?Stages 1 to 5, with or without kidney disease, indicate chronic kidney disease. Notes: Determination of stages one and two (with eGFR >59mL/min/1.73 m2) requires estimation of kidney damage for at least three months as defined by structural or functional abnormalities of the kidney, manifested by either:Pathological abnormalities or Markers of kidney damage (including abnormalities in the composition of the blood or urine or abnormalities in imaging tests). Lab Interpretation Abnormal (test code = 25909-3) [facility] CenterPROTHROMBIN TIME / [id number] 16:54:54 Test Item Value Reference Range Interpretation Comments PROTIME PATIENT (test See_Comment [Auto mated message] code = 5964-2) The system ich generated this result transmitted ref erence range: 10.1 - 1 2.6 Seconds. The re ference range was not u sed to interpret this result as normal/abnor mal. INR (test code = 6301-6) Nor mal INR <1.1; Warfarin Therap eutic range 2.0 to 3. 0 or 2.5 to 3.5, dep ending upon the indica tions. Lab Interpretation (test Normal code = 51177-8) [facility] CenterACTIVATED PARTIAL THRMPLAS [id number] 16:54:54 Test Item Value Reference Range Interpretation Comments APTT Patient (test code = See_Comment [ Automated message] 3173-2) The system ic h generated this result transmitted ref erence range: 26 - 36 Seconds. The re ference range was not u sed to interpret this result as normal/abnor mal. Lab Interpretation (test Normal code = 88433-3) [facility] CenterFIBRINOGEN2021-11-15 16:54:54 Test Item Value Reference Range Interpretation Comments Fibrinogen (test code = 5725667520) 688 mg/dL 167-453 H Lab Interpretation (test code = Abnormal 70331-0) [facility] CenterCBC WITH [id number] 16:12:53 Test Item Value Reference Range Interpretation Comments WBC (test code = See_Comment H [Automated 8590-2) message] The system which generated this result transmit flores reference range : 4.30 - 11.10 10*3/?L. The reference range was not used to interpret this result as normal/abnormal . RBC (test code = See_Comment L [Automated 999-8) message] The system which generated this result transmit flores reference range : 3.93 - 5.25 10*6/?L. The reference range was not used to interpret this result as normal/abnormal . HGB (test code = 10.8 g/dL 11.6-15.0 L 718-7) HCT (test code = 31.3 % 35.7-45.2 L 4544-3) MCV (test code = 88.9 fL 80.6-95.5 787-2) MCH (test code = 30.7 pg 25.9-32.8 785-6) MCHC (test code = 34.5 g/dL 31.6-35.1 786-4) RDW-SD (test code = 41.3 fL 39.0-49.9 27853-7) RDW-CV (test code = 12.7 % 12.0-15.5 788-0) PLT (test code = See_Comment [Automated 777-3) message] The system which generated this result transmit flores reference range : 166 - 358 10*3/ ?L. The reference range was not u sed to interpret th is result as normal/abnormal . MPV (test code = 10.7 fL 9.5-12.9 37119-7) NRBC/100 WBC (test See_Comment [Automat ed code = 0859210799) message] The system which generated this result transmit flores reference range : 0.0 - 10.0 /100 WBCs. The reference range was not used to interpret this result as normal/abnormal . NRBC x10^3 (test code <0.01 See_Comment [Auto mated = 7567111966) message] The system which generated this result transmit flores reference range : 10*3/?L. The reference range was not used to interpret this result as normal/abnormal . GRAN MAT (NEUT) % 86.0 % (test code = 770-8) IMM GRAN % (test code 0.50 % = 1242297611) LYMPH % (test code = 7.9 % 736-9) MONO % (test code = 5.0 % 5905-5) EOS % (test code = 0.2 % 713-8) BASO % (test code = 0.4 % 706-2) GRAN MAT x10^3(ANC) 14.52 10*3/uL 1.88-7.09 H (test code = 1993508561) IMM GRAN x10^3 (test 0.09 10*3/uL 0.00-0.06 H code = 2289994039) LYMPH x10^3 (test code 1.33 10*3/uL 1.32-3.29 = 731-0) MONO x10^3 (test code 0.85 10*3/uL 0.33-0.92 = 742-7) EOS x10^3 (test code = 0.03 10*3/uL 0.03-0.39 711-2) BASO x10^3 (test code 0.06 10*3/uL 0.01-0.07 = 704-7) Lab Interpretation Abnormal (test code = 24330-9) [facility] CenterGALV ONLY - SYPHILIS [id number] 14:54:25 Test Item Value Reference Range Interpretation Comments Syphilis IgG/IgM (test Non-reactive Non-reactive code = 19856-8) GAL (test code = GAL) Non-reactive - No serologic evidence of T. pallidum infection. Cannot exclude incubating or early syphilis. Submit a second specimen in 2-4 weeks if syphilis is clinically suspected. Equivocal - Further testing to follow. Reactive - Further testing to follow. Lab Interpretation (test Normal code = 89428-0) [facility] CenterHIV 1/2 AG-AB WITH [id number] 11:27:35 Test Item Value Reference Range Interpretation Comments HIV Negative Negative Semi-quantitative (test code = 26876-9) GAL (test code = Non-reactive for HIV-1 GAL) antigen and HIV-1/HIV-2 antibodies. ?No laboratory evidence of HIV infection. ?Repeat in 2-4 weeks if acute HIV infection is suspected. [facility] CenterHepatitis B Surface [id number] 08:01:59 Test Item Value Reference Range Interpretation Comments HBsAg Semi-Quantitative (test code = Negative Negative 5195-3) [facility] CenterType and Screen - ONCE [id number] 07:37:31 Test Item Value Reference Range Interpretation Comments ABO & RH (test code O POSITIVE Performe d at [facility] = 20) Laboratory Serv [facility] Blood Bank3 [facility] s [address]Olxo Free: [phone] A No. [id number] IAT (test code = Negative Performed a t [facility] 1185) Laboratory Serv [facility] Blood Bank[address] [place] [address] [place] [address]Zdfl Free: [phone] A No. [id number] [facility] WITH [id number] 07:01:37 Test Item Value Reference Range Interpretation Comments WBC (test code = See_Comment H [Automated 9290-2) message] The sy stem which generated this result transmitted reference range : 4.30 - 11.10 10*3/?L. The reference range was not used to interpret this result as normal/abnormal . RBC (test code = See_Comment [Automated 789-8) message] The sy stem which generated this result transmitted reference range : 3.93 - 5.25 10*6/?L. The reference range was not used to interpret this result as normal/abnormal . HGB (test code = 12.1 g/dL 11.6-15.0 718-7) HCT (test code = 36.5 % 35.7-45.2 4544-3) MCV (test code = 89.5 fL 80.6-95.5 787-2) MCH (test code = 29.7 pg 25.9-32.8 785-6) MCHC (test code = 33.2 g/dL 31.6-35.1 786-4) RDW-SD (test code = 41.5 fL 39.0-49.9 03788-5) RDW-CV (test code = 12.7 % 12.0-15.5 788-0) PLT (test code = See_Comment [Automated 777-3) message] The sy stem which generated this result transmitted reference range : 166 - 358 10*3/ ?L. The reference r allie was not used to interpret this result as normal/abnormal . MPV (test code = 11.3 fL 9.5-12.9 47064-3) NRBC/100 WBC (test See_Comment [Automat ed code = 9648986839) message] The system which generated this result transmitted reference range : 0.0 - 10.0 /100 WBCs. The refer ence range was not u sed to interpret th is result as normal/abnormal . NRBC x10^3 (test code <0.01 See_Comment [Auto mated = 6279742776) message] The s ystem which generated this result transmitted reference range : 10*3/?L. The reference range was not used to interpret this result as normal/abnormal . GRAN MAT (NEUT) % 71.9 % (test code = 770-8) IMM GRAN % (test code 1.10 % = 1386022089) LYMPH % (test code = 19.6 % 736-9) MONO % (test code = 5.8 % 5905-5) EOS % (test code = 1.2 % 713-8) BASO % (test code = 0.4 % 706-2) GRAN MAT x10^3(ANC) 9.56 10*3/uL 1.88-7.09 H (test code = 2892463226) IMM GRAN x10^3 (test 0.15 10*3/uL 0.00-0.06 H code = 6418833369) LYMPH x10^3 (test code 2.60 10*3/uL 1.32-3.29 = 731-0) MONO x10^3 (test code 0.77 10*3/uL 0.33-0.92 = 742-7) EOS x10^3 (test code = 0.16 10*3/uL 0.03-0.39 711-2) BASO x10^3 (test code 0.05 10*3/uL 0.01-0.07 = 704-7) Lab Interpretation Abnormal (test code = 90081-6) [facility] [id number] 21:42:00 Test Item Value Reference Range Interpretation Comments POCT PREG (test code = 1605) Positive On board controls acceptable with C Yes Line (test code = 3574) POCT PREG LOT # (test code = 3575) POCT PREG TEST DATE (test code = 3576) [facility] URINALYSIS W SPECIFIC [id number] 21:34:00 Test Item Value Reference Range Interpretation Comments POCT U SP GRAV (test code = 3255) . 1.005-1.025 POCT PH U (test code = 3254) . 5-8 POCT U LEUK EST (test code = 3263) . Negative - Negative POCT U NIT (test code = 3262) . Negative - Negative POCT U PROT (test code = 3259) Trace Negative - Negative POCT U GLU (test code = 3256) Neg Negative - Negative POCT U KETONE (test code = 3258) . Negative - Negative POCT U UROBILI (test code = 3260) . 0.2-1 POCT U BILI (test code = 3261) . Negative - Negative POCT U BLD (test code = 3257) . Negative - Negative POCT U COLOR (test code = 3266) POCT U APPEAR (test code = 3267) [facility] URINALYSIS W/O SPECIFIC [id number] 15:07:00 Test Item Value Reference Range Interpretation Comments POCT PH U (test code = 3254) 5 mg/dl 5-8 POCT U LEUK EST (test code = 2+ Negative - Negative 3263) POCT U NIT (test code = 3262) neg Negative - Negative POCT U PROT (test code = 3259) 1+ Negative - Negative POCT U GLU (test code = 3256) neg Negative - Negative POCT U KETONE (test code = 3258) neg Negative - Negative POCT U BLD (test code = 3257) trace Negative - Negative [facility] URINALYSIS W/O SPECIFIC [id number] 15:07:00 Test Item Value Reference Range Interpretation Comments POCT PH U (test code = 3254) 5 mg/dl 5-8 POCT U LEUK EST (test code = 2+ Negative - Negative 3263) POCT U NIT (test code = 3262) neg Negative - Negative POCT U PROT (test code = 3259) 1+ Negative - Negative POCT U GLU (test code = 3256) neg Negative - Negative POCT U KETONE (test code = 3258) neg Negative - Negative POCT U BLD (test code = 3257) trace Negative - Negative [facility] URINALYSIS W/O SPECIFIC [id number] 15:07:00 Test Item Value Reference Range Interpretation Comments POCT PH U (test code = 3254) 5 mg/dl 5-8 POCT U LEUK EST (test code = 2+ Negative - Negative 3263) POCT U NIT (test code = 3262) neg Negative - Negative POCT U PROT (test code = 3259) 1+ Negative - Negative POCT U GLU (test code = 3256) neg Negative - Negative POCT U KETONE (test code = 3258) neg Negative - Negative POCT U BLD (test code = 3257) trace Negative - Negative [facility]POCT [id number] 15:06:00 Test Item Value Reference Range Interpretation Comments POCT PREG (test code = 1605) Positive On board controls acceptable with C Yes Line (test code = 3574) POCT PREG LOT # (test code = 3575) POCT PREG TEST DATE (test code = 3576) [facility]PO[facility] [id number] 15:06:00 Test Item Value Reference Range Interpretation Comments POCT PREG (test code = 1605) Positive On board controls acceptable with C Yes Line (test code = 3574) POCT PREG LOT # (test code = 3575) POCT PREG TEST DATE (test code = 3576) [facility] [id number] 15:06:00 Test Item Value Reference Range Interpretation Comments POCT PREG (test code = 1605) Positive On board controls acceptable with C Yes Line (test code = 3574) POCT PREG LOT # (test code = 3575) POCT PREG TEST DATE (test code = 3576) [facility]"
[2021-09-08] MEDS ORDERED: LIDOCAINE 1% MPF 5 ML VIAL ONE (01:12)
[2021-09-08] MEDS ORDERED: TETANUS & DIPHTHERIA TOX,ADULT 0.5 ML VIAL ONE (01:13)
[2021-09-08] MEDS ORDERED: CEPHALEXIN 250 MG CAP ONE (02:08)
--- NOTE | 2021-09-08 02:10 | ER ---
Nurse's Notes [facility] Name: Bette Dahl Age: 26 yrs Sex: Female : 1995 Arrival Date: 09/07/2021 Time: 22:12 Bed 25 Private MD: Diagnosis: Laceration, Left forearm Presentation: 09/07 23:23 Chief complaint: Patient states: cut left forearm on broken mirror. Coronavirus screen: lg3 Client denies travel out of the [place] in the last 14 days. At this time, the client does not indicate any symptoms associated with coronavirus-19. Ebola Screen: No symptoms or risks identified at this time. Complicating Factors: There are no complicating factors for this patient. Initial Sepsis Screen: Does the patient meet any 2 criteria? No. Patient's initial sepsis screen is negative. Does the patient have a suspected source of infection? No. Patient's initial sepsis screen is negative. Risk Assessment: Do you want to hurt yourself or someone else? Patient reports no desire to harm self or others. Onset of symptoms was September 07, 2021. 23:23 Method Of Arrival: Ambulatory lg3 23:23 Acuity: SHAKIRA 4 lg3 Triage Assessment: 23:26 General: Appears in no apparent distress. comfortable, Behavior is calm, cooperative. lg3 Pain: Complains of pain in left forearm. EENT: No deficits noted. No signs and/or symptoms were reported regarding the EENT system. Neuro: No deficits noted. Level of Consciousness is awake, alert, obeys commands, Oriented to person, place, time, situation. Cardiovascular: No deficits noted. Capillary refill < 3 seconds Clubbing of nail beds is absent JVD is absent Patient's skin is warm and dry. Respiratory: No deficits noted. Airway is patent Trachea midline Respiratory effort is even, unlabored, Respiratory pattern is regular, symmetrical. GI: No deficits noted. No signs and/or symptoms were reported involving the gastrointestinal system. : No deficits noted. No signs and/or symptoms were reported regarding the genitourinary system. Derm: Wound noted left forearm. Musculoskeletal: No deficits noted. No signs and/or symptoms reported regarding the musculoskeletal system. Circulation, motion, and sensation intact. Range of motion: intact in all extremities. Injury Description: Laceration. CELL RELINER: 23:31 LMP 07/31/2021 lg3 Historical: - Allergies: 23:26 No Known Allergies; lg3 - Home Meds: 23:26 None [Active]; lg3 - PMHx: 23:26 None; lg3 - PSHx: 23:26 Cholecystectomy; lg3 - Immunization history:: Adult Immunizations up to date, Last tetanus immunization: unknown. - Social history:: Smoking status: Patient denies any tobacco usage or history of. Patient uses alcohol, on a daily basis. Screenin/04 00:12 Abuse screen: Denies threats or abuse. Nutritional screening: No deficits noted. al4 Tuberculosis screening: No symptoms or risk factors identified. Fall Risk No fall in past 12 months (0 pts). No IV (0 pts). Ambulatory Aid- None/Bed Rest/Nurse Assist (0 pts). Gait- Normal/Bed Rest/Wheelchair (0 pts) Mental Status- Oriented to own ability (0 pts). Total Cervantes Fall Scale indicates No Risk (0-24 pts). Assessment: 09/07 23:54 General: Appears in no apparent distress. comfortable, Behavior is calm, cooperative, al4 patient states she broke a mirror and was trying to save it and cut her forearm . Pain: Complains of pain in dorsal aspect of left forearm. Neuro: Level of Consciousness is awake, alert, obeys commands, Oriented to person, place, time, situation. Cardiovascular: Capillary refill < 3 seconds Patient's skin is warm and dry. Respiratory: Airway is patent Respiratory effort is unlabored, Respiratory pattern is regular. Derm: Skin is intact, Wound noted dorsal aspect of left forearm Wound is about an inch, not bleeding. Injury Description: Laceration sustained to dorsal aspect of left forearm is clean, not bleeding. 09/08 01:05 Reassessment: Patient is alert, oriented x 3, equal unlabored respirations, skin al4 warm/dry/pink. 02:09 Reassessment: Patient and/or family updated on plan of care and expected duration. Pain al4 level reassessed. Patient is alert, oriented x 3, equal unlabored respirations, skin warm/dry/pink. Vital Signs: 09/07 23:23 BP 128 / 69; Pulse 106; Resp 16 S; Temp 98.3(O); Pulse Ox 100% on R/A; Weight 86.18 kg lg3 (R); Height 4 ft. 10 in. (147.32 cm) (R); Pain 2/10; 23:54 BP 123 / 72; Pulse 88; Resp 18 S; Temp 99; Pulse Ox 100% on R/A; al4 09/08 01:30 BP 122 / 88; Pulse 97; Resp 18 S; Pulse Ox 100% on R/A; al4 01:45 BP 132 / 79; Pulse 90; Resp 18; Pulse Ox 100% on R/A; al4 09/07 23:23 Body Mass Index 39.71 (86.18 kg, 147.32 cm) lg3 ED Course: 09/07 22:12 Patient arrived in ED. jj6 23:26 Triage completed. lg3 23:31 Arm band placed on right wrist. lg3 23:35 Sulaiman Coronel MD is Attending Physician. [facility] 23:48 Abad Jean Baptiste is Primary Nurse. al4 09/08 00:12 Bed in low position. Pulse ox on. NIBP on. al4 02:08 Assist provider with laceration repair on left arm using sutures. Set up tray. al4 Performed by Sulaiman Coronel MD Patient tolerated well. 02:13 Patient did not have IV access during this emergency room visit. al4 Administered Medications: 01:27 Drug: Tetanus-Diphtheria Toxoid Adult 0.5 ml {Ecg Technician: [employer]. Exp: al4 08/16/2023. Lot #: [id number]. } Route: IM; Site: right deltoid; 02:09 Follow up: Response: No adverse reaction al4 02:08 Drug: KeFLEX (cephalexin) 500 mg Route: PO; al4 02:13 Follow up: Response: No adverse reaction al4 02:09 Drug: Lidocaine (1 %) 5 ml {Note: MD Coronel used during suture.} Volume: 5 ml; Route: al4 Infiltration; Outcome: 02:09 Discharge ordered by . [facility] 02:12 Discharged to home ambulatory, with family. al4 02:12 Condition: stable 02:12 Discharge instructions given to patient, Instructed on discharge instructions, follow up and referral plans. medication usage, Demonstrated understanding of instructions, follow-up care, medications, Prescriptions given X 1. 02:20 Patient left the ED. al4 Signatures: Maggie Denny, RN RN lg3 Sulaiman Coronel MD MD mh7 Sandee Domingo jj6 Abad Jean Baptiste al4 Corrections: (The following items were deleted from the chart) 00:49 09/07 23:54 General: Appears in no apparent distress. comfortable, Behavior is calm, al4 cooperative, al4
--- NOTE | 2021-09-08 02:10 | EDPHYS ---
Physician Documentation [facility] Name: Bette Dahl Age: 26 yrs Sex: Female : 1995 Arrival Date: 09/07/2021 Time: 22:12 Bed 25 Private MD: ED Physician Sulaiman Coronel HPI: 09/08 01:10 This 26 yrs old Female presents to ER via Ambulatory with complaints of mh7 Laceration To Arm. 01:10 The patient has a laceration related to: doing crafts, broken mirror, occurred at home, mh7 and cut on mirror that was already broken when her arm grazed up against it The injury was accidental. The laceration(s) is(are) located on the dorsal aspect of left forearm. Onset: The symptoms/episode began/occurred last night, 4 hour(s) ago. Associated signs and symptoms: Pertinent negatives: deformity, dizziness, heavy bleeding, loss of consciousness, numbness distal to injury, suspected foreign body. 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 - Social history:: Smoking status: Patient denies any tobacco usage or history of. Patient uses alcohol, on a daily basis. ROS: 09/08 01:10 Constitutional: Negative for fever, chills, and weight loss, Eyes: Negative for injury, mh7 pain, redness, and discharge, ENT: Negative for injury, pain, and discharge, Neck: Negative for injury, pain, and swelling, Cardiovascular: Negative for chest pain, palpitations, and edema, Respiratory: Negative for shortness of breath, cough, wheezing, and pleuritic chest pain, Abdomen/GI: Negative for abdominal pain, nausea, vomiting, diarrhea, and constipation, Back: Negative for injury and pain, : Negative for injury, bleeding, discharge, and swelling, Neuro: Negative for headache, weakness, numbness, tingling, and seizure, Psych: Negative for depression, anxiety, suicide ideation, homicidal ideation, and hallucinations, Allergy/Immunology: Negative for hives, rash, and allergies, Endocrine: Negative for neck swelling, polydipsia, polyuria, polyphagia, and marked weight changes, Hematologic/Lymphatic: Negative for swollen nodes, abnormal bleeding, and unusual bruising. Exam: 09/07 01:10 Musculoskeletal/extremity: Extremities: noted in the dorsal aspect of left forearm: mh7 laceration, ROM: intact in all extremities, Circulation is intact in all extremities. Sensation intact. Compartment Syndrome exam of affected extremity: is normal. no pain, no numbness, no tingling, no sensation deficit, no palor, no weak pulses, Joints: All joints appear normal with full range of motion. Tendon exam: specific tendon testing normal through active and passive range of motion 01:10 Skin: injury, laceration(s), the wound is approximately 2.5 cm(s), with a depth of mh7 0.25 cm(s), of the dorsal aspect of left forearm, that can be described as clean, no foreign body, irregular, without bleeding. 09/08 01:10 Constitutional: This is a well developed, well nourished patient who is awake, alert, mh7 and in no acute distress. Head/Face: Normocephalic, atraumatic. Neuro: Awake and alert, GCS 15, oriented to person, place, time, and situation. Cranial nerves II-XII grossly intact. Motor strength 5/5 in all extremities. Sensory grossly intact. Cerebellar exam normal. Normal gait. Psych: Awake, alert, with orientation to person, place and time. Behavior, mood, and affect are within normal limits. Vital Signs: 09/07 23:23 BP 128 / 69; Pulse 106; Resp 16 S; Temp 98.3(O); Pulse Ox 100% on R/A; Weight 86.18 kg lg3 (R); Height 4 ft. 10 in. (147.32 cm) (R); Pain 2/10; 23:54 BP 123 / 72; Pulse 88; Resp 18 S; Temp 99; Pulse Ox 100% on R/A; al4 09/08 01:30 BP 122 / 88; Pulse 97; Resp 18 S; Pulse Ox 100% on R/A; al4 01:45 BP 132 / 79; Pulse 90; Resp 18; Pulse Ox 100% on R/A; al4 09/07 23:23 Body Mass Index 39.71 (86.18 kg, 147.32 cm) lg3 Laceration: 02:06 Wound Repair of 2.5cm ( 1.0in ) subcutaneous laceration to dorsal aspect of left mh7 forearm. Irregularly shaped.. Distal neuro/vascular/tendon intact. Anesthesia: Local anesthetic administered with 3 mls of 1% lidocaine. Wound prep: Extensive cleansing with hibiclenz by me, Wound irrigation with saline by me, Wound explored extensively, Copious irrigation. Skin closed with 5 4-0 Prolene using simple sutures and sterile technique. Dressed with Neosporin, non-adherent dressing. Patient tolerated well. MDM: 02:06 Differential diagnosis: superficial laceration, tendon injury, vascular injury. Data [facility] reviewed: vital signs, nurses notes. Data interpreted: Pulse oximetry: on room air is 100 %. Interpretation: normal. Counseling: I had a detailed discussion with the patient and/or guardian regarding: the historical points, exam findings, and any diagnostic results supporting the discharge/admit diagnosis, the need for outpatient follow up, to return to the emergency department if symptoms worsen or persist or if there are any questions or concerns that arise at home. Response to treatment: the patient's symptoms have markedly improved after treatment. 02:09 Patient medically screened. 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 Exp: al4 08/16/2023. Lot #: [id number]. } Route: IM; Site: right deltoid; 02:09 Follow up: Response: No adverse reaction al4 02:08 Drug: KeFLEX (cephalexin) 500 mg Route: PO; al4 02:13 Follow up: Response: No adverse reaction al4 02:09 Drug: Lidocaine (1 %) 5 ml {Note: MD Coronel used during suture.} Volume: 5 ml; Route: al4 Infiltration; Disposition Summary: 09/08/21 02:09 Discharge Ordered Location: Home [facility] Problem: new [facility] Symptoms: have improved [facility] Condition: Stable [facility] Diagnosis - Laceration, Left forearm [facility] Followup: [facility] - With: Private Physician - When: 1 - 2 days - Reason: Wound Recheck, Worsening of condition, Recheck today's complaints, Continuance of care, Re-evaluation by your physician Followup: [facility] - With: Emergency Department - When: 48 Hours - Reason: Wound Recheck, Worsening of condition, Recheck today's complaints, Re-evaluation by your physician Discharge Instructions: - Discharge Summary Sheet [facility] - Laceration Care, Adult, [id number] [facility] - Sutured Wound Care, [id number] [facility] Forms: - Medication Reconciliation Form [facility] - Thank You Letter [facility] - Antibiotic Education [facility] - Prescription Opioid Use [facility] Prescriptions: - Cephalexin 500 mg Oral Capsule - take 1 capsule by ORAL route every 8 hours for 7 days; 21 capsule; Refills: 0, 7 Product Selection Permitted Signatures: Maggie Denny RN RN 3 Sulaiman Coronel MD MD 7 Abad Jean Baptiste pr4
[2021-09-08 02:33] VITALS: O2SAT 100
[2021-09-08 02:34] VITALS: TEMP 99
[2021-09-08 02:38] VITALS: BP 132/79
== END 2021-09-08 02:20 | disposition home or self-care (01) ==
LOC: ER 22:08
PROC: 0JQH0ZZ Repair Left Lower Arm Subcutaneous Tissue and Fascia, Open Approach (ICD-10-PCS; principal; 2021-09-08)
DX: S51.812A Laceration without foreign body of left forearm, initial encounter (principal); W25.XXXA Contact with sharp glass, initial encounter; Z23 Encounter for immunization
CPT/HCPCS: 90471; 90714; 99284